=== PATIENT | male | born 1945 | race Caucasian/White ===

== ENCOUNTER → 2017-06-25 13:17 | Outpatient (CLI) | payer MEDICARE, OTHER, SELFPAY ==
[2017-06-25 15:47] LABS: Absolute Lymphocyte Count 0.99 X10^3/ul (0.83-4.51); Absolute Neutrophil Count 2.6 X10^3/uL (2.0-7.7); Basophil# 0.03 X10^3/uL; Basophil% 0.7 % (0-1); Eosinophil# 0.12 X10^3/uL; Eosinophils% 2.9 % (0-5); Hematocrit 41.8 % (40-54); Hemoglobin 13.6 g/dl (13.0-16.5); Lymphocyte # 0.99 X10^3/ul (4.0); Lymphocyte % 24.3 % (19-41); Mean Corp Hgb Conc 32.5 g/gl (32-36); Mean Corpuscular Hgb 28.8 pg (27.0-32.0); Mean Corpuscular Volume 88.6 fL (80-94); Monocyte# 0.36 X10^3/uL; Monocyte% 8.8 % (0-10); Neutrophil # 2.57 X10^3/uL (2.7-7.7); Neutrophil % 63.1 % (47-70); Platelet Count 167 K/mm3 (150-450); RBC Distribution Width CV 14.3 % (11.6-14.6); RBC Distribution Width SD 46.2 fl (35.1-43.9); Red Blood Count 4.72 M/mm3 (4.6-6.2); White Blood Count 4.1 K/mm3 (4.4-11.0)
[2017-06-25 16:07] LABS: POSITIVE COUNT NO; POSITIVE DIFFERENTIAL NO; POSITIVE MORPHOLOGY NO
[2017-06-25 16:30] LABS: ALB/GLOB Ratio 1.2 RATIO (0.9-2.4); AST(SGOT) 19 U/L (15-37); Alanine Aminotransfer ALT/SGPT 33 U/L (12-78); Albumin, Serum 3.6 g/dL (3.4-5.0); Alkaline Phosphatase 59 U/L (45-117); Anion Gap 6 (5-15); BUN 17 mg/dL (7-18); BUN/Creat Ratio 17.9 RATIO (10-20); Calcium,Total 8.7 mg/dL (8.5-10.1); Chloride 106 mmol/L (98-107); Cholesterol 183 mg/dL (200); Creatinine, Serum 0.95 mg/dL (0.70-1.30); EST Glomerular Filtration Rate 83 mL/min (>60); Est Glom Filt Rate - Afr Amer 100 mL/min (>60); Globulin 3.1 g/dL (2.2-4.2); Glucose 109 mg/dL (70-110); Hemoglobin A1c 6.2 % (4.2-6.3); High Density Lipoprotein 56 mg/dL; Magnesium 2.1 mg/dL (1.6-2.6); Potassium 4.3 mmol/L (3.5-5.1); Protein, Total 6.7 g/dL (6.4-8.2); Sodium Level 143 mmol/L (136-145); Thyroid Stim Hormone (TSH) 0.88 uIU/mL (0.358-3.74); Triglycerides 112 mg/dL; Very Low Density Lipoprotein 22 mg/dL (5-40)
[2017-06-26 08:46] LABS: Vitamin B12 557 pg/mL (211-911); Vitamin D,25 Hydroxy 28.2 ng/mL
[2017-06-30 09:40] LABS: ANTINUCLEAR ANTIBODIES DIRECT Negative (Negative)
== END ==
PROVIDERS: Family Provider Family Medicine; PCP Family Medicine; Visit Provider Family Medicine
DX: R53.83 Other fatigue (principal); E11.9 Type 2 diabetes mellitus without complications; E78.5 Hyperlipidemia, unspecified; E83.42 Hypomagnesemia; I10 Essential (primary) hypertension
CPT/HCPCS: 36415; 80053; 80061; 82306; 82607; 83036; 83735; 84443; 85025; 86038; 86225; 86235

== ENCOUNTER 2017-08-05 12:45 | Outpatient (RCR) | payer MEDICARE, OTHER, SELFPAY | END 2017-08-29 23:59 | LOC: DC 12:45 | PROVIDERS: Family Provider Family Medicine; PCP Family Medicine; Visit Provider Family Medicine | DX: E11.9 Type 2 diabetes mellitus without complications (principal); Z71.3 Dietary counseling and surveillance | CPT/HCPCS: 97802 ==

== ENCOUNTER 2017-09-03 16:44 | Outpatient (RCR) | payer MEDICARE, OTHER, SELFPAY | END 2017-09-28 23:59 | LOC: DC 16:44 | PROVIDERS: Family Provider Family Medicine; PCP Family Medicine; Visit Provider Family Medicine | DX: E11.9 Type 2 diabetes mellitus without complications (principal); Z71.3 Dietary counseling and surveillance | CPT/HCPCS: G0109 ==

== ENCOUNTER → 2017-10-15 16:18 | Outpatient (CLI) | payer MEDICARE, OTHER, SELFPAY ==
[2017-10-15 18:17] LABS: Hemoglobin A1c 6.3 % (4.2-6.3)
[2017-10-17 10:57] LABS: Hep C Antibodies <0.1 s/co ratio (0.0-0.9)
== END ==
PROVIDERS: Family Provider Family Medicine; PCP Family Medicine; Visit Provider Family Medicine
DX: E11.9 Type 2 diabetes mellitus without complications (principal); R53.81 Other malaise; R53.83 Other fatigue; E55.9 Vitamin D deficiency, unspecified
CPT/HCPCS: 36415; 82306; 83036; 86803

== ENCOUNTER → 2017-10-22 09:52 | Outpatient (CLI) | payer MEDICARE, OTHER, SELFPAY ==
--- NOTE | 2017-10-22 09:56 | RAD_ITS ---
STUDY: X-RAY - LUMBAR SPINE REASON FOR EXAM: Male, 72 years old. Low back pain, history of prostate CA TECHNIQUE: 5 view(s) of the lumbar spine were obtained. COMPARISON: Previous study of July 21, 2016 FINDINGS: Normal lumbar lordosis. There is a minimal thoracolumbar dextroscoliosis. There is a normal alignment of the vertebrae. There is diffuse endplate spondylosis of the lumbar spine. There is mild narrowing of the L5-S1 disc space. There is no evidence of fracture, spondylolysis, or spondylolisthesis. There is a mild dysraphism of the posterior elements of L5. There are calcified plaques of the abdominal aorta. RAD/L/S Spine Min 4 Views IMPRESSION: 1. Minimal thoracolumbar dextroscoliosis. 2. Diffuse endplate spondylosis of the lumbar spine. 3. Mild narrowing of the L5-S1 disc space. 4. Mild dysraphism of the posterior elements of L5. 5. No lytic or blastic osseous changes are seen. 6. Findings are similar to the previous study. 7. If clinically indicated, nuclear bone scan may be helpful for further evaluation. Electronically Signed: Isaiah Kim MD at 17:16 EDT , Service support ,
== END ==
PROVIDERS: Family Provider Family Medicine; PCP Family Medicine; Visit Provider Family Medicine
DX: M51.36 Other intervertebral disc degeneration, lumbar region (principal)
CPT/HCPCS: 72110

== ENCOUNTER → 2017-12-15 10:30 | Outpatient (CLI) | payer MEDICARE, OTHER, SELFPAY ==
[2017-12-15 12:26] LABS: PSA,Total- Diagnostic 3.66 ng/mL (0.0-4.0)
== END ==
PROVIDERS: Family Provider Family Medicine; PCP Family Medicine; Visit Provider Urology
DX: C61 Malignant neoplasm of prostate (principal)
CPT/HCPCS: 36415; 84153

== ENCOUNTER → 2017-12-23 08:24 | Outpatient (CLI) | payer MEDICARE, OTHER, SELFPAY ==
[2017-12-26 16:08] LABS: Testosterone, Free 10.12 ng/dL (5.00-21.00)
[2017-12-27 07:42] LABS: Testosterone, % Free 1.86 % (1.50-4.20); Testosterone, Total 544 ng/dL (264-916)
== END ==
PROVIDERS: Family Provider Family Medicine; PCP Family Medicine; Visit Provider Family Medicine
DX: R53.83 Other fatigue (principal); Z13.29 Encounter for screening for other suspected endocrine disorder
CPT/HCPCS: 36415; 84402; 84403

== ENCOUNTER → 2017-12-29 09:30 | Outpatient (CLI) | payer MEDICARE, OTHER, SELFPAY ==
--- NOTE | 2017-12-29 09:32 | STE_ITS ---
Reason For Study: Chest Pain; Fatigue Stress Results Protocol: Travis Protocol Maximum Predicted HR: 148 bpm Target HR: 126 bpm% Max imum Predicted HR: 105 % DurationHeart Rate Stage (mm:ss) (bpm) BPCom ment Baseline 64 118/70 No Chest Pain Travis Protocol Stage I 3:00 10 7 110/64No Chest Pain; Mild Dyspnea Travis Protocol Stage II 3:00 13 1 138/64No Chest Pain; Mild Dyspnea Travis Protocol Stage III 1:30 15 5 / No Chest Pain; Moderate Dyspnea Recovery 78 122/70 No Chest Pain Stress Duration: 7:30 mm:ss Maximum Stress HR: 155 bpmM ETS: 9 Baseline Echocardiogram Findings Stress Echo Wall motion Data Resting WMIntermediate WMStress WM Resting Wall Motion Wall Motion Stress All segments Normal. All segments Hyperkinetic. Ejection Fraction 55 %. Ejection Fraction 70 %. Stress Results Heart rate response: appropriate Blood pressure response: appropriate Arrhythmias: none Functional capacity: good Stopped secondary to: dyspnea. EKG Data Baseline ECG: NSR. Peak exercise ECG: no obvious ECG changes. Symptoms with Stress No c/o chest pain during exercise / recovery. Interpretation Summary Negative (adequate) Stress Echocardiogram Ordering Physician: Stevie Cerna D.O. Referring Physician: Jamal Austin M.D. Performed By: Marilee Ontiveros, RDCS, RVT
== END ==
PROVIDERS: Family Provider Family Medicine; PCP Family Medicine; Visit Provider Family Medicine
DX: R07.9 Chest pain, unspecified (principal); R53.83 Other fatigue; E11.9 Type 2 diabetes mellitus without complications
CPT/HCPCS: 93017; 93350

== ENCOUNTER → 2018-03-13 08:52 | Outpatient (CLI) | payer MEDICARE, OTHER, SELFPAY ==
--- NOTE | 2018-03-13 08:56 | US_ITS ---
PROCEDURES: ULTRASOUND AORTA REASON FOR EXAM: Male, 73 years old. Abdominal aortic aneurysm. TECHNIQUE: Ultrasound evaluation of the aorta was performed with real-time and static casillas-scale imaging. COMPARISON: None. FINDINGS: There is no elongation or tortuosity of the abdominal aorta. Atherosclerotic plaque is present, without demonstrated luminal narrowing. Aorta measures: Proximal 2.6 cm. Middle 1.9 cm. Distal 1.6 cm. Aorta measure transversely: Proximal 2.0 cm. Middle 2.1 cm. Distal 1.9 cm. Right iliac artery measures: 1.5 cm. Right iliac artery measure transversely: 1.3 cm. Left iliac artery measures: 1.1 cm. Left iliac artery measure transversely: 0.9 cm. There is no demonstrated aneurysm.. US/Aorta IMPRESSION: No evidence for aortic aneurysm. Electronically Signed: Lake Trent MD at 6:48 EDT , Service support ,
== END ==
PROVIDERS: Family Provider Family Medicine; PCP Family Medicine; Referring Provider Family Medicine; Visit Provider Family Medicine
DX: I71.4 Abdominal aortic aneurysm, without rupture (principal)
CPT/HCPCS: 76775

== ENCOUNTER → 2018-03-20 08:29 | Outpatient (CLI) | payer MEDICARE, OTHER, SELFPAY ==
[2018-03-20 10:33] LABS: T4 Free Direct 0.74 ng/dL (0.76-1.46); Thyroid Stim Hormone (TSH) 1.17 uIU/mL (0.358-3.74)
== END ==
PROVIDERS: Family Provider Family Medicine; PCP Family Medicine; Referring Provider Family Medicine; Visit Provider Family Medicine
DX: R53.81 Other malaise (principal); R53.83 Other fatigue
CPT/HCPCS: 36415; 82533; 84439; 84443

== ENCOUNTER → 2018-04-30 08:03 | Outpatient (CLI) | payer MEDICARE, OTHER, SELFPAY ==
[2018-04-28 14:35] VITALS: BMI 24.6
[2018-04-30 08:59] LABS: Absolute Lymphocyte Count 1.21 X10^3/ul (0.83-4.51); Absolute Neutrophil Count 2.7 X10^3/uL (2.0-7.7); Basophil# 0.02 X10^3/uL; Basophil% 0.4 % (0-1); Eosinophil# 0.14 X10^3/uL; Eosinophils% 3.1 % (0-5); Hematocrit 46.3 % (40-54); Hemoglobin 15.3 g/dl (13.0-16.5); Lymphocyte # 1.21 X10^3/ul (4.0); Lymphocyte % 26.8 % (19-41); Mean Corpuscular Volume 87.9 fL (80-94); Mean Platelet Vol. 10.6 fl (6.2-12.0); Monocyte# 0.46 X10^3/uL; Monocyte% 10.2 % (0-10); Neutrophil # 2.69 X10^3/uL (2.7-7.7); Neutrophil % 59.5 % (47-70); POSITIVE COUNT NO; POSITIVE DIFFERENTIAL NO; POSITIVE MORPHOLOGY NO; Platelet Count 191 K/mm3 (150-450); RBC Distribution Width CV 13.9 % (11.6-14.6); RBC Distribution Width SD 44.6 fl (35.1-43.9); Red Blood Count 5.27 M/mm3 (4.6-6.2); White Blood Count 4.5 K/mm3 (4.4-11.0)
[2018-04-30 09:20] LABS: Free T3 3.1 pg/mL (2.18-3.98); Iron 64 ug/dL (65-175); Iron Binding Capacity,Total 391 ug/dL (250-450); T4 Free Direct 0.87 ng/dL (0.76-1.46); Thyroid Stim Hormone (TSH) 1.53 uIU/mL (0.358-3.74)
[2018-05-01 09:18] LABS: Thyroid Peroxidase AB 9 IU/mL (0-34)
--- OUTSIDE RECORDS SUMMARY | 2018-06-25 01:41 | XMS RPT_ITS ---
:1945 Author Organization OHIP Support Name Relationship Address Phone [employer] Unavailable [address] + [place] [address] SAIHÉTCOR Unavailable [address] + [place] [address] [employer] Unavailable [address] + [place] [address] SAI HÉCTOR Unavailable [address] + [place] [address] [employer] Unavailable [address] + [place] [address] SAICHEYENNEIE Unavailable [address]PERATOR + [place] [address] [employer] Unavailable [address] + [place] [address] SAICHEYENNEIE Unavailable [address]PERATOR + [place] [address] [employer] Unavailable [address] + [place] [address] HÉCTOR GIBBS Unavailable [address] + [place] [address] [employer] Unavailable [address] + [place] [address] HÉCTOR GIBBS Unavailable [address] + [place] [address] [employer] Unavailable [address] + [place] [address] HÉCTOR GIBBS Unavailable [address] + [place] [address] [employer] Unavailable [address] + [place] [address] SAICHEYENNEIE Unavailable [address] + [place] [address] [employer] Unavailable [address] + [place] [address] SAI HÉCTOR Unavailable [address] + [place] [address] BUEM[employer] Unavailable [address] + [place] [address] SAI HÉCTOR Unavailable [address] + [place] [address] [employer] Unavailable [address] + [place] [address] SAI, HÉCTOR Unavailable [address] + [place] [address] BUEM[employer] Unavailable [address] + [place] [address] SAICHEYENNEIE Unavailable [address] + [place] [address] [employer] Unavailable [address] + [place] [address] SAICHEYENNEIE Unavailable [address] + [place] [address] [employer] Unavailable [address] + [place] [address] SAICHEYENNEIE Unavailable [address] + [place] [address] [employer] Unavailable [address] + [place] [address] SAICHEYENNEIE Unavailable [address] + [place] [address] [employer] Unavailable [address] + [place] [address] SAI HÉCTOR Unavailable [address] + [place] [address] [employer] Unavailable [address] + [place] [address] SAI HÉCTOR Unavailable [address] + [place] [address] [employer] Unavailable [address] + [place] [address] HÉCTOR GIBBS Unavailable [address] + [place] [address] Care Team Providers Name Role Phone Compa Luo Chilango Attending Unavailable Compa Luo Admitting Unavailable ErynStevie Primary Care Unavailable ErynStevie Attending Unavailable Eryn, Stevie Referring Unavailable Eryn, Stevie Primary Care Unavailable SadiaCapo Attending Unavailable Eryn, Stevie Primary Care Unavailable Eryn, Stevie Attending Unavailable Eryn, Stevie Primary Care Unavailable Eryn, Stevie Attending Unavailable Eryn, Stevie Referring Unavailable Eryn, Stevie Primary Care Unavailable Eryn, Stevie Attending Unavailable Eryn, Stevie Referring Unavailable Eryn, Stevie Primary Care Unavailable Eryn, Stevie Attending Unavailable Eryn, Stevie Referring Unavailable Eryn, Stevie Primary Care Unavailable Eryn, Stevie Attending Unavailable Eryn, Stevie Primary Care Unavailable Eryn, Stevie Attending Unavailable Eryn, Stevie Primary Care Unavailable Eryn, Stevie Attending Unavailable Eryn, Stevie Referring Unavailable Eryn, Stevie Primary Care Unavailable SadiaCapo Attending Unavailable SadiaCapo Referring Unavailable Eryn, Stevie Primary Care Unavailable Eryn, Stevie Attending Unavailable Eryn, Stevie Primary Care Unavailable Eryn, Stevie Attending Unavailable Eryn, Stevie Referring Unavailable Eryn, Stevie Primary Care Unavailable Jamal Austin Attending Unavailable Eryn, Stevie Attending Unavailable Eryn, Stevie Referring Unavailable Eryn, Stevie Primary Care Unavailable Eryn, Stevie Attending Unavailable Eryn, Stevie Primary Care Unavailable ErynStevie Referring Unavailable Joselyn Krause HORSE SHOER-C Attending Unavailable ErynStevie Referring Unavailable Joselyn Krause HORSE SHOER-C Attending Unavailable Joselyn Krause HORSE SHOER-C Referring Unavailable Eryn, Stevie Primary Care Unavailable Joselyn Krause HORSE SHOER-C Attending Unavailable Joselyn Krause HORSE SHOER-C Referring Unavailable Eryn, Stevie Primary Care Unavailable PROBLEMS PROBLEMS DATE TYPE CONDITION / CODE ATTENDING STATUS SOURCE 03/20/2018 Unknown R53.83 - Other Stevie Cerna Active [place] fatigue / Community R53.83(ICD-10) Hospital Repository 03/20/2018 Unknown R53.81 - Other Stevie Cerna Active [place] malaise / Community R53.81(ICD-10) Hospital Repository 01/27/2018 Unknown R07.9 - Chest pain, MoodispaJamal chiang Active [place] unspecified / Community R07.9(ICD-10) Hospital Repository 11/11/2017 Unknown E11.9 - Type 2 Stevie Cerna Active [place] diabetes mellitus Community without Hospital complications / Repository E11.9(ICD-10) 10/22/2017 Unknown M51.36 - Other Stevie Cerna Active [place] intervertebral disc Community degeneration, lumbar Hospital region / Repository M51.36(ICD-10) 10/15/2017 Unknown E55.9 - Vitamin D Stevie Cerna Active [place] deficiency, Community unspecified / Hospital E55.9(ICD-10) Repository PROCEDURES PROCEDURES No Procedure Records FoundRESULTS RESULTS THYROID Observed: 05/06/2018 Status: F Source: [place] 2:46 PM [facility] REPOSITORY [facility] Imaging Services [address] [place] [address] Thyroid MR#: [id number] Acct: [id number] Name: VENESSA GIBBS Rep #: [id number] : 1945 M 73 From: Venessa Lipscomb MD PCP: Stevie Cerna DO Status: REG CLI Study: Thyroid Date of Exam: 05/06/18 Exam# [id number] Ordering Dr: Joselyn Krause HORSE SHOER-C STUDY: THYROID ULTRASOUND REASON FOR EXAM: Male, 73 years old. Difficulty swallowing TECHNIQUE: Ultrasound evaluation of the thyroid was performed with real-time and static casillas-scale imaging. COMPARISON: None. FINDINGS: RIGHT LOBE: The right lobe of the thyroid gland measures 5.0 x 2.3 x 1.7 cm. There is a homogeneous echotexture. An ovoid well-defined cystic nodule is present in the lateral right thyroid lobe measuring 6 x 5 x 4 mm. Demonstrates mild perinodular vascularity. No echogenic foci. LEFT LOBE: The left lobe of the thyroid gland measures 3.8 x 1.7 x 1.6 cm. There is a homogeneous echotexture. There are no demonstrated solid, cystic or complex lesions. ISTHMUS: The isthmus measures 3 mm . US/Thyroid IMPRESSION: Small right thyroid nodule without suspicious secondary features. Consider continued ultrasound follow-up. Electronically Signed: Venessa Lipscomb MD at 10:06 EST Tel , Service support , CC: Joselyn Krause NP; Stevie Cerna DO Rod Filler: Signed OFFICE VISIT REPORT Observed: 04/30/2018 Status: F Source: [place] 11:[address] [place] [address] OFFICE VISIT Date of Service: 04/28/18 MR#: [id number] Acct: [id number] Patient: VENESSA GIBBS Rep #: [id number] : 1945 Provider: Joselyn Krause NP Age/Sex: 73/M Location: [facility] – [place] Status: Signed Intake Vital Signs04/28/18 Height 5 ft 5 in 04/28/18 Weight: 148 lb 4 oz 04/28/18 Body Mass Index (BMI) 24.6 04/28/18 Blood Pressure 131/82 H 04/28/18 Blood Pressure Location Lt popliteal 04/28/18 Blood Pressure Position Sitting Intake Visit Reasons: POSSIBLE THYROID Medical Aide Required: No Accompanied by: Self Allergies No Known Allergies Allergy (Unverified 04/28/18 14:22) Medications desvenlafaxine succinate ER 50 mg tablet,extended release 24 hr 50 mg PO DAILY 04/28/18 [History Confirmed 04/28/18] lovastatin 10 mg tablet 10 mg PO DAILY 04/28/18 [History Confirmed 04/28/18] PFSH Medical History Anxiety and depression (Acute) Arthritis (Acute) Cataracts, bilateral (Acute) Glaucoma (Acute) Prostate cancer (Acute) Seasonal allergies (Acute) Chronic headaches (Chronic) HTN (hypertension) (Chronic) Family History Unknown Arthritis Diabetes Heart disease Hypertension Social History Smoking Status: Never smoker alcohol intake: never substance use type: does not use Questionnaire Depression Screen PHQ-2/9 PHQ-2 Over the last 2 weeks, how often have you been bothered by any of the following problems? 1. Little interest or pleasure in doing things: more than half the days 2. Feeling down, depressed, or hopeless: several days Total score: 3 If score is 2 or greater, continue 3. Trouble falling or staying asleep, or sleeping too much: more than half the days 4. Feeling tired or having little energy: nearly every day 5. Poor appetite or overeating: not at all 6. Feeling bad about yourself - or that you are a failure or have let yourself and your family down: more than half the days 7. Trouble concentrating on things, such as reading the newspaper or watching television: nearly every day 8. Moving or speaking so slowly that other people could have noticed? - Or the opposite - being so fidgety or restless that you have been moving around a lot more than usual: more than half the days 9. Thoughts that you would be better off or of hurting yourself in some way: not at all Total score: 15 If you checked off any problems, how difficult have these problems made it for you to do your work, take care of things at home, or get along with other people?: extremely difficult Source: Developed by Drs. Raphael Lorenzo, Sujatha Devine, Alex Carter and colleagues, with an educational naomi from [employer] in [place]. Scoring: Total Score Depression Severity Action 1-4 Minimal depression No action needed 5-9 Mild depression Repeat PHQ-9 at follow up 10-14 Moderate depression Make tx plan,consider counseling, fup, prescription HPI HPI Details: VENESSA GIBBS, is a 73 M who presents to the office today for consult of fatigue. Patient of Dr. Cerna. He has had several lab tests done which were found to be normal. His one lab that was abnormal was a sl low T4. Patient reports he sleeps 8-9 hours each night and is still somewhat tired in the am and he takes a short nap each day. Does not fall asleep in the evening while watching TV. Uses C pap at night. No night sweats but does wake to void 2 times each night. Reports he falls back to sleep easily. Reports hot intolerance in the summer but cold intolerance in the winter. No recent change in weight. Severity, modifying factors, context, and associated signs and symptoms are as follows: Thyroid pain: No Energy: Reduced Sleep: Not awakened refreshed Temp: Heat and cold intolerance GI: Normal bowel Weight: Flucuates Eyes: No change in vision Memory: unchanged Diaphoresis: Not significant Skin: Dry Hair : Unchanged Neuro: No numbness, tingling . 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 At time of visit: -Pt denies symptoms of hypertensive emergency (CP,SOB,RANGEL, or blurred vision) and hypotension(dizziness or lightheadedness) -Pt denies symptoms of hypoglycemia ( sweaty, confusion, anxiety, tremor, hunger, palpitations) and hyperglycemia ( polydipsia, polyuria) -Pt denies potential medication adverse effect. Brings medication list which is reviewed with patient. No other medications OTC reported by patient. Continues to work supervisor finishing department. ROS Const Constitutional: Positive for fatigue; no anorexia, body ache, chills, fever(s), frequent falls, decreased energy, malaise, night sweats, weakness, weight change, sleep problems, abnormal sleep pattern, change in appetite, other, headache(s), snoring or excessive sweating Eyes Eyes: No blurry vision, change in vision, double vision, discharge, dry eyes, bulging eyes, floaters, visual disturbances, eye pain, light sensitivity, spots in vision, tunnel vision or other ENT ENT: Positive for nasal congestion and nasal discharge; no abnormal hearing, ear pain, ear discharge, ear pressure, hearing loss, tinnitus, dizziness/vertigo, balance problems, nosebleed/epistaxis, nasal obstruction, nose pain, sinus pressure, sinus pain, post nasal drip, headache(s), facial pain, dental pain, dry mouth, bad breath, hoarseness, lip swelling, mouth lesions, mouth pain, sore throat, tongue swelling, throat swelling, difficulty swallowing, neck pain or other Resp Respiratory: No cough, change in phlegm color, chest congestion, excessive phlegm production, hemoptysis, pain on inspiration, shortness of breath, pain with cough, snoring, stridor, wheezing or other Cardio Cardiology: No chest pain at rest, chest pain with exertion, leg pain with exertion, shortness of breath, dyspnea on exertion, generalized swelling, irregular heart rhythm, lightheadedness, orthopnea, radiating jaw, neck or arm pain, fast heart rate, slow heart rate, palpitations, other or excessive sweating Gastro GI: No abdominal pain, belching, bloating, change in bowel habits, change in stool character, coffee ground emesis, constipation, cramping, diarrhea, heartburn, difficulty swallowing, feeling full early, excessive flatus, incontinent of stools, Vomiting blood/hematemesis, blood in stool, loose stools, Black,tarry stools, nausea/dyspepsia, pain with swallowing, vomiting or other Genitourinary Male: Positive for urinary frequency; no difficulty urinating, burning urination, painful urination, urinary incontinence, urinary urgency, urinary hesitancy, urinary retention, blood in urine, Frequent nighttime urination/ nocturia, post void dribbling, suprapubic fullness, side pain, sexual problems, genital lesions, genital itching, erectile dysfunction, penile discharge, difficulty with ejaculations, blood in semen, scrotal swelling, testicle lump, testicle pain or other Musc Musculoskeletal: No abnormal walking, joint pain, back pain, deformity, joint swelling, limited range of motion, loss of height, muscle cramps, muscle weakness, decreased muscle mass, body aches, neck pain, numbness, radiating pain into limb, stiffness, tingling or other Skin Skin: No acne, hair loss, change in hair, nail changes, boil, change in skin color, dry skin, redness, excessive hair growth, yellowing of the skin, lesions, itching, rash, skin pain, skin ulcer, sores, skin swelling, wounds or other Breast Breast: No other Neuro Neurology: No frequent falls, weakness, visual disturbances, abnormal hearing, headache(s), abnormal walking, numbness or tingling Psych Psychiatric: No abnormal sleep pattern, No change in appetite Endo Endocrine: Positive for fatigue, cold intolerance and increased urination; no change in body appearance, excessive sweating, flushing, heat intolerance, increased thirst/drinking, increased hunger or other Aller/Imm Allergy/Immunologic: No lip swelling, tongue swelling, throat swelling, wheezing or itchy eyes Exam Const General: healthy appearing, well groomed, anxious Nutritional Appearance: well nourished Orientation: oriented x3 HENMT Head: normal to inspection, atraumatic Ears: hearing grossly normal bilaterally Nose: external nose normal Face and sinus: normal facial exam Mouth: oral mucosae normal, moist mucous membranes Teeth and gingiva: dentition normal Eyes General: appearance normal, both eyes and all related structures Eyelids: eyelids normal Conjunctivae: conjunctivae normal Sclera: sclerae normal Pupils: PERRL Neck Neck: normal visual inspection Neck mass: No Thyroid: solitary papule nodule, nontender Resp Effort AND Inspection: normal respiratory effort, able to speak in complete sentences, symmetric chest movement Auscultation: Bilateral: Clear to Auscultation Cardio Rate: regular rate Rhythm: regular rhythm Heart Sounds: S1 normal, S2 normal GI Inspection: normal to inspection Auscultation: normal bowel sounds Palpation: soft, no guarding Musc Musculoskeletal: No muscle weakness Skin General: no rashes or lesions noted Neuro General: oriented x3, moves all extremities Cognition: normal cognition Speech: speech normal Gait: normal gait Extrem General: normal to inspection, normal capillary refill, no edema Psych Appearance: grossly normal Mental Status: mental status grossly normal Mood: congruent mood Affect: normal affect Speech and Movement: speech and movement normal Attitude: cooperative Thought Process: normal Judgment: judgment good Assessment AND Plan Problems 1. Chronic fatigue and malaise R53.82; R53.81 Plan Work up done by Dr. Cerna. Endocrine system was focus. TSH normal but sl low T4. Will recheck as patient does mention some vitamins he is taking. Diaz issues with glucose but highest BG 90-130 with one BG higher according to his BG readings he brought with him. He had a number of questions related to fatigue, diabetes, depression which I answered. Will add iron level as this is not in initial work up. Does not feel he has much in way of GI but could consider celiac work up Question small nodule of thyroid. US ordered. Repeat thyroid labs. Orders Orders: Plan Detail Additional Comments Labs today Thyroid US Will call with results. Spent approximately 60 minutes with patient with over 50% of time spent in discussion and counseling. Coding Level of Care Code Off vis,new,level 4 Diagnoses Chronic fatigue and malaise R53.82; R53.81 04/30/18 4809 <Electronically signed by Joselyn ABURTO> Date Joselyn Goldberg Angelaayala HORSE SHOER-C Cosigner Signature: Date (if applicable) CC: CBC W/DIFF, AUTOMATED Collected: 04/30/2018 Status: F Source: [place] 8:08 AM [facility] REPOSITORY TYPE CODE TESTS RESULT OUT OF RANGE REFERENCE UNITS LAB L100.1000 4.4-11.0 K/mm3 Normal WBC 4.5 LAB L100.1200 4.6-6.2 M/mm3 Normal RBC 5.27 LAB L100.1300 13.0-16.5 g/dl Normal HGB 15.3 LAB L100.1400 40-54 % Normal HCT 46.3 LAB L100.1500 80-94 fL Normal MCV 87.9 LAB L100.1600 27.0-32.0 pg Normal MCH 29.0 LAB L100.1700 32-36 g/gl Normal MCHC 33.0 LAB L100.1810 11.6-14.6 % Normal RDW CV 13.9 LAB L100.1820 35.1-43.9 fl High RDW SD 44.6 LAB L100.1900 150-450 K/mm3 Normal PLT 191 LAB L100.2000 6.2-12.0 fl Normal MPV 10.6 LAB L100.2100 47-70 % Normal NEUT% 59.5 LAB L100.2200 19-41 % Normal LY% 26.8 LAB L100.2300 0-10 % High MONO% 10.2 LAB L100.2400 0-5 % Normal EO% 3.1 LAB L100.2500 0-1 % Normal BASO% 0.4 LAB L100.2550 0.0-0.9 % Normal IM GRAN % 0.000 Result Comment: IG% - Immature Granulocytes (promyelocytes, myelocytes and metamyelocytes) > 1% indicates that a LEFT SHIFT is Present. LAB L100.2620 2.0-7.7 X10 3/uL Normal Absolute Neut 2.7 LAB L100.2720 0.83-4.51 X10 3/ul Normal Absolute Lymph 1.21 Performed By: #### L100.0100 #### [facility] [address] [place], [place], [id number] FREE T3 Collected: 04/30/2018 Status: F Source: [place] 8:08 AM [facility] REPOSITORY TYPE CODE TESTS RESULT OUT OF RANGE REFERENCE UNITS LAB L501.93106 2.18-3.98 pg/mL Normal FREE T3 3.1 Performed By: #### L501.64616, L501.9520, L503.6075, L503.6150, L506.0400 #### [facility] [address] [place], [place], [id number] THYROID STIM HORMONE Collected: 04/30/2018 Status: F Source: [place] (TSH) 8:08 AM [facility] REPOSITORY TYPE CODE TESTS RESULT OUT OF RANGE REFERENCE UNITS LAB L501.9520 0.358-3.74 uIU/mL Normal TSH 1.53 Performed By: #### L501.04048, L501.9520, L503.6075, L503.6150, L506.0400 #### [facility] [place], [place], [id number] (511) IRON BINDING Collected: 04/30/2018 Status: F Source: [facility],[place] 8:08 AM [facility] REPOSITORY TYPE CODE TESTS RESULT OUT OF RANGE REFERENCE UNITS LAB L503.6075 250-450 ug/dL Normal TIBC 391 Performed By: #### L501.26825, L501.9520, L503.6075, L503.6150, L506.0400 #### [facility] [address] [place], [address] IRON Collected: 04/30/2018 Status: F Source: [place] 8:08 AM [facility] REPOSITORY TYPE CODE TESTS RESULT OUT OF RANGE REFERENCE UNITS LAB L503.6150 65-175 ug/dL Low IRON 64 Performed By: #### L501.93436, L501.9520, L503.6075, L503.6150, L506.0400 #### [facility] [address] [place], [place], [id number] T4 FREE DIRECT Collected: 04/30/2018 Status: F Source: [place] 8:08 AM [facility] REPOSITORY TYPE CODE TESTS RESULT OUT OF RANGE REFERENCE UNITS LAB L506.0400 0.76-1.46 ng/dL Normal T4 FREE 0.87 DIRECT Performed By: #### L501.91519, L501.9520, L503.6075, L503.6150, L506.0400 #### [facility] [address] [place], [place], [id number] THYROID PEROXIDASE AB Collected: 04/30/2018 Status: F Source: [place] 8:08 AM [facility] REPOSITORY TYPE CODE TESTS RESULT OUT OF RANGE REFERENCE UNITS LAB L3300.6900 0-34 IU/mL Normal TPO AB 9 [id number] Result Comment: Performed at: [facility] [id number] Mechanic Assistant: Enio Almodovar PhD, Phone: [phone] Performed By: #### L3300.6900 #### [facility] (refer to report for specific site) refer to report for address and phone number THYROID STIM HORMONE Collected: 03/20/2018 Status: F Source: [place] (TSH) 8:34 AM [facility] REPOSITORY TYPE CODE TESTS RESULT OUT OF RANGE REFERENCE UNITS LAB L501.9520 0.358-3.74 uIU/mL Normal TSH 1.17 Performed By: #### L501.9520, L506.0400 #### [facility] [address] [place], [address] T4 FREE DIRECT Collected: 03/20/2018 Status: F Source: [place] 8:34 AM [facility] REPOSITORY TYPE CODE TESTS RESULT OUT OF REFERENCE UNITS RANGE LAB L506.0400 0.76-1.46 ng/dL Low T4 FREE 0.74 DIRECT Performed By: #### L501.9520, L506.0400 #### [facility] [address] [place], [address] CORTISOL SERUM Collected: 03/20/2018 Status: F Source: [place] 8:34 AM [facility] REPOSITORY TYPE CODE TESTS RESULT OUT OF RANGE REFERENCE UNITS LAB L509.6000 3.09-22.40 ug/dL Normal CORTISOL 12.20 Result Comment: Adult (AM) 4.30 - 22.40 ug/dL Adult (PM) 3.09 - 16.66 ug/dL Performed By: #### L509.6000 #### [facility] [address] [place], [address] AORTA Observed: 03/13/2018 Status: F Source: [place] 8:56 AM [facility] REPOSITORY [facility] Imaging Services [address] [place] [address] Aorta MR#: [id number] Acct: [id number] Name: VENESSA GIBBS Rep #: [id number] : 1945 M 73 From: [place] MD PCP: Stevie Cerna DO Status: REG CLI Study: Aorta Date of Exam: 03/13/18 Exam# [id number] Ordering Dr: Stevie Cerna DO PROCEDURES: ULTRASOUND AORTA REASON FOR EXAM: Male, 73 years old. Abdominal aortic aneurysm. TECHNIQUE: Ultrasound evaluation of the aorta was performed with real-time and static casillas-scale imaging. COMPARISON: None. FINDINGS: There is no elongation or tortuosity of the abdominal aorta. Atherosclerotic plaque is present, without demonstrated luminal narrowing. Aorta measures: Proximal 2.6 cm. Middle 1.9 cm. Distal 1.6 cm. Aorta measure transversely: Proximal 2.0 cm. Middle 2.1 cm. Distal 1.9 cm. Right iliac artery measures: 1.5 cm. Right iliac artery measure transversely: 1.3 cm. Left iliac artery measures: 1.1 cm. Left iliac artery measure transversely: 0.9 cm. There is no demonstrated aneurysm.. US/Aorta IMPRESSION: No evidence for aortic aneurysm. Electronically Signed: [place] MD at 6:48 EDT , Service support , CC: Stevie Cerna DO Rod Filler: Signed STRESS TEST ECHO W/O Observed: 12/29/2017 Status: F Source: [place] CONTRAST 5:34 PM [facility] REPOSITORY [facility] Cardiovascular Services [address] [place] [address] Stress Test Echo w/o Contrast MR#: [id number] Acct: [id number] Name: VENESSA GIBBS Rep #: [id number] : 1945 72 From: Jamal Austin MD Primary Care: Stevie Cerna DO Status: REG CLI Ordering Dr: Stevie Cerna DO Sex: M C Reason For Study: Chest Pain; Fatigue Stress Results Protocol: Travis Protocol Maximum Predicted HR: 148 bpm Target HR: 126 bpm% Max imum Predicted HR: 105 % DurationHeart Rate Stage (mm:ss) (bpm) BPCom ment Baseline 64 118/70 No Chest Pain Travis Protocol Stage I 3:00 10 7 110/64No Chest Pain; Mild Dyspnea Travis Protocol Stage II 3:00 13 1 138/64No Chest Pain; Mild Dyspnea Travis Protocol Stage III 1:30 15 5 / No Chest Pain; Moderate Dyspnea Recovery 78 122/70 No Chest Pain Stress Duration: 7:30 mm:ss Maximum Stress HR: 155 bpmM ETS: 9 Baseline Echocardiogram Findings Stress Echo Wall motion Data Resting WMIntermediate WMStress WM Resting Wall Motion Wall Motion Stress All segments Normal. All segments Hyperkinetic. Ejection Fraction 55 %. Ejection Fraction 70 %. Stress Results Heart rate response: appropriate Blood pressure response: appropriate Arrhythmias: none Functional capacity: good Stopped secondary to: dyspnea. EKG Data Baseline ECG: NSR. Peak exercise ECG: no obvious ECG changes. Symptoms with Stress No c/o chest pain during exercise / recovery. Interpretation Summary Negative (adequate) Stress Echocardiogram Ordering Physician: Stevie Cerna D.O. Referring Physician: Jamal Austin M.D. Performed By: Marilee Ontiveros, RDCS, RVT 12/29/171732 Date Jamal Austin MD CC: Stevie Cerna DO Date Dictated: 12/29/17 0939 Date Transcribed: 12/29/171732 Rod Filler: Signed TESTOSTERONE, TOTAL / Collected: 12/23/2017 Status: F Source: [place] FREE 8:27 AM [facility] REPOSITORY Order Comment: Has Patient had X-rays with Contrast this admission? N TYPE CODE TESTS RESULT OUT OF RANGE REFERENCE UNITS LAB L3100.5320 264-916 ng/dL Normal 544 TESTOSTER,TO ANN-MARIE Result Comment: Adult male reference interval is based on a population of healthy nonobese males (BMI <30) between 19 and 39 years old. Lilian et.al. JCEM 2017,102;1222-0979. PMID: [id number]. LAB L3100.5340 5.00-21.00 ng/dL TESTOSTER,FREE Normal 10.12 LAB L3100.5360 1.50-4.20 % TESTOSTER %FREE Normal 1.86 Result Comment: Performed at: - [facility] [address] [id number] Mechanic Assistant: Enio Almodovar PhD, Phone: [phone] Performed at: - [facility] [address] [id number] Mechanic Assistant: Venessa Blanco MD, Phone: [phone] Performed By: #### L3100.5310 #### [facility] (refer to report for specific site) refer to report for address and phone number PSA,TOTAL- DIAGNOSTIC Collected: 12/15/2017 Status: F Source: [place] 10:34 AM [facility] REPOSITORY TYPE CODE TESTS RESULT OUT OF RANGE REFERENCE UNITS LAB L501.9940 0.0-4.0 ng/mL PSA, Normal DIAGNOSTIC 3.66 Result Comment: This test was performed using the TPSA assay method for the IQMS chemistry system. Values obtained with different assay methods cannot be used interchangably. When changing PSA assays in the course of monitoring a patient, additional sequential testing should be carried out to confirm baseline values. Performed By: #### L501.9940 #### [facility] [address], [address] L/S SPINE MIN 4 Observed: 10/22/2017 Status: F Source: [place] VIEWS 9:56 AM [facility] REPOSITORY [facility] Imaging Services [address] [place] [address] L/S Spine Min 4 Views MR#: [id number] Acct: [id number] Name: VENESSA GIBBS Rep #: [id number] : 1945 72 From: Isaiah Kim MD PCP: Stevie Cerna DO Status: REG CLI Study: L/S Spine Min 4 Views Date of Exam: 10/22/17 Exam# [id number] Ordering Dr: Stevie Cerna DO STUDY: X-RAY - LUMBAR SPINE REASON FOR EXAM: Male, 72 years old. Low back pain, history of prostate CA TECHNIQUE: 5 view(s) of the lumbar spine were obtained. COMPARISON: Previous study of July 21, 2016 FINDINGS: Normal lumbar lordosis. There is a minimal thoracolumbar dextroscoliosis. There is a normal alignment of the vertebrae. There is diffuse endplate spondylosis of the lumbar spine. There is mild narrowing of the L5-S1 disc space. There is no evidence of fracture, spondylolysis, or spondylolisthesis. There is a mild dysraphism of the posterior elements of L5. There are calcified plaques of the abdominal aorta. RAD/L/S Spine Min 4 Views IMPRESSION: 1. Minimal thoracolumbar dextroscoliosis. 2. Diffuse endplate spondylosis of the lumbar spine. 3. Mild narrowing of the L5-S1 disc space. 4. Mild dysraphism of the posterior elements of L5. 5. No lytic or blastic osseous changes are seen. 6. Findings are similar to the previous study. 7. If clinically indicated, nuclear bone scan may be helpful for further evaluation. Electronically Signed: Isaiah Kim MD at 17:16 EDT , Service support , CC: Stevie Cerna DO Rod Filler: Signed HEMOGLOBIN A1C Collected: 10/15/2017 Status: F Source: [place] 4:19 PM [facility] REPOSITORY TYPE CODE TESTS RESULT OUT OF RANGE REFERENCE UNITS LAB L501.9985 4.2-6.3 % Normal HGB A1C 6.3 Performed By: #### L501.9985 #### [facility] [address] [place], [place], [address] VITAMIN D,25 HYDROXY Collected: 10/15/2017 Status: F Source: [place] 4:19 PM [facility] REPOSITORY TYPE CODE TESTS RESULT OUT OF RANGE REFERENCE UNITS LAB L506.1000 29.95-100.01 ng/mL Normal Vitamin D 51.0 25-OH Result Comment: Vitamin D 25(OH) Status Range Deficiency <20 ng/mL (50nmol/L) Insuffciency 20 - 30 ng/mL (50 - 75 nmol/L) Sufficiency 30 - 100 ng/mL (75 - 250 nmol/L) Toxicity >100 ng/mL (>250 nmol/L) Performed By: #### L506.1000 #### [facility] [address] [place], [place], [address] HEPATITIS C ANTIBODIES Collected: 10/15/2017 Status: F Source: [place] 4:19 PM [facility] REPOSITORY TYPE CODE TESTS RESULT OUT OF RANGE REFERENCE UNITS LAB L3100.0650 0.0-0.9 s/co ratio Normal HEP C AB <0.1 Result Comment: Negative: < 0.8 Indeterminate: 0.8 - 0.9 Positive: > 0.9 The CDC recommends that a positive HCV antibody result be followed up with a HCV Nucleic Acid Amplification test (585809). Performed at: [facility] [id number] Mechanic Assistant: Enio Almodovar PhD, Phone: [phone] Performed By: #### L3100.0625 #### [facility] (refer to report for specific site) refer to report for address and phone number CBC W/DIFF, AUTOMATED Collected: 06/25/2017 Status: F Source: [place] 1:20 PM [facility] REPOSITORY Order Comment: ATE A LIGHT LUNCH TYPE CODE TESTS RESULT OUT OF RANGE REFERENCE UNITS LAB L100.1000 4.4-11.0 K/mm3 Low WBC 4.1 LAB L100.1200 4.6-6.2 M/mm3 Normal RBC 4.72 LAB L100.1300 13.0-16.5 g/dl Normal HGB 13.6 LAB L100.1400 40-54 % Normal HCT 41.8 LAB L100.1500 80-94 fL Normal MCV 88.6 LAB L100.1600 27.0-32.0 pg Normal MCH 28.8 LAB L100.1700 32-36 g/gl Normal MCHC 32.5 LAB L100.1810 11.6-14.6 % Normal RDW CV 14.3 LAB L100.1820 35.1-43.9 fl High RDW SD 46.2 LAB L100.1900 150-450 K/mm3 Normal PLT 167 LAB L100.2000 6.2-12.0 fl Normal MPV 12.0 LAB L100.2100 47-70 % Normal NEUT% 63.1 LAB L100.2200 19-41 % Normal LY% 24.3 LAB L100.2300 0-10 % Normal MONO% 8.8 LAB L100.2400 0-5 % Normal EO% 2.9 LAB L100.2500 0-1 % Normal BASO% 0.7 LAB L100.2550 0.0-0.9 % Normal IM GRAN % 0.200 Result Comment: IG% - Immature Granulocytes (promyelocytes, myelocytes and metamyelocytes) > 1% indicates that a LEFT SHIFT is Present. LAB L100.2620 2.0-7.7 X10 3/uL Normal Absolute Neut 2.6 LAB L100.2720 0.83-4.51 X10 3/ul Normal Absolute Lymph 0.99 Performed By: #### L100.0100 #### [facility] [address] [place], [address] COMPREHENSIVE METABOLIC Collected: 06/25/2017 Status: F Source: [place] PROFIL 1:20 PM [facility] REPOSITORY Order Comment: ATE A LIGHT LUNCH TYPE CODE TESTS RESULT OUT OF RANGE REFERENCE UNITS LAB L501.0100 70-110 mg/dL Normal GLU 109 LAB L501.1000 7-18 mg/dL Normal BUN 17 LAB L501.1100 0.70-1.30 mg/dL Normal 0.95 CREAT,SERUM Result Comment: The validity of the calculated GFR AND GFRAA in patients over 70 years has not been determined. Clinical correlation is essential. LAB L501.1110 >60 mL/min Normal EST GFR 83 Result Comment: Non- GFR Calc LAB L501.1115 >60 mL/min Normal EST GFR - AA 100 Result Comment: GFR Calc LAB L501.1300 10-20 RATIO Normal BUN/CRE 17.9 LAB L501.1500 6.4-8.2 g/dL T Normal PROT 6.7 LAB L501.1800 3.4-5.0 g/dL Normal ALB 3.6 Result Comment: Please note revised Albumin AND Globulin reference range effective 2017. LAB L501.1950 2.2-4.2 g/dL Normal GLOB 3.1 LAB L501.2000 0.9-2.4 RATIO Normal A/G 1.2 LAB L501.2200 8.5-10.1 mg/dL Normal CA 8.7 LAB L501.4100 15-37 U/L Normal AST 19 LAB L501.4305 45-117 U/L Normal ALK P 59 LAB L501.4405 12-78 U/L Normal ALT 33 LAB L501.4600 0.20-1.00 mg/dL Normal T BILI 0.30 LAB L501.5300 136-145 mmol/L Normal NA 143 LAB L501.5600 3.5-5.1 mmol/L Normal K 4.3 LAB L501.5900 98-107 mmol/L Normal CL 106 LAB L501.6100 21.0-32.0 mmol/L Normal CO2 31.0 LAB L501.6200 5-15 Normal GAP 6 Performed By: #### L500.4050, L500.4100, L501.5200, L501.9520 #### [facility] [address] [place], [place], [id number] LIPID PROFILE Collected: 06/25/2017 Status: F Source: [place] 1:20 PM [facility] REPOSITORY Order Comment: ATE A LIGHT LUNCH TYPE CODE TESTS RESULT OUT OF RANGE REFERENCE UNITS LAB L501.4900 200 mg/dL Normal CHOL 183 Result Comment: <200 mg/dL Desirable 200-240 mg/dL Borderline >240 mg/dL High Risk LAB L501.5000 mg/dL Normal TRIG 112 Result Comment: The drugs N-Acetylcysteine and Metamizole may falsely depress this assay. Serum Triglycerides Reference Interval Normal <150 mg/dL Borderline high 150 - 199 mg/dL High 200 - 499 mg/dL Very High > or = 500 mg/dL LAB L501.6400 mg/dL Normal HDL 56 Result Comment: The drugs N-Acetylcysteine and Metamizole may falsely depress this assay. Reference Range HDL <40 mg/dL Low HDL Cholesterol HDL >or= 60 mg/dL High HDL Cholesterol LAB L501.6500 0-130 mg/dL Normal LDL 105 LAB L501.6600 5-40 mg/dL Normal VLDL 22 Performed By: #### L500.4050, L500.4100, L501.5200, L501.9520 #### [facility] [address] [place], [place], [address] MAGNESIUM Collected: 06/25/2017 Status: F Source: [place] 1:20 PM [facility] REPOSITORY Order Comment: ATE A LIGHT LUNCH TYPE CODE TESTS RESULT OUT OF RANGE REFERENCE UNITS LAB L501.5200 1.6-2.6 mg/dL Normal MG 2.1 Result Comment: Please note revised Magnesium reference range effective 2017. Performed By: #### L500.4050, L500.4100, L501.5200, L501.9520 #### [facility] [address] [place], [address] THYROID STIM HORMONE Collected: 06/25/2017 Status: F Source: [place] (TSH) 1:20 PM [facility] REPOSITORY Order Comment: ATE A LIGHT LUNCH TYPE CODE TESTS RESULT OUT OF RANGE REFERENCE UNITS LAB L501.9520 0.358-3.74 uIU/mL Normal TSH 0.88 Performed By: #### L500.4050, L500.4100, L501.5200, L501.9520 #### [facility] [address] [place], [place], [address] HEMOGLOBIN A1C Collected: 06/25/2017 Status: F Source: [place] 1:20 PM [facility] REPOSITORY Order Comment: ATE A LIGHT LUNCH TYPE CODE TESTS RESULT OUT OF RANGE REFERENCE UNITS LAB L501.9985 4.2-6.3 % Normal HGB A1C 6.2 Performed By: #### L501.9985 #### [facility] [address] [place], [address] VITAMIN B12 Collected: 06/25/2017 Status: F Source: [place] 1:20 PM [facility] REPOSITORY Order Comment: ATE A LIGHT LUNCH TYPE CODE TESTS RESULT OUT OF RANGE REFERENCE UNITS LAB L503.0105 211-911 pg/mL Normal Vitamin B12 557 Performed By: #### L503.0105, L506.1000 #### [facility] [address] [place], [address] VITAMIN D,25 HYDROXY Collected: 06/25/2017 Status: F Source: [place] 1:20 PM [facility] REPOSITORY Order Comment: ATE A LIGHT LUNCH TYPE CODE TESTS RESULT OUT OF RANGE REFERENCE UNITS LAB L506.1000 ng/mL Normal Vitamin D 28.2 25-OH Result Comment: Vitamin D 25(OH) Status Range Deficiency <20 ng/mL (50nmol/L) Insuffciency 20 - 30 ng/mL (50 - 75 nmol/L) Sufficiency 30 - 100 ng/mL (75 - 250 nmol/L) Toxicity >100 ng/mL (>250 nmol/L) Performed By: #### L503.0105, L506.1000 #### [facility] [address] [place], [address] ERICA W/ REFLEX MULT Collected: 06/25/2017 Status: F Source: [place] CONFIRM 1:20 PM [facility] REPOSITORY Order Comment: ATE A LIGHT LUNCH TYPE CODE TESTS RESULT OUT OF RANGE REFERENCE UNITS LAB L3100.5475 Negative Normal Negative ERICA-DIRECT Result Comment: Performed at: - [facility] [id number] Mechanic Assistant: Enio Almodovar PhD, Phone: [phone] Performed By: #### L3100.5450 #### [facility] (refer to report for specific site) refer to report for address and phone number PSA,TOTAL- DIAGNOSTIC Collected: 06/19/2017 Status: F Source: [place] 8:00 AM [facility] REPOSITORY TYPE CODE TESTS RESULT OUT OF RANGE REFERENCE UNITS LAB L501.9940 0.0-4.0 ng/mL PSA, Normal DIAGNOSTIC 3.36 Result Comment: This test was performed using the TPSA assay method for the IQMS chemistry system. Values obtained with different assay methods cannot be used interchangably. When changing PSA assays in the course of monitoring a patient, additional sequential testing should be carried out to confirm baseline values. Performed By: #### L501.9940 #### [facility] [address] [place], [address] ALLERGIES ALLERGIES DATE TYPE / CODE NAME / CODE REACTION SEVERITY SOURCE 04/28/2018 Drug No Known Unknown [facility] Allergy/4160 Allergies/F00 Hospital 47289(SNOMED 4780046(RXNOR Repository CT) M) ENCOUNTERS ENCOUNTERS ADMIT/DISCHARGE ACCOUNT NUMBER ADMITTING ENCOUNTER LOCATION SOURCE CLASS 05/06/2018 [id number] Ambulatory [facility] ding:US Repository 04/30/2018 [id number] Ambulatory [facility] ding:LAB Repository 04/28/2018/04/28/20 [id number] Ambulatory BMSBuilding: [address] Repository 03/20/2018 [id number] Ambulatory [facility] ding:LAB.FUT Repository URE 03/13/2018 [id number] Ambulatory [facility] ding:US Repository 12/29/2017 [id number] Ambulatory [facility] ding:[facility]S Repository 12/29/2017 [id number] [facility] 12/23/2017 [id number] Ambulatory [facility] ding:LAB.FUT Repository URE 12/15/2017 [id number] Ambulatory [facility] ding:MTLAB Repository 11/05/2017 [id number] Ambulatory [facility] ding:DC Repository 10/22/2017 [id number] Ambulatory [facility] ding:MTRAD Repository 10/15/2017 [id number] [facility] ding:LAB.FUT Repository URE 10/13/2017 [id number] Ambulatory [facility] ding:BFHLAB Repository 09/03/2017/09/29/19 [id number] Ambulatory [address] ding:[place] Repository 08/19/2017/08/20/19 [id number] Compa Luo [address] [facility] ing:Juvencio ndRoom: Room 2 08/05/2017/08/30/[id number] ding:[place] Repository 06/25/2017 [id number] Ambulatory [facility] ding:LAB.FUT Repository URE 06/19/2017 [id number] Ambulatory [facility] ding:LAB.FUT Repository URE 05/27/2017/05/31/20 [id number] Ambulatory [address] ding:[place] Repository PAYERS PAYERS ENCOUNTER GUARANTOR PAYER SUBSCRIBER SOURCE 05/06/2018 VENESSA E Primary VENESSA E [place] [id number] Insurance:MEDICARE SHEARERDOB: Community CROSSWIND PART A [facility] [id number]: Repository [address]Crv: 330 [id number] [phone] () Date:2018-04-30 05/06/2018 Secondary VENESSA E [place] Insurance:AARPPolicy SHEARERDOB: Community Number: [id number] Hospital [id number] Repository Date:3092-26-87[address], [place] [address]HB: 05/06/2018 Tertiary NOT GIVENUNK [place] Insurance:SELF PAY [facility] Number: Effective Repository Date:2018-04-30 04/30/2018 VENESSA E Primary VENESSA E [place] [id number] Insurance:MEDICARE SHEARERDOB: Community CROSSWIND PART A [facility] [id number] [place] Number: Repository [address]Khm: 330 [id number] [phone] () Date:2018-04-30 04/30/2018 Secondary VENESSA E [place] Insurance:AARPPolicy SHEARERDOB: Community Number: [id number] Hospital [id number] Repository Date:5095-69-76ZR [address], [place] [address]NQ: 04/30/2018 Tertiary NOT GIVENUNK [place] Insurance:SELF PAY [facility] Number: Effective Repository Date:2018-04-30 04/28/2018 VENESSA E Primary VENESSA E [place] [id number] Insurance:MEDICARE SHEARERDOB: Community CROSSWIND PART A [facility] [id number]: Repository [address]Gin: 330 [id number] [phone] () Date:2018-03-23 04/28/2018 Secondary VENESSA E [place] Insurance:AARPPolicy SHEARERDOB: Community Number: [id number] Hospital [id number] Repository Date:5703-72-56RR [address], [place] [address]RR: 04/28/2018 Tertiary NOT GIVENUNK [place] Insurance:SELF PAY [facility] Number: Effective Repository Date:2018-04-28 03/20/2018 VENESSA E Primary VENESSA [place] [id number] Insurance:MEDICARE SHEARERDOB: Community CROSSWIND PART A [facility] [id number] Number: Repository [address]Sog: 330 [id number] [phone] () Date:2018-03-19 03/20/2018 Secondary VENESSA [place] Insurance:AARPPolicy SHEARERDOB: Community Number: [id number] Hospital [id number] Repository Date:4684-57-76[address], [place] [address]PT: 03/20/2018 Tertiary NOT GIVENUNK [place] Insurance:SELF PAY [facility] Number: Effective Repository Date:2018-03-19 03/13/2018 VENESSA E Primary VENESSA [place] [id number] Insurance:MEDICARE SHEARERDOB: Community Crosswind PART A [facility] [id number] [place] Number: Repository [address]Nam: 330 [id number] [phone] () Date:2018-03-01 03/13/2018 Secondary VENESSA [place] Insurance:AARPPolicy SHEARERDOB: Community Number: [id number] Hospital [id number] Repository Date:0125-95-19OJ [address]IQRLB, [place] [address]CW: 03/13/2018 Tertiary NOT GIVENUNK [place] Insurance:SELF PAY [facility] Number: Effective Repository Date:2018-03-01 12/29/2017 Venessa E Primary Venessa Harper [place] [id number] Insurance:MEDICARE ShearerDOB: Community Crosswind PART A [facility] [id number] [facility] [place] Number: Repository [address]Pkv: 330 [id number] [phone] () Date:2017-12-22 12/29/2017 Secondary Venessa Leroy [place] Insurance:AARPPolicy ShearerDOB: Community Number: [id number] Hospital [id number] Repository Date:1084-74-76JY [address], [place] [address]LL: 12/29/2017 Tertiary NOT GIVENUNK [place] Insurance:SELF PAY [facility] Number: Effective Repository Date:2017-12-22 12/29/2017 Venessa E Primary Venessa [place] [id number] Insurance:MEDICARE ShearerDOB: Community Crosswind PART A [facility] [id number] Number: Repository [address]Ewf: [phone] [id number] [phone] () Date:2017-12-22 12/29/2017 Secondary Venessa E [place] Insurance:AARPPolicy ShearerDOB: Community Number: [id number] Hospital [id number] Repository Date:9957-08-98GY [address]JCFMTIV, [place] [address]PF: 12/29/2017 Tertiary NOT GIVENUNK [place] Insurance:SELF PAY [facility] Number: Effective Repository Date:2017-12-29 12/23/2017 Venessa E Primary Venessa Friend [id number] Insurance:MEDICARE ShearerDOB: Community Crosswind PART A [facility] [id number] Number: Repository [address]Aru: 330 [id number] [phone] () Date:2017-12-22 12/23/2017 Secondary Venessa E [place] Insurance:AARPPolicy ShearerDOB: Community Number: [id number] Hospital [id number] Repository Date:5803-01-89[address], [place] [address]OX: 12/23/2017 Tertiary NOT GIVENUNK [place] Insurance:SELF PAY [facility] Number: Effective Repository Date:2017-12-22 12/15/2017 Venessa E Primary Venessa Harper [place] [id number] Insurance:MEDICARE ShearerDOB: Community Crosswind PART A [facility] [id number], [place] Number: Repository [address]Dhe: 330 [id number] [phone] (HP) Date:2017-12-15 12/15/2017 Secondary Venessa Harper [place] Insurance:AARPPolicy ShearerDOB: Community Number: [id number] [facility] [id number] Repository Date:0705-42-71PJ [address], [place] [address]QO: 12/15/2017 Tertiary NOT GIVENUNK [place] Insurance:SELF PAY [facility] Number: Effective Repository Date:2017-12-15 11/05/2017 Venessa E Primary Venessa Harper [place] [id number] Insurance:MEDICARE ShearerDOB: Community Crosswind PART A [facility] [id number] [place] Number: Repository [address]Ohp: 330 [id number] [phone] (HP) Date:2017-05-20 11/05/2017 Secondary Venessa E [place] Insurance:AARPPolicy ShearerDOB: Community Number: [id number] Hospital [id number] Repository Date:9302-30-46[address]RQFWNNT, [place] [address]QA: 11/05/2017 Tertiary NOT GIVENUNK [place] Insurance:SELF PAY [facility] Number: Effective Repository Date:2017-09-29 10/22/2017 Venessa E Primary Venessa Leroy [place] [id number] Insurance:MEDICARE ShearerDOB: Community Crosswind PART A [facility] [id number] Regional Medical [facility] [place] Number: Repository [address]Chy: 330 [id number] [phone] (HP) Date:2017-10-22 10/22/2017 Secondary Venessa E [place] Insurance:AARPPolicy ShearerDOB: Community Number: [id number] Hospital [id number] Repository Date:8555-82-93[address]FDVVQMA, [place] [address]VX: 10/22/2017 Tertiary NOT GIVENUNK [place] Insurance:SELF PAY [facility] Number: Effective Repository Date:2017-10-22 10/15/2017 Venessa [place] Primary Venessa Friend [id number] Insurance:MEDICARE ShearerDOB: Community Crosswind PART A [facility] [id number] Number: Repository [address]Mav: 330 [id number] [phone] (HP) Date:2017-10-15 10/15/2017 Secondary Venessa E [place] Insurance:AARPPolicy ShearerDOB: Community Number: [id number] Hospital [id number] Repository Date:0510-60-08[address]VJULLNK, [place] [address]YC: 10/15/2017 Tertiary NOT GIVENUNK [place] Insurance:SELF PAY [facility] Number: Effective Repository Date:2017-10-15 10/13/2017 Venessa E Primary Venessa [place] [id number] Insurance:MEDICARE ShearerDOB: Community Crosswind PART A [facility] [id number] [place] Number: Repository [address]Fnz: 330 [id number] [phone] () Date:2017-10-13 10/13/2017 Secondary Venessa [place] Insurance:AARPPolicy ShearerDOB: Community Number: [id number] Hospital [id number] Repository Date:5131-49-02ZF [address]VKVTUIW, [place] [address]NJ: 10/13/2017 Tertiary NOT GIVENUNK [place] Insurance:SELF PAY [facility] Number: Effective Repository Date:2017-10-13 09/03/2017 Venessa E Primary Venessa Harper [place] [id number] Insurance:MEDICARE ShearerDOB: Community Crosswind PART A [facility] [id number] Regional Medical Center [place] Number: Repository [address]Aox: 330 [id number] [phone] (HP) Date:2017-05-20 09/03/2017 Secondary Venessa E [place] Insurance:AARPPolicy ShearerDOB: Community Number: [id number] [id number] Repository Date:[id number] [address], [place] [address]GT: 09/03/2017 Tertiary NOT GIVENUNK Ronna Insurance:SELF PAY [facility] Number: Effective Repository Date:2017-08-30 08/19/2017 VENESSA E Primary VENESSA Nagy SHEARERDOB: Insurance:1500 SHEARERDOB: [facility] [id number] MEDICARE [id number] System [employer] PRIMARYPoly Number: 5 [place] Repository [place], [place] [address]Aml: Date:2017-07-13 [id number]: [id number] () Name:CD:[id number] O ()Tel: (779) [address] [address]HPUGIVPWD, [phone] () [place] [phone]: 08/19/2017 Secondary VENESSA Nagy Insurance:1500 SHEARERDOB: Self [facility] [address] [id number] System Number: Effective 5 CROSSWIND Repository Date:2017-07-13 - [place], [place] [id number] [address]Cga: Name:CD:[id number] O [facility] [address], [place] ()Tel: [phone]: () [phone] 08/05/2017 Venessa E Primary Venessa Friend [id number] Insurance:MEDICARE ShearerDOB: Community [place] PART A [facility] [id number] Number: Repository [id number]: [phone] [id number] [phone] () Date:2017-05-20 08/05/2017 Secondary Venessa Friend Insurance:AARPPolicy ShearerDOB: Community Number: [id number] [facility] [id number] Repository Date:[id number] [address], [place] [address]PR: 08/05/2017 Tertiary NOT GIVENUNK [place] Insurance:SELF PAY [facility] Number: Effective Repository Date:2017-07-30 06/25/2017 Venessa E Primary Venessa Harper [place] [id number] Insurance:MEDICARE ShearerDOB: Community [place] PART A [facility] [id number] Number: Repository [phone]: [phone] [id number] [phone] () Date:2017-06-24 06/25/2017 Secondary Venessa E Ronna Insurance:AARPPolicy ShearerDOB: Community Number: [id number] [facility] [id number] Repository Date:[id number] [address], [place] [address]JG: 06/25/2017 Tertiary NOT GIVENUNK Ronna Insurance:SELF PAY [facility] Number: Effective Repository Date:2017-06-24 06/19/2017 Venessa E Primary Venessa Harper Ronna [id number] Insurance:MEDICARE ShearerDOB: Community [place] PART A [facility] [id number] Number: Repository [id number]: [phone] [id number] [phone] () Date:2017-06-08 06/19/2017 Secondary Venessa Harper [place] Insurance:AARPPolicy ShearerDOB: Community Number: [id number] [facility] [id number] Repository Date:[id number] [address], [place] [address]DJ: 06/19/2017 Tertiary NOT GIVENUNK Ronna Insurance:SELF PAY [facility] Number: Effective Repository Date:2017-06-08 05/27/2017 Venessa E Primary Venessa Harper Ronna [id number] Insurance:MEDICARE ShearerDOB: Community [place] PART A [facility] [id number] Number: Repository [id number]: [phone] [id number] [phone] () Date:2017-05-20 05/27/2017 Secondary Venessa Friend Insurance:Marietta BeattyB: [facility] Number: [id number] [facility] [id number] Repository Date:[id number] [address], [place] [address]IK: 05/27/2017 Tertiary NOT GIVENJOSE G Ronna Insurance:SELF PAY [facility] Number: Effective Repository Date:2017-05-20
== END ==
PROVIDERS: Family Provider Family Medicine; PCP Family Medicine; Referring Provider Nurse Practitioner; Visit Provider Nurse Practitioner
DX: E11.9 Type 2 diabetes mellitus without complications (principal); R53.81 Other malaise; R53.82 Chronic fatigue, unspecified
CPT/HCPCS: 36415; 83540; 83550; 84439; 84443; 84481; 85025; 86376

== ENCOUNTER → 2018-05-06 14:44 | Outpatient (CLI) | payer MEDICARE, OTHER, SELFPAY ==
[2018-04-28 14:35] VITALS: BMI 24.6
--- NOTE | 2018-05-06 14:46 | US_ITS ---
STUDY: THYROID ULTRASOUND REASON FOR EXAM: Male, 73 years old. Difficulty swallowing TECHNIQUE: Ultrasound evaluation of the thyroid was performed with real-time and static casillas-scale imaging. COMPARISON: None. FINDINGS: RIGHT LOBE: The right lobe of the thyroid gland measures 5.0 x 2.3 x 1.7 cm. There is a homogeneous echotexture. An ovoid well-defined cystic nodule is present in the lateral right thyroid lobe measuring 6 x 5 x 4 mm. Demonstrates mild perinodular vascularity. No echogenic foci. LEFT LOBE: The left lobe of the thyroid gland measures 3.8 x 1.7 x 1.6 cm. There is a homogeneous echotexture. There are no demonstrated solid, cystic or complex lesions. ISTHMUS: The isthmus measures 3 mm . US/Thyroid IMPRESSION: Small right thyroid nodule without suspicious secondary features. Consider continued ultrasound follow-up. Electronically Signed: Antoine Lipscomb MD at 10:06 EST Tel , Service support ,
== END ==
PROVIDERS: Family Provider Family Medicine; PCP Family Medicine; Referring Provider Nurse Practitioner; Visit Provider Nurse Practitioner
DX: R53.81 Other malaise (principal); R53.82 Chronic fatigue, unspecified; R13.10 Dysphagia, unspecified
CPT/HCPCS: 76536

== ENCOUNTER → 2018-06-05 07:50 | Outpatient (CLI) | payer MEDICARE, SELFPAY ==
[2018-04-28 14:35] VITALS: BMI 24.6
== END ==
PROVIDERS: Family Provider Family Medicine; PCP Family Medicine; Referring Provider Urology; Visit Provider Urology
DX: C61 Malignant neoplasm of prostate (principal)
CPT/HCPCS: 36415

== ENCOUNTER → 2018-06-29 15:33 | Outpatient (CLI) | payer MEDICARE, SELFPAY ==
[2018-06-29 14:56] VITALS: BMI 24.6
== END ==
PROVIDERS: Family Provider Family Medicine; PCP Family Medicine; Referring Provider Nurse Practitioner; Visit Provider Nurse Practitioner
DX: R73.03 Prediabetes (principal)
CPT/HCPCS: 36415; 80053

== ENCOUNTER → 2018-12-28 14:50 | Outpatient (CLI) | payer MEDICARE, SELFPAY ==
[2018-06-29 14:56] VITALS: BMI 24.6
== END ==
LOC: LAB 14:52 → LAB.FUTURE 01-11 06:40
PROVIDERS: Family Provider Family Medicine; PCP Family Medicine; Referring Provider Urology; Visit Provider Urology
DX: C61 Malignant neoplasm of prostate (principal)
CPT/HCPCS: 36415

== ENCOUNTER → 2018-12-30 06:41 | Outpatient (CLI) | payer MEDICARE, SELFPAY ==
[2018-06-29 14:56] VITALS: BMI 24.6
== END ==
PROVIDERS: Family Provider Family Medicine; PCP Family Medicine; Referring Provider Urology; Visit Provider Urology
DX: C61 Malignant neoplasm of prostate (principal)
CPT/HCPCS: 36415

== ENCOUNTER → 2019-04-06 06:59 | Outpatient (CLI) | payer MEDICARE, SELFPAY ==
[2018-06-29 14:56] VITALS: BMI 24.6
== END ==
PROVIDERS: Family Provider Family Medicine; PCP Family Medicine; Referring Provider Family Medicine; Visit Provider Family Medicine
DX: E11.9 Type 2 diabetes mellitus without complications (principal); I10 Essential (primary) hypertension; E78.5 Hyperlipidemia, unspecified; E55.9 Vitamin D deficiency, unspecified; Z51.81 Encounter for therapeutic drug level monitoring
CPT/HCPCS: 36415

== ENCOUNTER → 2019-04-12 15:46 | Outpatient (CLI) | payer MEDICARE, SELFPAY ==
[2018-06-29 14:56] VITALS: BMI 24.6
== END ==
LOC: LAB 15:48 → LAB.FUTURE 04-13 07:16
PROVIDERS: Family Provider Family Medicine; PCP Family Medicine; Referring Provider Urology; Visit Provider Urology
DX: C61 Malignant neoplasm of prostate (principal)
CPT/HCPCS: 36415

== ENCOUNTER → 2019-04-18 13:56 | Outpatient (CLI) | payer MEDICARE, SELFPAY ==
[2018-06-29 14:56] VITALS: BMI 24.6
== END ==
PROVIDERS: Family Provider Family Medicine; PCP Family Medicine; Referring Provider Urology; Visit Provider Urology
DX: C61 Malignant neoplasm of prostate (principal)

== ENCOUNTER → 2019-06-07 14:37 | Outpatient (CLI) | payer MEDICARE, SELFPAY ==
[2018-06-29 14:56] VITALS: BMI 24.6
--- NOTE | 2019-06-07 14:43 | RAD_ITS ---
STUDY: X-RAY - SKULL REASON FOR EXAM: Male, 74 years old. mid left forehead, jade abnormality -- no injury TECHNIQUE: 5 view(s) of the skull were obtained. COMPARISON: None. FINDINGS: There is no demonstrated soft tissue swelling. Normal osseous calvarium. Normal visualized facial bones. Normal visualized paranasal sinuses. RAD/Skull min 4 Views IMPRESSION: Normal x-ray examination of the skull. Electronically Signed: Ritchie Lopez DO at 11:06 EST Tel , Service support ,
== END ==
PROVIDERS: Family Provider Family Medicine; PCP Family Medicine; Referring Provider Family Medicine; Visit Provider Family Medicine
DX: M89.9 Disorder of bone, unspecified (principal)
CPT/HCPCS: 70260

== ENCOUNTER → 2019-06-14 08:42 | Outpatient (CLI) | payer MEDICARE, SELFPAY ==
[2018-06-29 14:56] VITALS: BMI 24.6
--- NOTE | 2019-06-14 08:45 | US_ITS ---
STUDY: Ultrasound of 400 REASON FOR EXAM: Male, 74 years old. PALPABLE LUMP FOREHEAD TECHNIQUE: Ultrasound evaluation of the thyroid was performed with real-time and static casillas-scale imaging. COMPARISON: None. FINDINGS: There is a heterogeneous well-defined isoechoic focus of the scalp in the region of interest measuring 1.7 x 1.7 x 0.3 cm. There is no cystic or calcific component. US/Head/Neck Soft Tissue IMPRESSION: Heterogeneous well-defined isoechoic subcutaneous focus of the scalp in the region of interest measuring 1.7 x 1.7 x 0.3 cm. If clinically indicated, this would be easily accessible for ultrasound-guided biopsy. Electronically Signed: Isaiah Kim MD at 23:09 EST , Service support ,
== END ==
PROVIDERS: Family Provider Family Medicine; PCP Family Medicine; Referring Provider Family Medicine; Visit Provider Family Medicine
DX: M89.9 Disorder of bone, unspecified (principal)
CPT/HCPCS: 76536

== ENCOUNTER → 2019-06-25 08:12 | Outpatient (CLI) | payer MEDICARE, SELFPAY ==
[2019-06-21 14:53] VITALS: BMI 24.6
[2019-06-25 09:05] LABS: Absolute Lymphocyte Count 1.36 X10^3/uL (0.83-4.51); Absolute Neutrophil Count 2.7 X10^3/uL (2.0-7.7); Basophil# 0.04 X10^3/uL; Basophil% 0.8 % (0-1); Eosinophil# 0.17 X10^3/uL; Eosinophils% 3.6 % (0-5); Hematocrit 46.1 % (40-54); Hemoglobin 14.9 g/dL (13.0-16.5); Lymphocyte # 1.36 X10^3/ul (4.0); Lymphocyte % 28.5 % (19-41); Mean Corp Hgb Conc 32.3 g/dL (32-36); Mean Corpuscular Hgb 28.9 pg (27.0-32.0); Mean Corpuscular Volume 89.3 fL (80-94); Monocyte# 0.48 X10^3/uL; NRBC Flagged by Analyzer 0 % (0-5); Neutrophil # 2.72 X10^3/uL (2.7-7.7); Neutrophil % 56.9 % (47-70); Platelet Count 185 K/mm3 (150-450); RBC Distribution Width CV 13.2 % (11.6-14.6); RBC Distribution Width SD 43.5 fl (35.1-43.9); Red Blood Count 5.16 M/mm3 (4.6-6.2); White Blood Count 4.8 K/mm3 (4.4-11.0)
[2019-06-25 09:15] LABS: Microalbumin,Random Urine 9.8 mg/L (NO RANGE EST.)
[2019-06-25 09:36] LABS: ALB/GLOB Ratio 1.2 RATIO (0.9-2.4); AST(SGOT) 16 U/L (15-37); Alanine Aminotransfer ALT/SGPT 30 U/L (16-61); Albumin, Serum 3.8 g/dL (3.2-5.0); Alkaline Phosphatase 63 U/L (45-117); Anion Gap 4 (5-15); BUN 18 mg/dL (7-18); BUN/Creat Ratio 15.3 RATIO (10-20); Chloride 109 mmol/L (98-107); Cholesterol 183 mg/dL (200); Creatinine, Serum 1.18 mg/dL (0.70-1.30); EST Glomerular Filtration Rate 64 mL/min (>60); Est Glom Filt Rate - Afr Amer 78 mL/min (>60); Globulin 3.1 g/dL (2.2-4.2); Glucose 119 mg/dL (74-106); High Density Lipoprotein 50 mg/dL; Potassium 4.1 mmol/L (3.5-5.1); Protein, Total 6.9 g/dL (6.4-8.2); Sodium Level 143 mmol/L (136-145); Thyroid Stim Hormone (TSH) 1.18 uIU/mL (0.358-3.74); Triglycerides 76 mg/dL; Very Low Density Lipoprotein 15 mg/dL (5-40)
[2019-06-25 11:00] LABS: Hemoglobin A1c 6.1 % (4.2-6.3)
== END ==
PROVIDERS: PCP Family Medicine; Referring Provider Family Medicine; Visit Provider Family Medicine
DX: I10 Essential (primary) hypertension (principal); E78.00 Pure hypercholesterolemia, unspecified; R73.02 Impaired glucose tolerance (oral)
CPT/HCPCS: 80053; 80061; 82043; 82570; 83036; 84443; 85025

== ENCOUNTER → 2019-06-30 12:35 | Outpatient (CLI) | payer MEDICARE, SELFPAY ==
--- NOTE | 2019-06-30 | LES_PTH ---
PATIENT: VENESSA GIBBS LOC: [facility] U#:[id number] AGE/SX: 80/M ROOM: RE06/30/[address]: Dr. Raphael Doyle MD : 1945 BED: DIS: SPEC #: [id number] RECD: 06/30/19 11:50 STATUS: LEON FRANCIE #: [id number] ADDIE: 06/30/19 00:[address]: Raphael Doyle DEPT: SURGICAL PATHOLOGY RECD BY: Chiki Vick ENTERED: 06/30/19 13:40 SP TYPE: Lesion OTHR DR: Dr. Compa Urbano MD Tissues: Skin of forehead Procedures: Surgery Specimen Level IV HEADER OPERATION: Left forehead biopsy PRE-OP DIAGNOSIS: Left forehead mass TISSUE SUBMITTED: Left forehead tissue MICROSCOPIC DIAGNOSIS Left forehead mass, core biopsy: Mature adipose tissue, consistent with lipoma. See comment. JOSEPH:destiny 1/31/20 COMMENT Correlation with clinical findings and appropriate follow up are necessary. MICROSCOPIC DESCRIPTION Slides are reviewed. GROSS DESCRIPTION Received in fixative is one container labeled with the patient's name and designated forehead tissue. The specimen consists of multiple elongated fragments of flores-yellow fibroadipose tissue that in aggregate measure 1.5 x 0.3 x 0.1 cm. The entire specimen is submitted in one cassette. / SJ:rg 06/30/19 TC:1 CPT: 72974
[2019-06-30 10:58] VITALS: BMI 24.6
== END ==
PROVIDERS: PCP Family Medicine; Referring Provider Surgery; Visit Provider Surgery
DX: R22.0 Localized swelling, mass and lump, head (principal)
CPT/HCPCS: 88305

== ENCOUNTER → 2019-10-22 07:00 | Outpatient (CLI) | payer MEDICARE, SELFPAY ==
[2019-06-30 10:58] VITALS: BMI 24.6
[2019-10-22 07:16] LABS: Absolute Lymphocyte Count 1.55 X10^3/uL (0.83-4.51); Absolute Neutrophil Count 3.2 X10^3/uL (2.0-7.7); Basophil# 0.03 X10^3/uL; Basophil% 0.5 % (0-1); Eosinophil# 0.24 X10^3/uL; Eosinophils% 4.3 % (0-5); Hemoglobin 15.3 g/dL (13.0-16.5); Lymphocyte # 1.55 X10^3/ul (4.0); Lymphocyte % 27.6 % (19-41); Mean Corp Hgb Conc 32.6 g/dL (32-36); Mean Corpuscular Hgb 29.3 pg (27.0-32.0); Mean Platelet Vol. 10.6 fl (6.2-12.0); Monocyte# 0.55 X10^3/uL; Monocyte% 9.8 % (0-10); NRBC Flagged by Analyzer 0 % (0-5); Neutrophil # 3.22 X10^3/uL (2.7-7.7); Neutrophil % 57.4 % (47-70); Platelet Count 189 K/mm3 (150-450); RBC Distribution Width CV 13.4 % (11.6-14.6); Red Blood Count 5.22 M/mm3 (4.6-6.2); White Blood Count 5.6 K/mm3 (4.4-11.0)
[2019-10-22 07:45] LABS: Hemoglobin A1c 6.1 % (3.8-5.6)
[2019-10-22 08:06] LABS: ALB/GLOB Ratio 1.1 RATIO (0.9-2.4); AST(SGOT) 17 U/L (15-37); Alanine Aminotransfer ALT/SGPT 28 U/L (16-61); Albumin, Serum 3.9 g/dL (3.2-5.0); Alkaline Phosphatase 67 U/L (45-117); Anion Gap 5 (5-15); BUN 20 mg/dL (7-18); BUN/Creat Ratio 17.7 RATIO (10-20); Calcium,Total 8.9 mg/dL (8.5-10.1); Chloride 110 mmol/L (98-107); Cholesterol 198 mg/dL (200); Creatinine, Serum 1.13 mg/dL (0.70-1.30); EST Glomerular Filtration Rate 67 mL/min (>60); Est Glom Filt Rate - Afr Amer 81 mL/min (>60); Globulin 3.4 g/dL (2.2-4.2); Glucose 114 mg/dL (74-106); High Density Lipoprotein 61 mg/dL; PSA,Total- Diagnostic 6.01 ng/mL (0.0-4.0); Potassium 4.1 mmol/L (3.5-5.1); Protein, Total 7.3 g/dL (6.4-8.2); Sodium Level 144 mmol/L (136-145); Triglycerides 70 mg/dL; Very Low Density Lipoprotein 14 mg/dL (5-40)
== END ==
LOC: LAB.FUTURE 07:01 → LAB 10-25 06:24
PROVIDERS: PCP Family Medicine; Referring Provider Family Medicine; Visit Provider Family Medicine
DX: C61 Malignant neoplasm of prostate (principal); E78.00 Pure hypercholesterolemia, unspecified; I10 Essential (primary) hypertension; R73.02 Impaired glucose tolerance (oral)
CPT/HCPCS: 36415; 80053; 80061; 83036; 84153; 85025

== ENCOUNTER 2019-11-09 05:51 | Day surgery (SDC) | payer MEDICARE, SELFPAY ==
[2019-06-30 10:58] VITALS: BMI 24.6
--- NOTE | 2019-11-08 06:08 | EKG12_ITS ---
Test Reason : PRE OP Blood Pressure : / mmHG Vent. Rate : 068 BPM Atrial Rate : 068 BPM P-R Int : 150 ms QRS Dur : 106 ms QT Int : 392 ms P-R-T Axes : 040 044 059 degrees QTc Int : 416 ms Normal sinus rhythm with sinus arrhythmia Incomplete left bundle branch block Borderline ECG Confirmed by ABDIEL LANDAVERDE, GUME ([id number]), editor newspaper FABIANA ISRAEL ([id number]) on 11/08/2019 9:57:01 AM Referred By: Capo Mccullough Confirmed By:GUME MEADOWS MD
[2019-11-09] VITALS (14 sets, daily range): BP systolic 95–141; BP diastolic 49–90; PULSE 52–69; RESP 14–16; TEMP 36.6–37.7; O2SAT 89–100; BMI 22.6; BMI 23.8
[2019-11-09] MEDS: Lactated Ringers 1,000 ML 100 ML IV ×5 (06:51→22:34)
--- NOTE | 2019-11-09 07:10 | PCM.HP.STD ---
History of Present Illness Date of Admission: 11/09/19 Chief Complaint: Prostate cancer The patient is a 74 year old male with prostate cancer who is elected to undergo radical prostatectomy for curative intent, plan to do bilateral nerve sparing. Past Medical History Past Medical History (Chronic Problems): Chronic Problems (Last Reviewed 06/21/19 @ 14:42 by Saima Faustin) Diabetes mellitus type 2, uncontrolled (Chronic) HTN (hypertension) (Chronic) Chronic headaches (Chronic) Medical History: Medical History (Last Reviewed 06/21/19 @ 14:42 by Saima Faustin) Mass (Acute) R22.9 Prostate cancer (Acute) C61 HTN (hypertension) (Chronic) I10 Chronic headaches (Chronic) R51 Glaucoma (Acute) H40.9 Cataracts, bilateral (Acute) H26.9 Arthritis (Acute) M19.90 Anxiety and depression (Acute) F41.9, F32.9 Seasonal allergies (Acute) J30.2 Allergies No Known Allergies Allergy (Verified 11/09/19 06:25) Home Medications: Ambulatory Orders Medication Instructions Recorded lovastatin 10 mg tablet 10 mg PO DAILY 04/28/18 lisinopril 10 mg tablet 5 mg PO QHS 06/29/18 ascorbic acid (vitamin C) 500 mg 500 mg PO DAILY 06/21/19 capsule lamotrigine 100 mg tablet 150 mg PO QHS tab 06/21/19 Desvenlafaxine Succinate [Pristiq] 50 mg PO QHS 11/02/19 Ipratropium [place] 0.06% 2 spray NASAL BID 11/02/19 [ATROVENT NASAL SPRAY (g)] Latanoprost 0.005% [Xalatan 1 drp EACH EYE QHS 11/02/19 Opthalmic] Surgical History: Surgical History (Last Reviewed 06/21/19 @ 14:42 by aSima Faustin) Hx of colonoscopy (Acute) Z98.890 History of tonsillectomy and adenoidectomy (Acute) Z98.890 Hx of bilateral inguinal hernia repair (Acute) Z98.890, Z87.19 1997 Surgical History: no surgical history Smoking Status: Never smoker Tobacco Use: Non-smoker Review of Systems Constitutional: Denies: Chills, Fever, Weight Change HEENT: Denies: Head Aches, Sinus Congestion, Sinus Drainage Cardiovascular: Denies: Chest Pain, Palpitations Respiratory: Denies: Cough, Shortness of breath at rest, Sputum production Gastrointestinal: Denies: Abdominal Pain, Nausea, Vomiting Genitourinary: Denies: Dysuria Musculoskeletal: Denies: Joint Pain, Joint Tenderness Skin: Denies: Rash, Wounds Neurological: Denies: Numbness, Tingling, Focal weakness Psychiatric: Denies: Anxiety, Depression, Homicidal Ideations, Suicidal Ideations Hematologic/ Lymphatic: Denies: Easy Bruising, Easy Bleeding VTE Information - Inpt Only VTE Present on Admission: No VTE Mechan Device Prophylaxis: SCD's - Physical Exam Vitals/I&O's: Vital Signs Temp Pulse Resp BP Pulse Ox 99.8 F H 67 16 138/90 H 97 11/09/19 06:26 11/09/19 06:26 11/09/19 06:26 11/09/19 06:26 11/09/19 06:26 Oxygen Delivery Method Room Air Weight: 61.9 kg Body Mass Index (BMI) 22.6 General: Alert, Oriented x3, Cooperative HEENT: Atraumatic, PERRLA, EOMI, Normocephalic Neck: Supple, No JVD, Negative Carotid Bruits Lungs: Clear to auscultation, Normal air movement Cardiovascular: Regular rate, No murmurs Abdomen: Bowel Sounds Present, Soft, Non Tender Extremities: No edema, Capillary Refill Less than 3 Seconds Skin: No rashes, No breakdown Musculoskeletal: No Tenderness to Palpation of Joints or Extremities Neurological: Cranial nerves II-XII grossly intact Psych/Mental Status: Normal Affect, Appropriate Laboratory Results 11/08/19 09:40: COVID-19 ([place]) Not Detected Current Medications Cefazolin Sodium 2 gm/ Sodium (Chloride) 110 mls @ 150 mls/hr IV PREOP ONE Stop: 11/09/19 07:53 Lactated Ringer's () 1,000 mls @ 100 mls/hr IV .Q10H [facility] Last Admin: 11/09/19 06:51 Dose: 100 mls/hr Documented by: Lactated Ringer's () 1,000 mls @ 100 mls/hr IV .Q10H [facility] Last Admin: 11/09/19 06:52 Dose: 100 mls/hr Documented by: Assessment/Plan All Active Problems (Last Reviewed 06/21/19 @ 14:42 by Saima Faustin) Mass (Acute) Hx of colonoscopy (Acute) History of tonsillectomy and adenoidectomy (Acute) Hx of bilateral inguinal hernia repair (Acute) Chronic fatigue and malaise (Acute) Prostate cancer (Acute) Glaucoma (Acute) Cataracts, bilateral (Acute) Arthritis (Acute) Anxiety and depression (Acute) Seasonal allergies (Acute) 74-year-old male with prostate cancer plan to proceed with radical prostatectomy and bilateral nerve sparing.
--- NOTE | 2019-11-09 07:16 | PCM.DC.URO ---
Discharge Diet: No Restrictions, Light diet - advance as tolerated, Soft diet Discharge Activity: Return to Normal Activity, May Not Drive - for 2 days[address] not [address] while taking narcotic pain medications., May Shower Return to work on:: 12/21/19 May shower in (days): 1 Weight Bearing Status: Weight bearing as tolerated Additional Activity Instructions:: Please be aware that pain medications may cause nausea. You should typically eat light foods as you take your pain medication. Pain medication may cause constipation, if this is a problem for you, please discuss with your doctor. Call your doctor if your incision/area has: Continuous Slow Oozing, Sudden Increased Bleeding, Increased Pain/ Swelling, Increased Redness, Foul Smelling Discharge, Swelling at the incision site Call your doctor if you observe: Fever of 101 or Higher, Inability to have a bowel movement, Uncontrolled pain Suture Line Care: Avoid Pulling/Pushing, Avoid Pinching/Bending Catheter: Caballero to leg bag, Caballero to large bag Drain: [place] Instructions: Radical Prostatectomy Allergies/Adverse Reactions: Allergies No Known Allergies Allergy (Verified 11/09/19 06:25) Medications to take at Discharge lovastatin 10 mg tablet 10 mg PO DAILY 04/28/18 lisinopril 10 mg tablet 5 mg PO QHS 06/29/18 ascorbic acid (vitamin C) 500 mg capsule 500 mg PO DAILY 06/21/19 lamotrigine 100 mg tablet 150 mg PO QHS tab 06/21/19 Desvenlafaxine Succinate [Pristiq] 50 mg PO QHS 11/02/19 Ipratropium [place] 0.06% [ATROVENT NASAL SPRAY] 2 spray NASAL BID 11/02/19 Latanoprost 0.005% [Xalatan Opthalmic] 1 drp EACH EYE QHS 11/02/19 Ciprofloxacin [Cipro] 500 mg PO BID #20 tab 11/09/19 Docusate Sodium [Colace] 100 mg PO BID #20 cap 11/09/19 Hydrocodone/Acetaminophen [[place] 5-325 Tablet] 1 each PO Q4H PRN PRN 5 Days #14 tablet 11/09/19 Primary Care Physician: Compa Urbano MD [Primary Care Provider] - Test Results: Test results from this visit will be discussed in further detail at your follow-up appointment, if applicable. Please Follow Up With: Capo Mccullough MD When: Call for an appointment Proposed Discharge Date: 11/10/19
[2019-11-09] MEDS: Cefazolin 2 GM in 0.9% Normal Saline 100 ML IV (07:23)
--- NOTE | 2019-11-09 07:30 | PROST_PTH ---
PATIENT: VENESSA GIBBS LOC: [facility] [place] U#:[id number] AGE/SX: 74/M ROOM: RE11/09/[address]: Dr. Capo Mccullough MD : 1945 BED: DIS: 11/10/2019 SPEC #: [id number] RECD: 11/09/19 12:16 STATUS: LEON RESara #: [id number] ADDIE: 11/09/19 07:[address]: Capo Mccullough DEPT: SURGICAL PATHOLOGY RECD BY: Donya Louis ENTERED: 11/10/19 08:24 SP TYPE: PROSTATE OTHR DR: Dr. Compa Urbano MD Tissues: A - LYMPH NODE BIOPSY B - LYMPH NODE BIOPSY C - Prostate, NOS Procedures: Surgery Specimen Level V HEADER OPERATION: Laparoscopic robotic radical prostatectomy PRE-OP DIAGNOSIS: Malignant neoplasm of prostate; elevated PSA TISSUE SUBMITTED: A - Right pelvic lymph node, B - Left pelvic lymph node, C - Prostate MICROSCOPIC DIAGNOSIS A. Right pelvic lymph nodes, regional lymphadenectomy: Two out of two lymph nodes negative for carcinoma. B. Left pelvic lymph node, regional lymphadenectomy: One out of one lymph node negative for carcinoma. C. Prostate, radical prostatectomy: Adenocarcinoma. See cancer checklist below. AM:destiny 11/11/19 COMMENT PROSTATE CANCER (RADICAL) SUMMARY: Procedure: Radical Prostatectomy Prostate Size: Weight: 29.2 gm Size: 4 x 3.5 x 3 cm Histologic type: Adenocarcinoma Histologic grade: 7 Percent of Pattern 4: 15% Percent of Pattern 5: not present Intraductal Carcinoma: Not identified Tumor Quantitation: 2.5 x 1.5 x 0.8 cm Extraprostatic Extension: focally present (right lateral; base of gland) Urinary Bladder Neck Invasion: Not identified Seminal Vesicle Invasion: Not identified Lymphovascular Invasion: Not identified Perineural Invasion: Present, multifocal Margins: Focally positive for carcinoma (right lateral; base of gland) Regional Lymph Nodes: Number of lymph nodes involved by carcinoma: 0 Total Number of Lymph Nodes Examined: 3 Treatment Effect: Unknown Additional Pathologic Findings: Focal high-grade prostatic intraepithelial neoplasia (HGPIN). PATHOLOGIC STAGE: T3a N0 Mx The above summary is in compliance with [employer] of [place] [employer] (CAP) Cancer Protocols Checklist and [place] Joint Committee on Cancer (AJCC), Staging Manual, 8th Ed. Case has been reviewed in consultation with Dr. Vera who concurs with the above diagnosis. IDC:SJ MICROSCOPIC DESCRIPTION Slides are reviewed. GROSS DESCRIPTION A - Received in fixative is one container labeled with the patient's name and designated right pelvic lymph node. The specimen consists of a piece of yellow adipose tissue measuring 3 x 2 x 0.3 cm. Two possible lymph nodes are identified measuring 0.3 and 0.5 cm in greatest dimension. The entire specimen is submitted in two cassettes. Cassette 2 contains the possible lymph node. B - Received in fixative is one container labeled with the patient's name and designated left pelvic lymph node. The specimen consists of a piece of yellow adipose tissue measuring 2.5 x 2 x 0.3 cm. One lymph node is identified measuring 1 cm in greatest dimension. The entire specimen is submitted in two cassettes as follows: 1 - one bisected lymph nodes, 2 - rest of the specimen. C - Received in fixative is one container labeled with the patient's name and designated prostate. The specimen consists of a radical prostatectomy specimen consisting of prostate and bilateral seminal vesicles and weighing 29.2 cm. The prostate measures 4 cm transversely, 3.5 cm craniocaudally and 3 cm anterior posteriorly. The right seminal vesicle measures 2.5 x 1 x 0.5 cm and right vas deferens measures 2.4 cm in length and 0.5 cm in diameter and the left seminal vesicle measures 3 x 1 x 0.5 cm and left vas deferens measures 2.4 cm in length and 0.4 cm in diameter. The prostate is inked as follows: anterior surface - yellow, posterior surface - black, right lateral surface - blue and left lateral surface - green. The bilateral seminal vesicles and vas deferens are inked as follows: posterior surface bilateral seminal vesicles and vas deferens - black, anterior surface right seminal vesicle and vas deferens - blue and anterior surface left seminal vesicle and vas deferens - green. Sections do not reveal any mass lesions. Deputy Court Clerk sections are submitted as follows: 1 - right seminal vesicle, 2??left seminal vesicle, 3 - apical margin, enface, 4 & 5 - basal portion of prostate and basal margin, enface, 6-9 - apical portion of prostate, 1013??middle portion prostate, 14-20 - basal portion prostate. More than 95% of the prostate is submitted. / JOSEPH:destiny 11/10/19 TC:0 CPT: 06678 x3
--- NOTE | 2019-11-09 10:57 | PCM.OPRPT ---
Report of Operation Date of Procedure: 11/09/19 Pre-Operative Diagnosis: Prostate cancer Post-Operative Diagnosis: The same Surgery/Procedure Performed:: Multiple procedures. Laparoscopic robotic assisted radical prostatectomy. Bilateral pelvic lymph node dissection. Suture suspension of the urethra Description of Surgical Findings:: 74-year-old male taken back to the operating room at the smooth induction of general anesthesia he was placed supine on the table and then in dorsolithotomy position and the abdomen shaved prepped and draped in usual sterile fashion, Sher catheter was placed into the bladder, we then placed our trochars into the abdomen after we establish pneumoperitoneum we dissected the sigmoid colon off the lateral wall and then retracted out of the deep pelvis I then opened up the peritoneum over the vas deferens and seminal vesicles dissected out the vas deferens and seminal vesicles free on both the right and left side then pulled out of the Rusty drop the bladder created the space of Retzius with the bladder on traction with the fourth arm I then went to the pelvic lymph nodes on the right side identified the lymph nodes and identified the note of [place] the obturator nerve the lateral pelvic wall the iliac vein all the lymph node tissue was dissected out from the space using clips and electrocautery. I went then to the other side and did the same exact meticulous dissection all the tissue that was removed looks benign no enlarged lymph nodes all small lymph nodes. I then went to the prostate we cleaned off the fat of the prostate incised endopelvic fascia dissected dissected out the apex of the prostate placed a stitch in the dorsal vein complex, and then pulled back between the brought bladder and prostate dissected between the bladder and prostate and bladder neck sparing fashion down to the seminal vesicles then on the right side we incised endopelvic fascia we released the neurovascular bundles on the right side all the way to the apex came back to the pedicle transected to the pedicle and the release the neurovascular bundles hugging underneath the prostate all the way to the apex went to the left side release the neurovascular bundles the left side all the way up to the apex and the left side and then came back to the pedicle took the pedicle with clips and release more the neurovascular bundle on the left side all the way to the apex then transected to the dorsal vein complex lower the pneumoperitoneum and there is no bleeding from the dorsal vein complex, transected through the urethra and the prostate was placed in Endo Catch bag we then suspended the urethra to help with postoperative incontinence. An anastomosis was performed between the bladder neck and the urethra over catheter. Once the anastomosis was completed this was a watertight anastomosis with no leakage. We then put in a knik tip 18 [place] catheter into the bladder no drain was left we closed all the ports we extracted the prostate through the air seal port and the patient anesthetic was reversed taken back to PACU in good condition minimal blood loss all needles and scant sponges were accounted for good nerve sparing on both sides in the bladder neck anastomosis went perfectly. Type of Anesthesia:: General Drains: sher - Admit VTE Documentation VTE Present on Admission: No VTE Mechan Device Prophylaxis: SCD's
[2019-11-09] MEDS: Bupivacaine Mpf 0.5% 30 ML VIAL (11:00)
[2019-11-09] MEDS: Ketorolac 15 MG/ML Vial IV ×3 (11:44→21:22)
[2019-11-09] MEDS: Ipratropium Bromide 0.06% NASAL SPRAY 2 SPRAY NASAL (13:22)
[2019-11-09] MEDS: Ciprofloxacin 500 MG Tablet PO ×2 (13:24→21:02)
--- NOTE | 2019-11-09 14:13 | NURSING ---
pt assisted up to chair for full liquid tray
--- NOTE | 2019-11-09 14:14 | NURSING ---
spoken to over the phone and given update
--- NOTE | 2019-11-09 14:15 | NURSING ---
umbilical incision intact with steristrips, small amount of bleeding noted, sterile 4x4 placed over steristrips
[2019-11-09] MEDS: 0.9% Saline Lock 10 ML Syringe IV (21:23)
--- NOTE | 2019-11-09 22:04 | NURSING ---
When this nurse went into patient's room to attend vitals and give QHS medication, pt informed this nurse that he had already taken his home medications. Asked if he brought his pill bottles in with him he informed this nurse that he had brought individual pills in and a bag. He stated he did not have any more home medications with him with the exception of his nasal spray and eye drops. Pt able to list off which medications he had taken. These were marked off accordingly on the JUL. Charge nurse notified.
[2019-11-10 01:29] VITALS: BP 90/45; PULSE 62; RESP 18; TEMP 37.2; O2SAT 96
[2019-11-10] MEDS: Ketorolac 15 MG/ML Vial IV (03:36)
[2019-11-10] MEDS: 0.9% Saline Lock 10 ML Syringe IV (03:36)
[2019-11-10 03:44] VITALS: BP 92/52; PULSE 60; RESP 16; TEMP 36.8; O2SAT 98
[2019-11-10] MEDS: Lactated Ringers 1,000 ML 100 ML IV (04:49)
[2019-11-10 06:27] LABS: Hematocrit 40.8 % (40-54); Hemoglobin 12.7 g/dL (13.0-16.5); Mean Corp Hgb Conc 31.1 g/dL (32-36); Mean Corpuscular Volume 93.2 fL (80-94); Mean Platelet Vol. 10.7 fl (6.2-12.0); Platelet Count 172 K/mm3 (150-450); RBC Distribution Width CV 13.6 % (11.6-14.6); RBC Distribution Width SD 46.5 fl (35.1-43.9); Red Blood Count 4.38 M/mm3 (4.6-6.2)
[2019-11-10 06:35] VITALS: BP 101/60; PULSE 68; RESP 16; TEMP 36.8; O2SAT 97
[2019-11-10 06:51] LABS: Anion Gap 5 (5-15); BUN 18 mg/dL (7-18); BUN/Creat Ratio 14.3 RATIO (10-20); Calcium,Total 8.5 mg/dL (8.5-10.1); Chloride 106 mmol/L (98-107); Creatinine, Serum 1.26 mg/dL (0.70-1.30); EST Glomerular Filtration Rate 59 mL/min (>60); Est Glom Filt Rate - Afr Amer 72 mL/min (>60); Estimated Creatinine Clearance 44.74 ml/min; Glucose 113 mg/dL (74-106); Potassium 4.3 mmol/L (3.5-5.1); Sodium Level 144 mmol/L (136-145)
--- NOTE | 2019-11-10 07:07 | DS.PCM_ITS ---
Discharge Date and Diagnosis Date of Admission: 11/09/19 Date of Discharge: 11/10/19 - Secondary Discharge Diagnosis Chronic Problems: Chronic Problems (Last Reviewed 06/21/19 @ 14:42 by Saima Faustin) Diabetes mellitus type 2, uncontrolled (Chronic) HTN (hypertension) (Chronic) Chronic headaches (Chronic) Hospital Course and Treatment Operations: - - Robotic radical prostatectomy Procedures: None Summary of Care Provided: The patient is a 74 year old male status post radical prostatectomy, home with a catheter today. - Physical Exam Vitals/I&O's: Vital Signs Temp Pulse Resp BP Pulse Ox 98.2 F 68 16 101/60 97 11/10/19 06:35 11/10/19 06:35 11/10/19 06:35 11/10/19 06:35 11/10/19 06:35 Oxygen Flow Rate (L/min) 1 Oxygen Delivery Method Nasal Cannula Weight: 64.8 kg Body Mass Index (BMI) 23.8 Intake and Output for Last 24 Hours 11/08/19 11/09/19 11/10/19 23:59 23:59 23:59 Intake Total 3416.67 / 4256.67 1865.00 / 1865.00 Output Total 450 / 850 1300 / 1300 Balance 2966.67 / 3406.67 565.00 / 565.00 General: Alert, Oriented x3, Cooperative HEENT: Atraumatic, PERRLA, EOMI, Normocephalic Neck: Supple, No JVD, Negative Carotid Bruits Lungs: Clear to auscultation, Normal air movement Cardiovascular: Regular rate, No murmurs Abdomen: Bowel Sounds Present, Soft, Non Tender Extremities: No edema, Capillary Refill Less than 3 Seconds Skin: No rashes, No breakdown Musculoskeletal: No Tenderness to Palpation of Joints or Extremities Neurological: Cranial nerves II-XII grossly intact Psych/Mental Status: Normal Affect, Appropriate Laboratory Results 11/10/19 06:00: WBC 7.0, RBC 4.38 L, Hgb 12.7 L, Hct 40.8, MCV 93.2, MCH 29.0, MCHC 31.1 L, RDW Std Deviation 46.5 H, RDW Coeff of Sherwin 13.6, Plt Count 172, MPV 10.7 11/10/19 06:00: Sodium 144, Potassium 4.3, Chloride 106, Carbon Dioxide 33.0 H, Anion Gap 5, BUN 18, Creatinine 1.26, Estim Creat Clear Calc 44.74, Est GFR (MDRD) Af Amer 72, Est GFR (MDRD) Non-Af 59 L, BUN/Creatinine Ratio 14.3, Glucose 113 H, Calcium 8.5 Current Medications Hydrocodone Bitart/Acetaminophen ([place] 5mg-325mg) 1 - 2 tablet PO Q6H PRN PRN PRN Reason: Pain Score 1-5/10 Atorvastatin Calcium (Lipitor) 5 mg PO QHS [facility] Last Admin: 11/09/19 21:01 Dose: Not Given Documented by: Belladonna Alkaloids/Opium (B & O) 60 mg RECTAL Q6H PRN PRN PRN Reason: Spasm Ciprofloxacin HCl (Cipro) 500 mg PO BID [facility] Last Admin: 11/09/19 21:02 Dose: 500 mg Documented by: Lactated Ringer's () 1,000 mls @ 100 mls/hr IV .Q10H [facility] Last Admin: 11/10/19 04:49 Dose: 100 mls/hr Documented by: Sodium Chloride () 250 mls @ 15 mls/hr IV .[id number] PRN PRN Reason: Saline Flush Sodium Chloride () 250 mls @ 15 mls/hr IV .[id number] PRN PRN Reason: Additional IVPB Infusion Ipratropium [place] (Atrovent Nasal [place] (G)) 2 spray NASAL BID [facility] Last Admin: 11/09/19 20:59 Dose: Not Given Documented by: Ketorolac Tromethamine (Toradol (Bkc)) 15 mg IV Q6H [facility] Stop: 11/10/19 16:01 Last Admin: 11/10/19 03:36 Dose: 15 mg Documented by: Lamotrigine (Lamictal) 150 mg PO QHS [facility] Last Admin: 11/09/19 20:59 Dose: Not Given Documented by: Latanoprost (Xalatan Opthalmic) 1 drop EACH EYE QHS [facility] Last Admin: 11/09/19 21:01 Dose: Not Given Documented by: Lisinopril (Zestril) 5 mg PO QHS [facility] Last Admin: 11/09/19 21:01 Dose: Not Given Documented by: Metoclopramide HCl (Reglan) 10 mg IV Q8H PRN PRN PRN Reason: Nausea/vomiting Morphine Sulfate () 1 mg IV Q4H PRN PRN PRN Reason: Pain Score 6-10/10 Ondansetron HCl (Zofran) 4 mg IV Q8H PRN PRN Reason: Nausea Sodium Chloride () 10 - 40 ml IV UD PRN PRN Reason: SALINE FLUSH Last Admin: 11/10/19 03:36 Dose: 10 ml Documented by: Tolterodine Tartrate (Detrol La) 4 mg PO DAILY PRN PRN PRN Reason: Spasms Venlafaxine HCl (Effexor Xr) 37.5 mg PO HS [facility] Last Admin: 11/09/19 21:00 Dose: Not Given Documented by: Discharge Diet: No Restrictions, Light diet - advance as tolerated, Soft diet Discharge Activity: Return to Normal Activity, May Not Drive - for 2 days., May not drive while taking narcotic pain medications., May Shower Return to work on:: 12/21/19 May shower in (days): 1 Weight Bearing Status: Weight bearing as tolerated Additional Activity Instructions:: Please be aware that pain medications may cause nausea. You should typically eat light foods as you take your pain medication. Pain medication may cause constipation, if this is a problem for you, please discuss with your doctor. Call your doctor if your incision/area has: Continuous Slow Oozing, Sudden Increased Bleeding, Increased Pain/ Swelling, Increased Redness, Foul Smelling Discharge, Swelling at the incision site Call your doctor if you observe: Fever of 101 or Higher, Inability to have a bowel movement, Uncontrolled pain Suture Line Care: Avoid Pulling/Pushing, Avoid Pinching/Bending Catheter: Caballero to leg bag, Caballero to large bag Drain: Sebastian Home Medications: Medications to take at Discharge lovastatin 10 mg tablet 10 mg PO DAILY 04/28/18 lisinopril 10 mg tablet 5 mg PO QHS 06/29/18 ascorbic acid (vitamin C) 500 mg capsule 500 mg PO DAILY 06/21/19 lamotrigine 100 mg tablet 150 mg PO QHS tab 06/21/19 Desvenlafaxine Succinate [Pristiq] 50 mg PO QHS 11/02/19 Ipratropium [place] 0.06% [ATROVENT NASAL SPRAY] 2 spray NASAL BID 11/02/19 Latanoprost 0.005% [Xalatan Opthalmic] 1 drp EACH EYE QHS 11/02/19 Ciprofloxacin [Cipro] 500 mg PO BID #20 tab 11/09/19 Docusate Sodium [Colace] 100 mg PO BID #20 cap 11/09/19 Hydrocodone/Acetaminophen [[place] 5-325 Tablet] 1 ea PO Q4H PRN PRN 5 Days #14 tab 11/09/19 Following Prescrptions Were Given to Patient: Ciprofloxacin [Cipro] 500 mg PO BID #20 tab Transmission Status: Received by [address] Docusate Sodium [Colace] 100 mg PO BID #20 cap Transmission Status: Received by [address] Hydrocodone/Acetaminophen [[place] 5-325 Tablet] 1 ea PO Q4H PRN PRN 5 Days #14 tab PRN Reason: Pain Score 1-1010 Transmission Status: Received by [address] Primary Care Physician: Compa Urbano MD [Primary Care Provider] - Please Follow Up With: Capo Mccullough MD When: Call for an appointment Patient Instructions: Radical Prostatectomy Medical Necessity - Tobacco Use Smoking Status: Never smoker Tobacco Use: Non-smoker Meaningful Use Info Meaningful Use Diagnoses (Choose all that apply): None applicable
[2019-11-10 09:00] VITALS: BP 117/68; PULSE 60; RESP 18; TEMP 36.7; O2SAT 100
[2019-11-10] MEDS: Ipratropium Bromide 0.06% NASAL SPRAY 2 SPRAY NASAL (09:05)
[2019-11-10] MEDS: Ciprofloxacin 500 MG Tablet PO (09:05)
--- NOTE | 2019-11-10 10:26 | NURSING ---
0830-sher catheter homegoing care taught to pt with hands on demonstration and handouts as well. shown how to change to leg bag and prevention of uti's. no questions voiced. dc instructions given to pt with no questions as well. called for dc.
== END 2019-11-10 09:14 | disposition home or self-care (01) ==
LOC: SDC 05:51 → AC 05:52 → MS3 08:29
PROVIDERS: Anesthesiology; PCP Family Medicine; Referring Provider Urology; Visit Provider Urology
PROC: 0VT04ZZ Resection of Prostate, Percutaneous Endoscopic Approach (ICD-10-PCS; CPT 55866; principal; 2019-11-09 07:10)
DX: C61 Malignant neoplasm of prostate (principal); R97.20 Elevated prostate specific antigen [PSA]; Z11.59 Encounter for screening for other viral diseases; N40.3 Nodular prostate with lower urinary tract symptoms; N39.41 Urge incontinence; R35.0 Frequency of micturition; R35.1 Nocturia; R33.8 Other retention of urine; N32.81 Overactive bladder; E11.65 Type 2 diabetes mellitus with hyperglycemia; I10 Essential (primary) hypertension; E78.5 Hyperlipidemia, unspecified; H40.9 Unspecified glaucoma; M19.90 Unspecified osteoarthritis, unspecified site; F32.9 Major depressive disorder, single episode, unspecified; F41.9 Anxiety disorder, unspecified; Z79.82 Long term (current) use of aspirin; Z79.899 Other long term (current) drug therapy
CPT/HCPCS: 00865; 38571; 51990; 55866; S2900; 80048; 85027; 87635; 88305; 88307; 88309; 93005; 94762; 99251; G2023; J7120; A4216; G0463; J2405; U0003

== ENCOUNTER → 2019-12-15 15:21 | Outpatient (CLI) | payer MEDICARE, SELFPAY ==
[2019-11-09 12:59] VITALS: BMI 23.8
[2019-12-15 16:24] LABS: PSA,Total- Diagnostic 0.03 ng/mL (0.0-4.0)
== END ==
PROVIDERS: PCP Family Medicine; Referring Provider Urology; Visit Provider Urology
DX: R97.20 Elevated prostate specific antigen [PSA] (principal)
CPT/HCPCS: 36415; 84153

== ENCOUNTER → 2020-02-18 07:30 | Outpatient (CLI) | payer MEDICARE, SELFPAY ==
[2019-11-09 12:59] VITALS: BMI 23.8
--- NOTE | 2020-02-18 07:42 | MRI_ITS ---
STUDY: MRI BRAIN WITH AND WITHOUT CONTRAST REASON FOR EXAM: Male, 74 years old. worsening headaches with dysdiadochokinesia TECHNIQUE: Standardized multiplanar fat and water weighted pulse sequences were obtained. IV Dotarem 13ml was administered for the contrast portion of the examination. COMPARISON: CT 04/20/2008 FINDINGS: Normal size of the ventricles and extra-axial spaces for the patient''s age. Normal white matter tracts of the supratentorial brain. There is no evidence for recent intracranial ischemia or other cause of cytotoxic edema on diffusion weighted imaging (DWI). Normal T2* images of the brain without demonstrated susceptibility artifact. There is no demonstrated hemosiderin stain. Normal bilateral basal ganglia. Normal thalami. There is no extra-axial fluid accumulation. Normal flow voids within the major intracranial circulation suggesting patency by spin echo criteria. Normal venous enhancement. There is no enhancing intra-axial or extra-axial abnormality. Normal sella turcica, pituitary gland, infundibular stalk, optic chiasm and hypothalamus. Normal tectal plate and pineal gland. Normal midbrain, gallo and medulla. Normal cerebellum. Normal basal cisterns. Normal bilateral temporal bones. Normal bilateral internal auditory canals. No demonstrated orbital abnormality, within the constraints of a routine brain study. Normal visualized paranasal sinuses. Normal calvarium and skull base. Normal visualized soft tissue structures. Normal visualized upper cervical spine. MRI/Brain W/WO Contrast IMPRESSION: Normal unenhanced and enhanced MRI of the brain. Electronically Signed: Aung Abbott MD at 9:57 EDT Tel , Service support ,
[2020-02-18 10:21] LABS: CREATININE FINGERSTICK 0.7 mg/dL (0.70-1.30); EGFR FINGERSTICK > 60.0000 mL/min (>60)
== END ==
PROVIDERS: PCP Family Medicine; Referring Provider Family Medicine; Visit Provider Family Medicine
DX: R27.8 Other lack of coordination (principal)
CPT/HCPCS: 70553; A9575

== ENCOUNTER → 2020-03-30 10:49 | Outpatient (CLI) | payer MEDICARE, SELFPAY ==
[2019-11-09 12:59] VITALS: BMI 23.8
[2020-03-30 12:05] LABS: PSA,Total- Diagnostic < 0.01 ng/mL (0.0-4.0)
== END ==
PROVIDERS: PCP Family Medicine; Visit Provider Urology
DX: C61 Malignant neoplasm of prostate (principal)
CPT/HCPCS: 36415; 84153

== ENCOUNTER → 2020-04-07 06:52 | Outpatient (CLI) | payer MEDICARE, SELFPAY ==
[2019-11-09 12:59] VITALS: BMI 23.8
[2020-04-07 07:39] LABS: Absolute Lymphocyte Count 1.24 X10^3/uL (0.83-4.51); Absolute Neutrophil Count 3.1 X10^3/uL (2.0-7.7); Basophil# 0.06 X10^3/uL; Basophil% 1.2 % (0-1); Eosinophil# 0.21 X10^3/uL; Eosinophils% 4.1 % (0-5); Hemoglobin 14.9 g/dL (13.0-16.5); Lymphocyte # 1.24 X10^3/ul (4.0); Lymphocyte % 23.9 % (19-41); Mean Corp Hgb Conc 31.7 g/dL (32-36); Mean Corpuscular Hgb 28.3 pg (27.0-32.0); Mean Corpuscular Volume 89.4 fL (80-94); Mean Platelet Vol. 10.2 fl (6.2-12.0); Monocyte# 0.52 X10^3/uL; NRBC Flagged by Analyzer 0 % (0-5); Neutrophil # 3.13 X10^3/uL (2.7-7.7); Neutrophil % 60.4 % (47-70); Platelet Count 202 K/mm3 (150-450); RBC Distribution Width CV 13.7 % (11.6-14.6); RBC Distribution Width SD 45.1 fl (35.1-43.9); Red Blood Count 5.26 M/mm3 (4.6-6.2); White Blood Count 5.2 K/mm3 (4.4-11.0)
[2020-04-07 07:56] LABS: ALB/GLOB Ratio 1.1 RATIO (0.9-2.4); AST(SGOT) 12 U/L (15-37); Alanine Aminotransfer ALT/SGPT 23 U/L (16-61); Albumin, Serum 3.6 g/dL (3.2-5.0); Alkaline Phosphatase 62 U/L (45-117); Anion Gap 0 (5-15); BUN 15 mg/dL (7-18); BUN/Creat Ratio 13.6 RATIO (10-20); Chloride 108 mmol/L (98-107); Cholesterol 188 mg/dL (200); EST Glomerular Filtration Rate 69 mL/min (>60); Est Glom Filt Rate - Afr Amer 84 mL/min (>60); Globulin 3.2 g/dL (2.2-4.2); Glucose 120 mg/dL (74-106); High Density Lipoprotein 62 mg/dL; Potassium 4.3 mmol/L (3.5-5.1); Protein, Total 6.8 g/dL (6.4-8.2); Sodium Level 141 mmol/L (136-145); Triglycerides 98 mg/dL; Very Low Density Lipoprotein 20 mg/dL (5-40)
[2020-04-07 08:39] LABS: Hemoglobin A1c 6.3 % (3.8-5.6)
== END ==
PROVIDERS: PCP Family Medicine; Visit Provider Family Medicine
DX: I10 Essential (primary) hypertension (principal); R73.02 Impaired glucose tolerance (oral); E78.00 Pure hypercholesterolemia, unspecified
CPT/HCPCS: 36415; 80053; 80061; 83036; 85025

== ENCOUNTER → 2020-04-11 09:35 | Outpatient (CLI) | payer MEDICARE, SELFPAY ==
[2019-11-09 12:59] VITALS: BMI 23.8
[2020-04-11 10:36] LABS: Vitamin B12 704 pg/mL (211-911)
[2020-04-11 10:44] LABS: Thyroid Stim Hormone (TSH) 1.01 uIU/mL (0.358-3.74)
== END ==
PROVIDERS: PCP Family Medicine; Referring Provider Family Medicine; Visit Provider Family Medicine
DX: R53.83 Other fatigue (principal)
CPT/HCPCS: 36415; 82607; 84443

== ENCOUNTER → 2020-08-25 07:01 | Outpatient (CLI) | payer MEDICARE, SELFPAY ==
[2019-11-09 12:59] VITALS: BMI 23.8
[2020-08-25 07:11] LABS: Bacteria 0 SEEN /hpf (None Seen); Mucous, Urine 0 SEEN /hpf (<or=2+); Red Blood Cells-Urine 0 SEEN /hpf (0-5); Squamous Epithelial Cells - UA 0 SEEN /hpf (0-5); White Blood Cells 0 SEEN /hpf (0-5)
[2020-08-25 08:16] LABS: Absolute Lymphocyte Count 1.28 X10^3/uL (0.83-4.51); Absolute Neutrophil Count 2.4 X10^3/uL (2.0-7.7); Basophil# 0.05 X10^3/uL; Basophil% 1.1 % (0-1); Eosinophil# 0.22 X10^3/uL; Eosinophils% 4.9 % (0-5); Hematocrit 46.4 % (40-54); Hemoglobin 14.8 g/dL (13.0-16.5); Lymphocyte # 1.28 X10^3/ul (4.0); Lymphocyte % 28.8 % (19-41); Mean Corp Hgb Conc 31.9 g/dL (32-36); Mean Corpuscular Hgb 28.5 pg (27.0-32.0); Mean Corpuscular Volume 89.4 fL (80-94); Mean Platelet Vol. 11.2 fl (6.2-12.0); Monocyte# 0.48 X10^3/uL; Monocyte% 10.8 % (0-10); NRBC Flagged by Analyzer 0 % (0-5); Neutrophil # 2.41 X10^3/uL (2.7-7.7); Neutrophil % 54.2 % (47-70); Platelet Count 185 K/mm3 (150-450); RBC Distribution Width CV 13.2 % (11.6-14.6); RBC Distribution Width SD 43.6 fl (35.1-43.9); Red Blood Count 5.19 M/mm3 (4.6-6.2); White Blood Count 4.5 K/mm3 (4.4-11.0)
[2020-08-25 08:21] LABS: Color, Urine Yellow (Yellow); Glucose, Dipstick Normal (Normal); Ketone-Dipstick Negative (Negative); Leukocyte Esterase-Dipstick Negative /ul (Negative); Nitrite-Dipstick Negative (Negative); Occult Blood-Urine 10 /ul (Negative); Protein-Dipstick Negative (Negative); Specific Gravity, Urine 1.015 (1.002-1.030); Urine Bilirubin Dipstick Negative (Negative); Urine Clarity Clear (Clear); Urine Urobilinogen Normal (Normal)
[2020-08-25 08:35] LABS: Hemoglobin A1c 6.1 % (3.8-5.6)
[2020-08-25 08:57] LABS: ALB/GLOB Ratio 1.2 RATIO (0.9-2.4); AST(SGOT) 14 U/L (15-37); Alanine Aminotransfer ALT/SGPT 24 U/L (16-61); Albumin, Serum 3.7 g/dL (3.2-5.0); Alkaline Phosphatase 64 U/L (45-117); Anion Gap 2 (5-15); BUN 19 mg/dL (7-18); BUN/Creat Ratio 17.4 RATIO (10-20); Calcium,Total 8.7 mg/dL (8.5-10.1); Chloride 107 mmol/L (98-107); Cholesterol 187 mg/dL (200); Creatinine, Serum 1.09 mg/dL (0.70-1.30); EST Glomerular Filtration Rate 70 mL/min (>60); Est Glom Filt Rate - Afr Amer 85 mL/min (>60); Glucose 114 mg/dL (74-106); High Density Lipoprotein 54 mg/dL; Potassium 3.9 mmol/L (3.5-5.1); Protein, Total 6.7 g/dL (6.4-8.2); Sodium Level 142 mmol/L (136-145); Triglycerides 78 mg/dL; Very Low Density Lipoprotein 16 mg/dL (5-40)
== END ==
PROVIDERS: PCP Family Medicine; Visit Provider Family Medicine
DX: I10 Essential (primary) hypertension (principal); E78.00 Pure hypercholesterolemia, unspecified; R73.02 Impaired glucose tolerance (oral)
CPT/HCPCS: 36415; 80053; 80061; 81001; 83036; 85025

== ENCOUNTER → 2020-09-19 16:18 | Outpatient (CLI) | payer MEDICARE, SELFPAY ==
[2019-11-09 12:59] VITALS: BMI 23.8
[2020-09-19 17:56] LABS: Vitamin D,25 Hydroxy 40.1 ng/mL
[2020-09-19 18:01] LABS: Thyroid Stim Hormone (TSH) 1.66 uIU/mL (0.358-3.74)
== END ==
PROVIDERS: PCP Family Medicine; Visit Provider Family Medicine
DX: R53.83 Other fatigue (principal)
CPT/HCPCS: 36415; 82306; 84402; 84403; 84443

== ENCOUNTER → 2020-09-28 10:50 | Outpatient (CLI) | payer MEDICARE, SELFPAY ==
[2019-11-09 12:59] VITALS: BMI 23.8
[2020-09-28 11:54] LABS: PSA,Total- Diagnostic < 0.01 ng/mL (0.0-4.0)
== END ==
PROVIDERS: PCP Family Medicine; Referring Provider Urology; Visit Provider Urology
DX: C61 Malignant neoplasm of prostate (principal)
CPT/HCPCS: 36415; 84153

== ENCOUNTER → 2020-11-05 12:22 | Outpatient (CLI) | payer MEDICARE, SELFPAY ==
[2019-11-09 12:59] VITALS: BMI 23.8
== END ==
PROVIDERS: PCP Family Medicine; Visit Provider Internal Medicine Pulmonary Disease
DX: Z45.89 Encounter for adjustment and management of other implanted devices (principal)

== ENCOUNTER → 2020-12-01 06:54 | Outpatient (CLI) | payer MEDICARE, SELFPAY ==
[2019-11-09 12:59] VITALS: BMI 23.8
[2020-12-01 07:30] LABS: Absolute Lymphocyte Count 0.93 X10^3/uL (0.83-4.51); Absolute Neutrophil Count 2.8 X10^3/uL (2.0-7.7); Basophil# 0.03 X10^3/uL; Basophil% 0.7 % (0-1); Eosinophil# 0.35 X10^3/uL; Eosinophils% 7.6 % (0-5); Hematocrit 43.6 % (40-54); Hemoglobin 13.9 g/dL (13.0-16.5); Lymphocyte # 0.93 X10^3/ul (0.83-4.51); Lymphocyte % 20.2 % (19-41); Mean Corp Hgb Conc 31.9 g/dL (32-36); Mean Corpuscular Hgb 28.5 pg (27.0-32.0); Mean Corpuscular Volume 89.3 fL (80-94); Mean Platelet Vol. 10.2 fl (6.2-12.0); Monocyte# 0.51 X10^3/uL; Monocyte% 11.1 % (0-10); NRBC Flagged by Analyzer 0 % (0-5); Neutrophil # 2.78 X10^3/uL (2.7-7.7); Neutrophil % 60.2 % (47-70); Platelet Count 198 K/mm3 (150-450); RBC Distribution Width CV 13.9 % (11.6-14.6); Red Blood Count 4.88 M/mm3 (4.6-6.2); White Blood Count 4.6 K/mm3 (4.4-11.0)
[2020-12-01 08:21] LABS: ALB/GLOB Ratio 1.1 RATIO (0.9-2.4); AST(SGOT) 15 U/L (15-37); Alanine Aminotransfer ALT/SGPT 29 U/L (16-61); Albumin, Serum 3.6 g/dL (3.2-5.0); Alkaline Phosphatase 79 U/L (45-117); Anion Gap 5 (5-15); BUN 18 mg/dL (7-18); Calcium,Total 8.8 mg/dL (8.5-10.1); Chloride 106 mmol/L (98-107); Cholesterol 163 mg/dL (200); Creatinine, Serum 1.06 mg/dL (0.70-1.30); EST Glomerular Filtration Rate 72 mL/min (>60); Est Glom Filt Rate - Afr Amer 87 mL/min (>60); Globulin 3.2 g/dL (2.2-4.2); Glucose 109 mg/dL (74-106); High Density Lipoprotein 55 mg/dL; Protein, Total 6.8 g/dL (6.4-8.2); Sodium Level 142 mmol/L (136-145); Triglycerides 71 mg/dL; Very Low Density Lipoprotein 14 mg/dL (5-40)
== END ==
PROVIDERS: PCP Family Medicine; Referring Provider Family Medicine; Visit Provider Family Medicine
DX: I10 Essential (primary) hypertension (principal); E78.00 Pure hypercholesterolemia, unspecified; R73.02 Impaired glucose tolerance (oral)
CPT/HCPCS: 80053; 80061; 83036; 85025

== ENCOUNTER → 2021-03-08 11:54 | Outpatient (CLI) | payer MEDICARE, SELFPAY ==
[2021-03-08 15:35] LABS: T4 Free Direct 0.71 ng/dL (0.76-1.46); Thyroid Stim Hormone (TSH) 0.99 uIU/mL (0.358-3.74)
[2021-03-14 19:16] LABS: Anti-Thyroglobulin AB < 1.0 IU/mL (0.0-0.9); Thyroglobulin, Serum Qt. 9.9 ng/mL (1.4-29.2); Thyroid Peroxidase AB 8 IU/mL (0-34)
== END ==
PROVIDERS: PCP Family Medicine; Referring Provider Family Medicine; Visit Provider Family Medicine
DX: E03.8 Other specified hypothyroidism (principal); R68.89 Other general symptoms and signs
CPT/HCPCS: 36415; 84432; 84439; 84443; 86376; 86800

== ENCOUNTER 2021-06-24 06:11 | Outpatient (CLI) | payer MEDICARE, SELFPAY ==
--- NOTE | 2021-06-24 18:07 | STRESSREP_ITS ---
Stress Test Report Exercise myocardial perfusion stress test. 76-year-old man with a history of chest pain pain Stress protocol: Resting KG demonstrates sinus bradycardia with a rate of 53 bpm normal intervals are noted resting blood pressure is 122/90 mmHg. The patient exercised according to regular Travis protocol for total duration of 7 minutes completing stage III of the Travis protocol by 1 minute. The maximum heart rate attained was 137 bpm which was 95% of max impact at heart rate the maximum workload was 10.1 metabolic equivalents. At rest there were no ST or T wave changes noted to suggest ischemia and at peak exercise upsloping ST changes were noted with did not meet the criteria for ischemia. No clinical angina was noted the test was terminated due to dyspnea. The peak blood pressure was 160/80 mmHg rate- pressure product of 20,320. Myocardial perfusion protocol. 11.7 mCi of technetium 99m sestamibi was injected at rest. The patient exercised according to regular Travis protocol for total duration of 7 minutes. At peak exercise 33.3 mCi of technetium 99m sestamibi was injected stress images were obtained stress and rest images were reconstructed and compared in the short axis vertical long and horizontal long axis. Gated images were also obtained per Perfusion SPECT analysis: Review of the stress images demonstrate normal uptake of tracer noted in all areas of the myocardium. The resting images similarly demonstrate normal uptake of tracer noted in all areas of the myocardium. No areas of reversibility are noted suggest ischemia and no previous infarct is noted. Gated SPECT analysis: The gated ejection fraction is 63%. Conclusion: Normal exercise myocardial perfusion stress test at a high workload. Preserved ejection fraction.
== END 2021-06-24 23:59 | disposition short-term general hospital (02) ==
LOC: CVS 06:12
PROVIDERS: PCP Internal Medicine; Referring Provider Internal Medicine; Visit Provider Internal Medicine
DX: R06.00 Dyspnea, unspecified (principal); E78.5 Hyperlipidemia, unspecified
CPT/HCPCS: 78452; 93017; A9500; A4216

== ENCOUNTER 2021-07-03 11:44 | Outpatient (CLI) | payer MEDICARE, SELFPAY ==
[2021-07-03 12:42] LABS: PSA,Total- Diagnostic < 0.01 ng/mL (0.0-4.0)
== END 2021-07-03 23:59 | disposition short-term general hospital (02) ==
LOC: LAB 11:45
PROVIDERS: PCP Internal Medicine; Visit Provider Urology
DX: C61 Malignant neoplasm of prostate (principal)
CPT/HCPCS: 36415; 84153

== ENCOUNTER 2021-07-13 08:02 | Outpatient (CLI) | payer MEDICARE, SELFPAY ==
[2021-07-13 09:48] LABS: Absolute Lymphocyte Count 0.92 X10^3/uL (0.83-4.51); Absolute Neutrophil Count 4.1 X10^3/uL (2.0-7.7); Basophil# 0.03 X10^3/uL; Basophil% 0.5 % (0-1); Eosinophil# 0.18 X10^3/uL; Eosinophils% 3.1 % (0-5); Hematocrit 45.1 % (40-54); Lymphocyte # 0.92 X10^3/ul (0.83-4.51); Lymphocyte % 15.9 % (19-41); Mean Corp Hgb Conc 33.3 g/dL (32-36); Mean Corpuscular Hgb 29.4 pg (27.0-32.0); Mean Corpuscular Volume 88.4 fL (80-94); Mean Platelet Vol. 11.6 fl (6.2-12.0); Monocyte# 0.53 X10^3/uL; Monocyte% 9.1 % (0-10); NRBC Flagged by Analyzer 0 % (0-5); Neutrophil # 4.12 X10^3/uL (2.7-7.7); Neutrophil % 71.1 % (47-70); Platelet Count 177 K/mm3 (150-450); RBC Distribution Width CV 13.7 % (11.6-14.6); RBC Distribution Width SD 44.6 fl (35.1-43.9); White Blood Count 5.8 K/mm3 (4.4-11.0)
[2021-07-13 10:07] LABS: AST(SGOT) 17 U/L (15-37); Alanine Aminotransfer ALT/SGPT 29 U/L (16-61); Albumin, Serum 3.5 g/dL (3.2-5.0); Alkaline Phosphatase 73 U/L (45-117); Anion Gap 3 (5-15); BUN 15 mg/dL (7-18); Calcium,Total 8.7 mg/dL (8.5-10.1); Chloride 104 mmol/L (98-107); Creatinine, Serum 1.07 mg/dL (0.70-1.30); EST Glomerular Filtration Rate 71 mL/min (>60); Est Glom Filt Rate - Afr Amer 86 mL/min (>60); Globulin 3.4 g/dL (2.2-4.2); Glucose 220 mg/dL (74-106); Potassium 3.8 mmol/L (3.5-5.1); Protein, Total 6.9 g/dL (6.4-8.2); Sodium Level 140 mmol/L (136-145)
[2021-07-13 10:27] LABS: Hemoglobin A1c 6.1 % (3.8-5.6)
== END 2021-07-13 23:59 | disposition home or self-care (01) ==
LOC: LAB 08:03
PROVIDERS: Family Medicine; PCP Internal Medicine; Visit Provider Internal Medicine
DX: R17 Unspecified jaundice (principal); R73.09 Other abnormal glucose
CPT/HCPCS: 36415; 80053; 83036; 85025

== ENCOUNTER 2021-09-18 10:55 | Day surgery (SDC) | payer MEDICARE, SELFPAY ==
[2021-09-18] VITALS (7 sets, daily range): BP systolic 123–136; BP diastolic 62–90; PULSE 55–59; RESP 16–17; TEMP 36.6–37.1; O2SAT 97–100; BMI 23.5
[2021-09-18] MEDS: Lactated Ringers 1,000 ML 100 ML IV (12:21)
[2021-09-18] MEDS: Cefazolin 2 GM in 0.9% Normal Saline 100 ML IV (13:55)
--- NOTE | 2021-09-18 14:05 | RAD_ITS ---
STUDY: X-RAY - PELVIS REASON FOR EXAM: Male, 76 years old. INTERSTIM THERAPY 1 TECHNIQUE: One view of the pelvis was obtained. COMPARISON: None. FINDINGS: There is an electrode extending over the right sacrum. There is a non-specific bowel gas pattern. Normal visualized soft tissue structures. Normal bilateral iliac wings, sacroiliac joints and visualized sacrum. Normal visualized bilateral superior and inferior pubic rami. Normal pubic symphysis. Normal ischial tuberosities. Normal visualized right femoral head. Normal right acetabulum. Normal right hip joint. Normal visualized left femoral head. Normal left acetabulum. Normal left hip joint. RAD/Pelvis 1 or 2 Views IMPRESSION: Electrode extending over the right sacrum. Electronically Signed: Nirmal Hill MD at 5:24 EDT ,
--- NOTE | 2021-09-18 14:09 | HP.PCM_ITS ---
HPI - General HPI Narrative VENESSA GIBBS, is a 76 M who presents for placement of stage I interstim therapy. [facility] Medical History (Updated 09/18/21 @ 14:[address] Capo Mccullough MD) Aneurysm of aorta Anxiety and depression Arthritis Back pain Bladder disease Cataracts, bilateral Chronic headaches CPAP (continuous positive airway pressure) dependence Diabetes Dietary restriction Glaucoma History of stress test HTN (hypertension) Hx of bladder problems Hyperlipemia Mass Non-smoker Prostate cancer Seasonal allergies Wears glasses Wears partial dentures Home Medications duloxetine 60 mg capsule,delayed release 60 mg PO DAILY 03/28/21 [History Last Taken Unknown] lisinopril 10 mg tablet 10 mg PO DAILY #30 tab 07/03/21 [Rx Last Taken 09/18/21 0730] lovastatin 20 mg tablet 20 mg PO DAILY #90 tab 09/05/21 [Rx Last Taken Unknown] ipratropium bromide 2.5 ml INHALATION Q6H PRN 09/11/21 [History Last Taken Unknown] latanoprost 1 drp EACH EYE QPM 09/11/21 [History Last Taken Unknown] prednisolone acetate 2 drp EACH EYE BID 09/11/21 [History Last Taken Unknown] cephalexin 500 mg PO Q8H #14 cap 09/18/21 [Rx Last Taken Unknown] oxycodone-acetaminophen 1 tab PO Q6H PRN 7 Days #14 tab 09/18/21 [Rx Last Taken Unknown] Allergy/AdvReac Type Severity Reaction Status Date / Time No Known Allergies Allergy Verified 09/11/21 14:21 Family History Unknown Arthritis Diabetes Heart disease Hypertension Mother Arthritis Heart disease Hypertension Father Heart disease Hypertension Depression Brother Diabetes Surgical History History of prostate surgery History of tonsillectomy and adenoidectomy Hx of bilateral inguinal hernia repair Hx of colonoscopy Hx of right cataract extraction Social History Smoking Status: Never smoker alcohol intake: never substance use type: does not use caffeine: Yes what type of physical activity do you participate in: bicycling and weight training frequency: 5-6 times per week Vital Signs Vital Signs Vital Signs: 09/18/21 11:51 Temperature 97.9 F Temperature Source Temporal Pulse Rate 56 L Respiratory Rate 16 Respiratory Pattern Normal Blood Pressure 131/90 H Blood Pressure Mean 103 Blood Pressure Source Monitor Pulse Ox 97 Oxygen Delivery Method Room Air Weight Weight: 64 kg Body Mass Index (BMI) 23.5
--- NOTE | 2021-09-18 14:09 | PCM.DC ---
Discharge Instructions Diet Discharge Diet: No restrictions Dressing / Incision Call your doctor if you observe: Fever of 101 or Higher Follow Up Care Please Follow Up With: Capo Mccullough MD When: Call [phone] for an appointment Test Results: Test results from this visit will be discussed in further detail at your follow-up appointment, if applicable. Discharge Plan Admission Primary Reason for Your Visit: stage I interstim therapy Attending Provider: Capo Mccullough Primary Care Provider: Nicole Lozano Discharge Orders/Prescriptions Prescriptions: New cephalexin 500 mg capsule 500 mg PO Q8H Qty: 14 RF: 0 oxycodone-acetaminophen 5-325 mg tablet 1 tab PO Q6H PRN (Reason: pain) 7 Days Qty: 14 RF: 0 No Action duloxetine [Cymbalta] 60 mg capsule,delayed release(DR/EC) 60 mg PO DAILY RF: 0 lisinopril 10 mg tablet 10 mg PO DAILY Qty: 30 RF: 5 latanoprost 0.005 % Drops 1 drp EACH EYE QPM RF: 0 prednisolone acetate 1 % Drops,Suspension 2 drp EACH EYE BID RF: 0 ipratropium bromide 0.02 % Solution 2.5 ml INHALATION Q6H PRN (Reason: ALLERIES) RF: 0 lovastatin 20 mg tablet 20 mg PO DAILY Qty: 90 RF: 3 Referrals / Follow Up: Capo Mccullough MD [STAFF PHYSICIAN] - Nicole Lozano MD [Primary Care Provider] - Disposition Disposition (needs filled in before D/C Order can be placed): Home, Self Care
--- NOTE | 2021-09-18 14:49 | OP.PCM_ITS ---
Report of Operation Date of Procedure: 09/18/21 Pre-Operative Diagnosis: Urge incontinence and frequency Post-Operative Diagnosis: Same Surgery/Procedure Performed:: Stage I InterStim therapy and Programming of device. Description of Surgical Findings:: The patient presents to the operating room for placement of stage I and II therapy. In the preoperative setting she is failed medical management for the patient urge incontinence and severe frequency of urination, a voiding diary was reviewed. The patient understands these is no guarantees that in the future the InterStim therapy will keep working to the patient's satisfaction and its always possible and it may need to have a surgical revision, change in implant, possible revision or removal of implant. We also talk about the risks of pain with stimulation, bleeding and infection or any injury to nerves or bony structures and the tailbone area. After reviewing all this with the patient in the preoperative area she signed the consent form and we proceeded with stageI implant. Patient was brought back to the operating room and placed supine on the table and then transferred to facedown the table and underwent sedation with comfort hugging a pillow. Patient's lower back was prepped and draped in usual sterile fashion, I then palpated the bony landmarks identify the tailbone the sacrum and the pocket area was identified where the lead oracle developer would be implanced and also the lead. Fluoroscopy was brought in to identify the pelvis we identify the spinous processes of the pelvic bone we used a finder needle to lay across the spinous process to the approximate the location of the S3 foramen. I then identified the lateral borders of the foramen using the other spinal needle. Under this the skin was then marked and potential entrances were by approximation and bony landmarks using fluoroscopy. I then infiltrated the skin about 2 cm up above the approximation of the S3 foramen and then used the needle within the stage I InterStim kit to go straight down to the potential S3 foramen spot marching along the sacrum until the needle electrode dropped into what appeared to be the S3 foramen. Under fluoroscopy in AP and lateral veiw I confirmed that I had the lead in the S3 foramen, I then stimulated the needle and had good adi response and had toe flexion but no calf rotation, confirm placement of the lead in the S3 Foremen. I then placed the guide through the needle the stylette was removed and then the needle was removed over the guide an incision was made into the skin and then through the incision incision and over the guide I introduced the sheath I followed the sheath under fluoroscopy until the marker on the sheath was three fourths down from the anterior plate of the sacrum. Once this was in good position then the stylette was removed and through the sheath I then introduced the stage I InterStim stimulator lead, I then checked the lead for stimulation of adi and toe flexion at all 4 sites 0, 1, 2, 3 and had good response with adi and toe flexion and pleased with the placement of the lead. Under fluoroscopy I captured the placement the lead this was documented both in AP and lateral views. I then removed the stylette within the lead and then pulled back in the sheath of the deployed the tines on the lead to secure the lead and the sacrum and the S3 foramen. Another fluoroscopic check was done to make sure no movement of the lead. After this was confirmed then pocket was created in the patient's lateral side where the generator pocket would be placed after the pocket was created in the subcutaneous tissue then using the guide created in the kit the end of the lead was then transferred from the insertion site to the pocket site subcutaneously. The temporary lead on the stage I was then added in extension we tied a knot to prevent lead migration and that we extracted the lead through a separate site superior to the original implant site. We then closed the incisions with subcuticular skin stitches and dressings and bandages were placed and the temporary lead was then hooked up to the Bluetooth connect connector and then connected to the stimulator device and then programming was done on the InterStim therapy. Programming was done to start the InterStim therapy stage I trial. Patient will call support center to adjust programming as necessary. We will follow-up in 2 weeks for either implant of stage II or removal of stage I lead. Type of Anesthesia: General Drains: none Admit VTE Documentation VTE Present on Admission: No VTE Mechan Device Prophylaxis: SCD's VTE Pharm Prophylaxis ordered?: No
[2021-09-18] MEDS: Lidocaine 1% (50 ml mdv) 50 ML Vial (14:56)
== END 2021-09-18 16:11 | disposition home or self-care (01) ==
LOC: SDC 10:56 → AC 10:59
PROVIDERS: PCP Internal Medicine; Visit Provider Urology
PROC: (CPT 64561; principal; 2021-09-18 13:10)
DX: N39.41 Urge incontinence (principal); E11.9 Type 2 diabetes mellitus without complications; R35.0 Frequency of micturition; E78.5 Hyperlipidemia, unspecified; I10 Essential (primary) hypertension; Z79.899 Other long term (current) drug therapy
CPT/HCPCS: 64561; 00300; 72170; 76000; J7120; J2405

== ENCOUNTER 2021-10-09 11:59 | Day surgery (SDC) | payer MEDICARE, SELFPAY ==
[2021-10-09] VITALS (10 sets, daily range): BP systolic 104–134; BP diastolic 64–83; PULSE 59–74; RESP 16–18; TEMP 36.9–37.2; O2SAT 94–100; BMI 23.3
[2021-10-09] MEDS: Lactated Ringers 1,000 ML 15 ML IV (12:46)
[2021-10-09] MEDS: Cefazolin 2 GM in 0.9% Normal Saline 100 ML IV (14:14)
[2021-10-09] MEDS: Lidocaine 1% (20 ml mdv) 20 ML Vial (14:24)
--- NOTE | 2021-10-09 14:42 | PCM.HP.STD ---
HPI - General HPI Narrative VENESSA GIBBS, is a 76 M who presents for second stage implant he had a significant improvement in urinary symptoms both subjectively and by voiding diary after stage I implant so we will proceed with second stage implant today. PFSH Medical History Aneurysm of aorta Anxiety and depression Arthritis Back pain Bladder disease Cataracts, bilateral Chronic headaches CPAP (continuous positive airway pressure) dependence Diabetes Dietary restriction Glaucoma History of stress test HTN (hypertension) Hx of bladder problems Hyperlipemia Mass Non-smoker Prostate cancer Seasonal allergies Wears glasses Wears partial dentures Home Medications duloxetine 60 mg capsule,delayed release 60 mg PO DAILY 03/28/21 [History Last Taken Unknown] lovastatin 20 mg tablet 20 mg PO DAILY #90 tab 09/05/21 [Rx Last Taken Unknown] ipratropium bromide 2.5 ml INHALATION Q6H PRN 09/11/21 [History Last Taken Unknown] latanoprost 1 drp EACH EYE QPM 09/11/21 [History Last Taken Unknown] prednisolone acetate 2 drp EACH EYE BID 09/11/21 [History Last Taken Unknown] oxycodone-acetaminophen 1 tab PO Q6H PRN 7 Days #14 tab 09/18/21 [Rx Last Taken Unknown] lisinopril 10 mg tablet 10 mg PO DAILY #90 tab 10/03/21 [Rx Last Taken 10/09/21 10:30] cephalexin 500 mg PO BID #10 cap 10/09/21 [Rx Last Taken Unknown] Allergy/AdvReac Type Severity Reaction Status Date / Time No Known Allergies Allergy Verified 10/09/21 12:33 Family History Unknown Arthritis Diabetes Heart disease Hypertension Mother Arthritis Heart disease Hypertension Father Heart disease Hypertension Depression Brother Diabetes Surgical History History of prostate surgery History of tonsillectomy and adenoidectomy Hx of bilateral inguinal hernia repair Hx of colonoscopy Hx of right cataract extraction Social History Smoking Status: Never smoker alcohol intake: never substance use type: does not use caffeine: Yes what type of physical activity do you participate in: bicycling and weight training frequency: 5-6 times per week Vital Signs Vital Signs Vital Signs: 10/09/21 12:35 10/09/21 12:37 Temperature 99.0 F Temperature Source Temporal Pulse Rate 74 Respiratory Rate 18 Respiratory Pattern Normal Blood Pressure 109/68 Blood Pressure Mean 81 Blood Pressure Source Monitor Blood Pressure Position Semi-Fowlers Blood Pressure Location Left Arm Pulse Ox 100 Oxygen Delivery Method Room Air Weight Weight: 63.684 kg Body Mass Index (BMI) 23.3 Results Lab / Micro Data Micro: Microbiology 10/09/21 12:25 Interface Orders SARS-CoV-2 Antigen (Rapid) - Final
--- NOTE | 2021-10-09 14:43 | PCM.DC ---
Discharge Instructions Diet Discharge Diet: No restrictions Activity Discharge Activity: Return to Normal Activity and May Not Drive (while taking narcotic pain medications.) Dressing / Incision Call your doctor if you observe: Fever of 101 or Higher Follow Up Care Please Follow Up With: Capo Mccullough MD When: Call [phone] for an appointment Test Results: Test results from this visit will be discussed in further detail at your follow-up appointment, if applicable. Discharge Plan Admission Primary Reason for Your Visit: stage II interstim implant Attending Provider: Capo Mccullough Primary Care Provider: Nicole Lozano Discharge Orders/Prescriptions Prescriptions: New cephalexin 500 mg capsule 500 mg PO BID Qty: 10 RF: 0 Continued duloxetine [Cymbalta] 60 mg capsule,delayed release(DR/EC) 60 mg PO DAILY RF: 0 latanoprost 0.005 % Drops 1 drp EACH EYE QPM RF: 0 prednisolone acetate 1 % Drops,Suspension 2 drp EACH EYE BID RF: 0 ipratropium bromide 0.02 % Solution 2.5 ml INHALATION Q6H PRN (Reason: ALLERIES) RF: 0 oxycodone-acetaminophen 5-325 mg tablet 1 tab PO Q6H PRN (Reason: pain) 7 Days Qty: 14 RF: 0 lovastatin 20 mg tablet 20 mg PO DAILY Qty: 90 RF: 3 lisinopril 10 mg tablet 10 mg PO DAILY Qty: 90 RF: 3 Referrals / Follow Up: Capo Mccullough MD [STAFF PHYSICIAN] - Nicole Lozano MD [Primary Care Provider] - Disposition Disposition (needs filled in before D/C Order can be placed): Home, Self Care
--- NOTE | 2021-10-09 14:44 | PCM.OPRPT ---
Report of Operation Date of Procedure: 10/09/21 Pre-Operative Diagnosis: Stage II InterStim therapy implant Post-Operative Diagnosis: The same Surgery/Procedure Performed:: Stage II InterStim therapy implant and interstim therapy programming Description of Surgical Findings:: The patient presents to the operating room for placement of stage I and II therapy. In the preoperative setting she is failed medical management for the patient urge incontinence and severe frequency of urination, a voiding diary was reviewed. The patient understands these is no guarantees that in the future the InterStim therapy will keep working to the patient's satisfaction and its always possible and it may need to have a surgical revision, change in implant, possible revision or removal of implant. We also talk about the risks of pain with stimulation, bleeding and infection or any injury to nerves or bony structures and the tailbone area. After reviewing all this with the patient in the preoperative area he signed the consent form and we proceeded with stage II therapy implant. Patient was taken back to the operating room at the smooth induction of a MAC local bandages were removed and lidocaine was infiltrated into the old incision the old pocket was opened up the old extension lead was removed and the new lead was inspected and then we confirmed the pocket was created in the patient's lateral side where the generator pocket would be placed after the pocket was created in the subcutaneous tissue then using the guide created in the kit the end of the lead was then transferred from the insertion site to the pocket site subcutaneously. Then the generator was opened and I made sure I cleaned the lead completely I attached the lead to the generator use the screwdriver provided in the kit to then secure the bolt secure the lead to the generator prior to doing this again checked the lead 0, 1, 2, 3 and there was still good stimulation at all sites. I then placed the lead into the generator and the generator was put into the pocket that was created. I made sure that the generator was placed with InterStim labeling side up and was oriented appropriately. I then checked for impedance using the [employer] rep had the device checked in the impedance was normal with no abnormal impedance and all leads in all 4-lead sites were programmed and responded normally. The generator was then programmed to ensure good proper stimulation of the InterStim device this was done in the operating room, after complex programming was completed we finished with fluoroscopy I then closed the insertion site with subcuticular stitches and Steri-Strips and bandages and then closed the pocket with subcuticular stitches and Steri-Strips and bandages. The patient's anesthetic was reversed patient was taken back to the recovery room in stable condition and further training and education will be given to the patient regarding how to use the new InterStim therapy, the InterStim device was then programmed. Surgeon: briana Type of Anesthesia: General Admit VTE Documentation VTE Present on Admission: No VTE Mechan Device Prophylaxis: SCD's VTE Pharm Prophylaxis ordered?: No
--- NOTE | 2021-10-09 14:58 | SUR.PHASEI ---
device rep at bedside explaining device
== END 2021-10-09 16:03 | disposition home or self-care (01) ==
LOC: SDC 12:00 → AC 12:01
PROVIDERS: PCP Internal Medicine; Referring Provider Urology; Visit Provider Urology
PROC: (CPT 64590; principal; 2021-10-09 14:35)
DX: N39.41 Urge incontinence (principal); E11.65 Type 2 diabetes mellitus with hyperglycemia; R35.0 Frequency of micturition; I10 Essential (primary) hypertension; E78.5 Hyperlipidemia, unspecified; Z20.822 Contact with and (suspected) exposure to COVID-19; F32.A Depression, unspecified; F41.9 Anxiety disorder, unspecified; Z79.899 Other long term (current) drug therapy; Z85.46 Personal history of malignant neoplasm of prostate
CPT/HCPCS: 64590; 95972; 00300; 87426; J7120; C1767; J2405

== ENCOUNTER → 2022-02-05 | Outpatient (CLI) | payer MEDICARE, SELFPAY ==
[2022-02-11 16:09] LABS: Testosterone, Free 5.89 ng/dL (5.00-21.00)
[2022-02-12 12:02] LABS: Testosterone, % Free 1.47 % (1.50-4.20); Testosterone, Total 401 ng/dL (264-916)
== END | disposition home or self-care (01) ==
LOC: LAB 11:10
PROVIDERS: PCP Internal Medicine; Visit Provider Urology
DX: C61 Malignant neoplasm of prostate (principal)
CPT/HCPCS: 36415; 84402; 84403

== ENCOUNTER → 2022-05-20 | Outpatient (CLI) | payer MEDICARE, SELFPAY ==
[2022-05-20 07:10] LABS: Absolute Lymphocyte Count 1.34 X10^3/uL (0.83-4.51); Absolute Neutrophil Count 2.8 X10^3/uL (2.0-7.7); Basophil# 0.04 X10^3/uL; Basophil% 0.8 % (0-1); Hematocrit 44.6 % (40-54); Hemoglobin 14.4 g/dL (13.0-16.5); Lymphocyte # 1.34 X10^3/ul (0.83-4.51); Lymphocyte % 26.8 % (19-41); Mean Corp Hgb Conc 32.3 g/dL (32-36); Mean Corpuscular Hgb 28.9 pg (27.0-32.0); Mean Corpuscular Volume 89.6 fL (80-94); Mean Platelet Vol. 11.4 fl (6.2-12.0); Monocyte# 0.59 X10^3/uL; Monocyte% 11.8 % (0-10); NRBC Flagged by Analyzer 0 % (0-5); Neutrophil # 2.81 X10^3/uL (2.7-7.7); Neutrophil % 56.2 % (47-70); Platelet Count 186 K/mm3 (150-450); RBC Distribution Width CV 13.6 % (11.6-14.6); RBC Distribution Width SD 44.6 fl (35.1-43.9); Red Blood Count 4.98 M/mm3 (4.6-6.2)
[2022-05-20 07:49] LABS: ALB/GLOB Ratio 1.1 RATIO (0.9-2.4); AST(SGOT) 17 U/L (15-37); Alanine Aminotransfer ALT/SGPT 24 U/L (16-61); Albumin, Serum 3.6 g/dL (3.2-5.0); Alkaline Phosphatase 63 U/L (45-117); Anion Gap 3 (5-15); BUN 19 mg/dL (7-18); BUN/Creat Ratio 17.8 RATIO (10-20); Calcium,Total 8.8 mg/dL (8.5-10.1); Chloride 108 mmol/L (98-107); Cholesterol 167 mg/dL (200); Creatinine, Serum 1.07 mg/dL (0.70-1.30); EST Glomerular Filtration Rate 71 mL/min (>60); Est Glom Filt Rate - Afr Amer 86 mL/min (>60); Free T3 2.8 pg/mL (2.18-3.98); Globulin 3.2 g/dL (2.2-4.2); Glucose 104 mg/dL (74-106); High Density Lipoprotein 57 mg/dL; Protein, Total 6.8 g/dL (6.4-8.2); Sodium Level 142 mmol/L (136-145); T4 Free Direct 0.91 ng/dL (0.76-1.46); Thyroid Stim Hormone (TSH) 1.16 uIU/mL (0.358-3.74); Triglycerides 66 mg/dL; Very Low Density Lipoprotein 13 mg/dL (5-40)
[2022-05-20 07:58] LABS: Hemoglobin A1c 6.4 % (3.8-5.6)
[2022-05-20 08:02] LABS: Vitamin D,25 Hydroxy 28.8 ng/mL
== END | disposition home or self-care (01) ==
LOC: LAB 05:57
PROVIDERS: PCP Internal Medicine; Referring Provider Internal Medicine; Visit Provider Internal Medicine
DX: J30.2 Other seasonal allergic rhinitis (principal); E11.65 Type 2 diabetes mellitus with hyperglycemia; I10 Essential (primary) hypertension; F41.9 Anxiety disorder, unspecified; F32.9 Major depressive disorder, single episode, unspecified; G47.30 Sleep apnea, unspecified; R53.81 Other malaise; R53.82 Chronic fatigue, unspecified; E55.9 Vitamin D deficiency, unspecified
CPT/HCPCS: 36415; 80053; 80061; 82306; 83036; 84439; 84443; 84481; 85025

== ENCOUNTER → 2022-06-10 | Outpatient (CLI) | payer MEDICARE, SELFPAY ==
[2022-06-10 17:02] LABS: PSA,Total- Diagnostic < 0.01 ng/mL (0.0-4.0)
== END | disposition home or self-care (01) ==
LOC: LABSPEC 14:37
PROVIDERS: PCP Internal Medicine; Visit Provider Urology
DX: C61 Malignant neoplasm of prostate (principal)
CPT/HCPCS: 36415; 84153

== ENCOUNTER → 2023-05-23 | Outpatient (CLI) | payer MEDICARE, SELFPAY ==
[2023-05-23 07:57] LABS: Absolute Lymphocyte Count 1.23 X10^3/uL (0.83-4.51); Absolute Neutrophil Count 2.8 X10^3/uL (2.0-7.7); Basophil# 0.04 X10^3/uL; Basophil% 0.8 % (0-1); Eosinophil# 0.21 X10^3/uL; Eosinophils% 4.2 % (0-5); Hemoglobin 14.3 g/dL (13.0-16.5); Lymphocyte # 1.23 X10^3/ul (0.83-4.51); Lymphocyte % 24.8 % (19-41); Mean Corp Hgb Conc 31.8 g/dL (32-36); Mean Corpuscular Hgb 28.7 pg (27.0-32.0); Mean Corpuscular Volume 90.4 fL (80-94); Monocyte# 0.61 X10^3/uL; Monocyte% 12.3 % (0-10); NRBC Flagged by Analyzer 0 % (0-5); Neutrophil # 2.84 X10^3/uL (2.7-7.7); Neutrophil % 57.5 % (47-70); Platelet Count 198 K/mm3 (150-450); RBC Distribution Width CV 13.6 % (11.6-14.6); RBC Distribution Width SD 45.5 fl (35.1-43.9); Red Blood Count 4.98 M/mm3 (4.6-6.2)
[2023-05-23 08:29] LABS: ALB/GLOB Ratio 1.1 RATIO (0.9-2.4); AST(SGOT) 17 U/L (15-37); Alanine Aminotransfer ALT/SGPT 24 U/L (16-61); Albumin, Serum 3.5 g/dL (3.2-5.0); Alkaline Phosphatase 65 U/L (45-117); Anion Gap -1 (5-15); BUN 15 mg/dL (7-18); BUN/Creat Ratio 13.5 RATIO (10-20); Calcium,Total 9.5 mg/dL (8.5-10.1); Chloride 109 mmol/L (98-107); Cholesterol 170 mg/dL (200); Creatinine, Serum 1.11 mg/dL (0.70-1.30); EST Glomerular Filtration Rate 68 mL/min (>60); Est Glom Filt Rate - Afr Amer 82 mL/min (>60); Globulin 3.2 g/dL (2.2-4.2); Glucose 118 mg/dL (74-106); High Density Lipoprotein 53 mg/dL; PSA,Total- Diagnostic < 0.01 ng/mL (0.0-4.0); Potassium 4.5 mmol/L (3.5-5.1); Protein, Total 6.7 g/dL (6.4-8.2); Sodium Level 142 mmol/L (136-145); Triglycerides 69 mg/dL; Very Low Density Lipoprotein 14 mg/dL (5-40)
== END | disposition home or self-care (01) ==
LOC: LAB 06:57
PROVIDERS: PCP Internal Medicine; Referring Provider Family Medicine; Visit Provider Family Medicine
DX: Z12.5 Encounter for screening for malignant neoplasm of prostate (principal); C61 Malignant neoplasm of prostate; I10 Essential (primary) hypertension
CPT/HCPCS: 36415; 80053; 80061; 84153; 85025

== ENCOUNTER → 2023-06-05 | Outpatient (CLI) | payer MEDICARE, SELFPAY ==
--- OUTSIDE RECORDS SUMMARY | 2023-06-05 10:00 | XMS RPT_ITS | CCD ---
Author Name Unknown Address [address] [place] [address] Organization [facility] Care Team Providers Care Programs Director Name Role Phone Compa Luo Unavailable Unavailable Compa Luo Unavailable Unavailable Stevie Cerna Unavailable Unavailable Nicole Lozano MD Primary Care Provider [phone] REBECCA ALTAMIRANO Referring Unavailable NICOLE LOZANO Primary Care Unavailable REBECCA ALTAMIRANO Attending Unavailable NICOLE LOZANO Primary Care Unavailable Allergies Allergy Classification Reported Allergen(s) Allergy Type Date of Onset Reaction(s) Facility (2 sources) Dust; Translations: [DUST] Allergy to substance 2 Other: See Comments [facility] (2 sources) House dust mite; Translations: [DUST MITES] Allergy to substance 4 Other: See Comments [facility] Medications Completed/Discontinued Medications Medication Drug Class(es) Dates Sig (Normalized) Sig (Original) cycloSPORINE 0.5 mg/ml ophthalmic suspension (1 source) Calcineurin Inhibitor Immunosuppressant Start: 05-12-2014 take 1 drop(s) into the eye(s) twice daily cycloSPORINE (RESTASIS) 0.05 % ophthalmic emulsion Use 1 Drop in both eyes twice daily. 60 Vial 5 05/12/2014 Active Problems Active Problems Problem Classification Problem Date Documented Date Episodic/Chronic Diabetes mellitus with complications (1 source) Type 2 diabetes mellitus with unspecified complications; Translations: [Type II diabetes mellitus with manifestations (HCC)] Onset: 02-18-2023 Chronic Diabetes mellitus without complication (3 sources) Prediabetes; Translations: [Prediabetes] Onset: 11-13-2011 02-18-2023 Episodic Disorders of lipid metabolism (1 source) Hyperlipidemia; Translations: [Hyperlipidemia, unspecified] Onset: 11-13-2011 11-13-2011 Chronic Disorders usually diagnosed in infancy, childhood, or adolescence (1 source) Tic; Translations: [Tic disorder, unspecified] Onset: 05-12-2014 05-12-2014 Chronic Diverticulosis and diverticulitis (1 source) Diverticular disease; Translations: [Diverticulosis of intestine, part unspecified, without perforation or abscess without bleeding] Onset: 07-06-2012 07-06-2012 Chronic Essential hypertension (1 source) Hypertensive disorder; Translations: [Essential (primary) hypertension] Onset: 07-29-2013 07-29-2013 Chronic Hyperplasia of prostate (1 source) Benign prostatic hyperplasia; Translations: [Benign prostatic hyperplasia without lower urinary tract symptoms] Onset: 11-13-2011 11-13-2011 Chronic Mood disorders (1 source) Depressive disorder; Translations: [Other specified depressive episodes] Onset: 04-21-2013 04-21-2013 Chronic Past or Other Problems Problem Classification Problem Date Documented Da te Episodic/Chronic Allergic reactions (1 source) Solar degeneration; Translations: [Other skin changes due to chronic exposure to nonionizing radiation] Onset: 08-17-2012 08-17-2012 Episodic Hemorrhoids (1 source) Internal hemorrhoids; Translations: [Other hemorrhoids] Onset: 07-06-2012 07-06-2012 Episodic Malaise and fatigue (1 source) Fatigue; Translations: [Other fatigue] Onset: 11-13-2011 11-13-2011 Episodic Other and unspecified benign neoplasm (1 source) Senile angioma; Translations: [Hemangioma of skin and subcutaneous tissue] Onset: 08-17-2012 08-17-2012 Episodic Other and unspecified benign neoplasm (1 source) Benign neoplasm of skin of upper arm; Translations: [Melanocytic nevi of unspecified upper limb, including shoulder] Onset: 10-07-2013 10-07-2013 Episodic Other and unspecified benign neoplasm (1 source) Melanocytic nevus of upper limb; Translations: [Melanocytic nevi of unspecified upper limb, including shoulder] Onset: 10-07-2013 10-07-2013 Episodic Other eye disorders (1 source) Tear film insufficiency; Translations: [Dry eye syndrome of unspecified lacrimal gland] Onset: 05-12-2014 05-12-2014 Episodic Other skin disorders (1 source) Actinic keratosis; Translations: [Actinic keratosis] Onset: 08-17-2012 08-17-2012 Episodic Other skin disorders (1 source) Inflamed seborrheic keratosis; Translations: [Inflamed seborrheic keratosis] Onset: 08-17-2012 08-17-2012 Episodic Other skin disorders (1 source) Solar lentigo; Translations: [Other melanin hyperpigmentation] Onset: 08-17-2012 08-17-2012 Episodic Other skin disorders (1 source) Comedonal acne; Translations: [Acne vulgaris] Onset: 08-17-2012 08-17-2012 Episodic Other skin disorders (1 source) Epidermoid cyst of skin; Translations: [Epidermal cyst] Onset: 08-17-2012 08-17-2012 Episodic Other skin disorders (1 source) Seborrheic keratosis; Translations: [Other seborrheic keratosis] Onset: 08-17-2012 08-17-2012 Episodic Results Test Name Value Interpretation Reference Range Facil ity Vital Signs Date Time Vital Sign Value Performing Clinician Faci lity 02-18-2023 10:08-0400 Body height 162.6 cm Rebecca Cioce COSTUME MISTRESS.CN P Work Phone: [facility] 02-18-2023 10:08-0400 Body weight 63.78 kg Rebecca Cioce [employer]STUME MISTRESS.CN P Work Phone: [facility] 02-18-2023 10:08-0400 Diastolic blood pressure 72 mm[Hg] Rebecca Cioce COSTUME MISTRESS.INSTRUCTOR ADJUNCT SURGICAL TECHNICIAN Work Phone: [facility] 02-18-2023 10:08-0400 Heart rate 64 /min Rebecca Cioce [employer]STUME MISTRESS.CN P Work Phone: [facility] 02-18-2023 10:08-0400 SaO2% (BldA) [Mass fraction] 97 % Rebecca Cioce COSTUME MISTRESS.INSTRUCTOR ADJUNCT SURGICAL TECHNICIAN Work Phone: [facility] 02-18-2023 10:08-0400 Systolic blood pressure 122 mm[Hg] Rebecca Cioce COSTUME MISTRESS.INSTRUCTOR ADJUNCT SURGICAL TECHNICIAN Work Phone: [facility] Encounters Encounter Date Encounter Type Care Provider Facility Start: 02-18-2023 End: 02-19-2023 ambulatory REBECCA ALTAMIRANO Facility:[facility] Start: 02-18-2023 End: 02-18-2023 Patient encounter procedure Rebecca Altamirano COSTUME MISTRESS.INSTRUCTOR ADJUNCT SURGICAL TECHNICIAN Work Phone: Endocrinology Plan of Treatment Date Care Activity Detail Author Start: 02-18-2026 Diabetes Screening Diabetes Screenin g [facility] Start: 02-19-2024 BP Controlled (<130/80) BP Controlle d (<130/80) [facility] Start: 02-18-2023 End: 04-20-2023 25-hydroxyvitamin D3 [Mass/volume] in Serum or Plasma [facility] Work Phone: Immunizations Immunization Date Immunization Notes Care Provider Fa seema 03-11-2022 influenza virus vacc ine, unspecified formulation Rebecca Altamirano COSTUME MISTRESS.INSTRUCTOR ADJUNCT SURGICAL TECHNICIAN Work Phone: [facility] 04-05-2012 influenza virus vacc ine, unspecified formulation Rebecca Altamirano COSTUME MISTRESS.INSTRUCTOR ADJUNCT SURGICAL TECHNICIAN Work Phone: [facility] 03-15-2010 pneumococcal polysaccharide vaccine, 23 valent Rebecca Altamirano COSTUME MISTRESS.INSTRUCTOR ADJUNCT SURGICAL TECHNICIAN Work Phone: [facility] Payers Date Payer Category Payer Unknown [id number] 2017 Medicare Social History Date Type Detail Facility Start: 02-18-2023 Tobacco smoking stat us [facility] Never smoked tobacco [facility] Start: 02-18-2023 Tobacco use and exposure Smoke less tobacco non-user [facility] Start: 02-18-2023 Alcohol intake Current drinke r of alcohol (finding) [facility] Start: 02-18-2023 History of Social function [facility] Start: 02-18-[address] [facility] National Score (1-10 0), lower number is lower risk 75 [facility] Start: 10-30-2010 Alcohol Comment [facility] Start: 1945 Sex Assigned At Not on file [facility] Progress note 02-18-2023 Note Date & Type Note Facility 02-18-2023 Note HNO ID: [id number] Author: Rebecca Altamirano APRN.INSTRUCTOR ADJUNCT SURGICAL TECHNICIAN Service: ? Author Type: Nurse Practitioner Type: Progress Notes Filed: 02/18/2023 11:01 AM Note Text: NEW CONSULT OFFICE PROGRESS NOTE Reason for Consultation: PRE DIABETES Referring Physician: SELF My final recommendations will be communicated back to the requesting physician by way of shared Medical record or letter via [place] mail. HISTORY OF PRESENT ILLNESS; Antoine Álvarez is a 77 year old MALE is presenting as a new patient to me regarding prediabetes He was initially diagnosed with diabetes in 10+. Issue with depression for a 'long time' Hx of prostate ca, 2019 - follows regularly with urology Lost weight recently - 6 pounds No appetite change Mood issues MV and zinc, Vit D3 (1000 mcg daily) Saw PCP recently Only A1C Fatigued - goes through periods where feels a bit better with energy but then drops back down Likes his sweets Doesn't like water Drinks a lot of coffee He does have a family history of diabetes mellitus in his Siblings. The patient has no known microvascular complications of diabetes. Antoine has no know macrovascular complications of diabetes.. DM Education No Knows how to carb count No DIETARY HISTORY: Breakfast: at home - cereal w milk OR eggs/toast IF OUT - blueberry pancakes/liu max w several eggs, coffee Lunch apple with PB OR celery with PB OR - eats out - LIU max OR [employer]razilian restaurant OR fast food -burger/fries OR roast beef sandwich Dinner same as lunch split between eating out and cooking at home LIU MAX - if cooking at home meat/potato/salad, but rarely will cook at home any more. Will make salad with mushrooms/zucchini fried Snacks cookies OR anything else sweet, icecream, pastries OR dark chocolate OR peanuts Drinks coffee, diet pop, little water Exercise: elliptical in basement, rowing machine, rides bike outside some weights CURRENT DM MEDS NONE SMBG Type of Monitor: Other Frequency of Monitorin times a day BG Values: Breakfast: 84-143 Lunch: Dinner: 184 Bed-time: Values over past week: Highest ; Lowest Hypoglycemia: none Diet: as per above Exercise: as per above DM REVIEW OF SYSTEMS Last Eye Exam : [facility], normal Last Podiatry Exam: no problems Cardiorespiratory: negative, denies chest pain, pressure Claudication: no Dyslipidemia: Yes, controlled on medication High Blood Pressure: Yes, controlled on medication CURRENT LABS none PAST MEDICAL HISTORY Diagnosis Date BPH (benign prostatic hyperplasia) Depression Diverticulosis of colon (without mention of hemorrhage) Elevated glucose Hyperlipidemia Personal history of colonic polyps PAST SURGICAL HISTORY Procedure Laterality Date COLONOSCOP W/ OR W/O [facility] SPEC 07/15/12 Colonoscopy repeat 5 years PAST SURGICAL HISTORY OF tonsils. PAST SURGICAL HISTORY OF hernia FAMILY HISTORY Problem Relation Age of Onset Heart Mother No Ocular Disease Mother Heart Father CHF No Ocular Disease Father Heart Brother Glaucoma Brother Diabetes Brother Social History Tobacco Use Smoking status: Never Smokeless tobacco: Never Substance Use Topics Alcohol use: Yes Comment: seldom Current Outpatient Medications Medication Sig latanoprost (XALATAN) 0.005 % ophthalmic solution Use 1 Drop in both eyes daily at bedtime. hypromellose (GONAK) 2.5 % ophthalmic solution Use 1 Drop in both eyes as needed. cycloSPORINE (RESTASIS) 0.05 % ophthalmic emulsion Use 1 Drop in both eyes twice daily. lovastatin (MEVACOR) 10 mg tablet Take 2 tablets by mouth daily at bedtime. lisinopril (PRINIVIL) 10 mg tablet Take 1 tablet by mouth once daily. desvenlafaxine ER 50 mg 24 hr tablet Take 1 tablet by mouth once daily. No current facility-administered medications for this visit. ALLERGIES Allergen Reactions Dust Other: See Comments Sneezing, runny nose Dust Mites Other: See Comments Runny nose REVIEW OF SYSTEMS - POSITIVES IN BOLD GENERAL:No weight loss, malaise or fevers HEENT:Negative for frequent or significant headaches, No changes in hearing or vision, no nose bleeds or other nasal problems NECK:Negative for lumps, goiter, pain and significant neck swelling RESPIRATORY: Negative for cough, hemoptysis, wheezing, COPD, dyspnea or shortness of breath CARDIOVASCULAR: Negative for chest pain, leg swelling, hypertension, CHF or palpitations PHYSICAL EXAMINATION: BP 122/72 Pulse 64 Ht 162.6 cm (5' 4 ) Wt 63.8 kg (140 lb 9.6 oz) SpO2 97% BMI 24.13 kg/m? General appearance: Well appearing, alert, in no acute distress, well-hydrated, well nourished. Skin: Skin color, texture, turgor normal, no suspicious rashes or lesions Head: Normocephalic, no masses, lesions, tenderness or abnormalities Eyes: DARREL Neck: thyroid symmetric to inspection Acanthosis: none noted Extremities: Edema: none Neuro: Negative., Oriented X 3 A (more content not included)... [facility] History of Present illness Narrative 02-18-2023 Rebecca Altamirano APRN.INSTRUCTOR ADJUNCT SURGICAL TECHNICIAN - 02/18/2023 10:15 AM EDT Note Date & Type Note Facility 02-18-2023 History of Presen t illness Narrative NEW CONSULT OFFICE PROGRESS NOTE Reason for Consultation: PRE DIABETES Referring Physician: SELF My final recommendations will be communicated back to the requesting physician by way of shared Medical record or letter via [place] mail. HISTORY OF PRESENT ILLNESS; Antoine Álvarez is a 77 year old MALE is presenting as a new patient to me regarding prediabetes He was initially diagnosed with diabetes in 10+. Issue with depression for a 'long time' Hx of prostate 2019 - follows regularly with urology Lost weight recently - 6 pounds No appetite change Mood issues MV and zinc, Vit D3 (1000 mcg daily) Saw PCP recently Only A1C Fatigued - goes through periods where feels a bit better with energy but then drops back down Likes his sweets Doesn't like water Drinks a lot of coffee He does have a family history of diabetes mellitus in his Siblings. The patient has no known microvascular complications of diabetes. Antoine has no know macrovascular complications of diabetes.. DM Education No Knows how to carb count No DIETARY HISTORY: Breakfast: at home - cereal w milk OR eggs/toast IF OUT - blueberry pancakes/liu max w several eggs, coffee Lunch apple with PB OR celery with PB OR - eats out - LIU max OR brazilian restaurant OR fast food -burger/fries OR roast beef sandwich Dinner same as lunch split between eating out and cooking at home LIU MAX - if cooking at home meat/potato/salad, but rarely will cook at home any more. Will make salad with mushrooms/zucchini fried Snacks cookies OR anything else sweet, icecream, pastries OR dark chocolate OR peanuts Drinks coffee, diet pop, little water Exercise: elliptical in basement, rowing machine, rides bike outside some weights CURRENT DM MEDS NONE SMBG Type of Monitor: Other Frequency of Monitorin times a day BG Values: Breakfast: 84-143 Lunch: Dinner: 184 Bed-time: Values over past week: Highest ; Lowest Hypoglycemia: none Diet: as per above Exercise: as per above DM REVIEW OF SYSTEMS Last Eye Exam : [facility], normal Last Podiatry Exam: no problems Cardiorespiratory: negative, denies chest pain, pressure Claudication: no Dyslipidemia: Yes, controlled on medication High Blood Pressure: Yes, controlled on medication CURRENT LABS none PAST MEDICAL HISTORY Diagnosis Date BPH (benign prostatic hyperplasia) Depression Diverticulosis of colon (without mention of hemorrhage) Elevated glucose Hyperlipidemia Personal history of colonic polyps PAST SURGICAL HISTORY Procedure Laterality Date COLONOSCOP W/ OR W/O [facility] SPEC 07/15/12 Colonoscopy repeat 5 years PAST SURGICAL HISTORY OF tonsils. PAST SURGICAL HISTORY OF hernia FAMILY HISTORY Problem Relation Age of Onset Heart Mother No Ocular Disease Mother Heart Father CHF No Ocular Disease Father Heart Brother Glaucoma Brother Diabetes Brother Social History Tobacco Use Smoking status: Never Smokeless tobacco: Never Substance Use Topics Alcohol use: Yes Comment: seldom Current Outpatient Medications Medication Sig latanoprost (XALATAN) 0.005 % ophthalmic solution Use 1 Drop in both eyes daily at bedtime. hypromellose (GONAK) 2.5 % ophthalmic solution Use 1 Drop in both eyes as needed. cycloSPORINE (RESTASIS) 0.05 % ophthalmic emulsion Use 1 Drop in both eyes twice daily. lovastatin (MEVACOR) 10 mg tablet Take 2 tablets by mouth daily at bedtime. lisinopril (PRINIVIL) 10 mg tablet Take 1 tablet by mouth once daily. desvenlafaxine ER 50 mg 24 hr tablet Take 1 tablet by mouth once daily. No current facility-administered medications for this visit. ALLERGIES Allergen Reactions Dust Other: See Comments Sneezing, runny nose Dust Mites Other: See Comments Runny nose REVIEW OF SYSTEMS - POSITIVES IN BOLD GENERAL:No weight loss, malaise or fevers HEENT:Negative for frequent or significant headaches, No changes in hearing or vision, no nose bleeds or other nasal problems NECK:Negative for lumps, goiter, pain and significant neck swelling RESPIRATORY: Negative for cough, hemoptysis, wheezing, COPD, dyspnea or shortness of breath CARDIOVASCULAR: Negative for chest pain, leg swelling, hypertension, CHF or palpitations PHYSICAL EXAMINATION: BP 122/72 Pulse 64 Ht 162.6 cm (5' 4 ) Wt 63.8 kg (140 lb 9.6 oz) SpO2 97% BMI 24.13 kg/m General appearance: Well appearing, alert, in no acute distress, well-hydrated, well nourished. Skin: Skin color, texture, turgor normal, no suspicious rashes or lesions Head: Normocephalic, no masses, lesions, tenderness or abnormalities Eyes: DARREL Neck: thyroid symmetric to inspection Acanthosis: none noted Extremities: Edema: none Neuro: Negative., Oriented X 3 ASSESSMENT: (R73.03) Prediabetes (primary encounter diagnosis) Comment: Patient with higher carb, processed diet, very little to no water intake. Sugars have maintained overall, possible episodes of hypoglycemic reaction discussed nutrition - balanced meals, protein, high fiber complex carbs, good fats and hydration with patient. CONSULT to nutrition offered. No DM medication at this time, would prefer patient sees dietary and modifies his diet Recommend doing labs today as patient has not had full set in a while Hx of prostate ca 2019, pt surgical removal of prostate, does follow regularly with that provider. Await lab results. Recommended diet: Low carbohydrate and Low saturated fat, low simple sugar, high fiber diet Exercise minimally 150 minutes per week, increase as tolerated. Adequate hydration - 1/2 body wgt in oz of water daily, unless fluid restriction applies. I instructed the patient to monitor blood sugars 1 PRE MEAL VARIED times per day If blood sugars are persistently high or low, to call our office. Patient to continue to follow up with his PCP and with other consultants regarding his other medical problems. Plan: COMP METABOLIC PANEL, LIPID PANEL, NONFASTING, ALBUMIN/CREAT RATIO RND UR, HGB A1C, TSH BLD, T4 FREE/FREE THYROX, CBC + DIFF, VITAMIN D 25 HYDROXY, VITAMIN B12 BLOOD, VITAMIN B1 (THIAMINE), WHOLE BLOOD, VITAMIN B6/PYRIDOXIN, IRON + TIBC Rebecca Altamirano CNP documented in this encounter [facility] History of Past illness Narrative 01-24-2011 Note Date & Type Note Facility documented as of this encounter (statuses as of 02/18/2023) [facility] Evaluation note Note Date & Type Note Facility documented in this encounter [facility] Summary Purpose Family History No Family History Records FoundNo Family History Records Found Advance Directives No Advanced Directives Records FoundNo Advanced Directives Records Found Additional Source Comments (unrecognized sect ion and content) No Status Records FoundNo Status Records Found INFORMATION SOURCE (unrecogn ized section and content) DATE CREATED AUTHOR AUTHOR'S REKHA ALDANA 03/05/2023 [facility] Source Comments (unrecognize d section and content) In the event this informatio n is protected by the Federal Confidentiality of Alcohol and Drug Abuse Patient Records regulations: The Federal rules restrict any use of the information to criminally investigate or prosecute any alcohol or drug abuse patient.[facility] Reason for Visit (unrecogniz ed section and content) Care Teams (unrecognized sec tion and content) FOR RECORDS PERTAINING TO PATIENTS WHO ARE OR HAVE BEEN ENROLLED IN A CHEMICAL DEPENDENCY/SUBSTANCEABUSE PROGRAM, SOME INFORMATION MAY BE OMITTED. This clinical summary was aggregated from multiple sources. Caution should be exercised in using it in the provision of clinical care. This summary normalizes information from multiple sources, and as a consequence, information in this document may materially change the coding, format and clinical context of patient data. In addition, data may be omitted in some cases. CLINICAL DECISIONS SHOULD BE BASED ON THE PRIMARY CLINICAL RECORDS. [employer] [facility]. provides no warranty or guarantee of the accuracy or completeness of information in this document.
[2023-06-05 10:25] LABS: Thyroid Stim Hormone (TSH) 1.46 uIU/mL (0.358-3.74)
== END | disposition home or self-care (01) ==
LOC: LAB 09:20
PROVIDERS: PCP Family Medicine; Referring Provider Family Medicine; Visit Provider Family Medicine
DX: R53.83 Other fatigue (principal)
CPT/HCPCS: 36415; 84443

== ENCOUNTER → 2023-11-05 | Outpatient (CLI) | payer MEDICARE, SELFPAY ==
[2023-11-12 00:07] LABS: Testosterone Free 2.2 pg/mL (6.6-18.1)
== END | disposition home or self-care (01) ==
LOC: MTLAB 12:40
PROVIDERS: PCP Family Medicine; Referring Provider Family Medicine; Visit Provider Family Medicine
DX: R53.83 Other fatigue (principal)
CPT/HCPCS: 36415; 84402

== ENCOUNTER → 2023-11-14 | Outpatient (CLI) | payer MEDICARE, SELFPAY | END | disposition home or self-care (01) | LOC: LAB 07:29 | PROVIDERS: PCP Family Medicine; Referring Provider Family Medicine; Visit Provider Family Medicine | DX: E34.9 Endocrine disorder, unspecified (principal) | CPT/HCPCS: 36415; 84403 ==

== ENCOUNTER → 2023-11-17 | Outpatient (CLI) | payer MEDICARE, SELFPAY ==
--- NOTE | 2023-11-17 17:07 | STRESSREP ---
Stress Test Report Exercise stress test. 78-year-old man with a history of chest pain Stress protocol: Resting EKG demonstrates normal sinus rhythm with a rate of 63 bpm resting blood pressure is 118/70 mmHg. The patient exercised according to the regular Travis protocol for a total duration of 9 minutes attaining a maximum heart rate of 139 bpm which was 97% of maximum predicted heart rate; the maximum workload was 10.1 metabolic equivalents. At rest there were no ST or T wave changes noted to suggest ischemia and at peak exercise upsloping ST changes only were noted which did not meet the criteria for ischemia. No clinical angina was noted the test was terminated due to the target heart rate being achieved/fatigue. The peak blood pressure was 160/58 mmHg. Rate-pressure product was 22,000. Conclusion: Stress test with no EKG criteria for ischemia at a high workload. Good functional capacity.
== END | disposition home or self-care (01) ==
PROVIDERS: PCP Family Medicine; Referring Provider Family Medicine; Visit Provider Family Medicine
DX: R07.9 Chest pain, unspecified (principal); F41.9 Anxiety disorder, unspecified
CPT/HCPCS: 93017

== ENCOUNTER → 2023-12-01 | Outpatient (CLI) | payer MEDICARE, SELFPAY ==
--- NOTE | 2023-12-01 16:07 | MRI_ITS ---
INDICATION: UNILAT SENSORINEURAL HEARING LOSS EXAMINATION: MRI - MR Brain WO/W Contrast TECHNIQUE: MRI examination of brain obtained with standard protocol including multiplanar multiecho imaging. Pre and Postcontrast imaging obtained. IV Contrast Dosage and Agent: 13 mL Clariscan Radiation Dose (provided by facility) CTDIvol (NA ) mGy, DLP ( NA) mGy-cm FINDINGS: HEMISPHERES, CEREBELLUM AND BRAINSTEM: 1. The cerebral parenchyma, ventricular system, subarachnoid spaces have normal configuration and density. There is a normal gyral pattern. There is normal casillas/white differentiation. No midline shift.. 2. There is diffuse involutional change, minimal chronic microvascular deep white matter changes are present. 3. No intraparenchymal mass, hemorrhage, or acute territorial infarct. 4. The cerebellum, brainstem, basilar and suprasellar cisterns have normal appearance. No Chiari malformation. 5. No areas of abnormal intraparenchymal or extra-axial contrast enhancement. CP ANGLE AND IAC : 1. Normal appearance the 7th and 8th cranial nerve complexes, IACs and membranous labyrinth. No masses or abnormal enhancement or soft tissue or fluid within the middle ear cavities or mastoid air cells. PITUITARY: Infundibulum and pituitary have normal configuration. Midline structures appear normal. CSF SPACES: Appropriate for age. No hydrocephalus. Basal cisterns are patent. VESSELS: 1. There are normal flow voids noted in the great vessels at the skull base ORBITS AND PARANASAL SINUSES: 1. Both globes, extraocular muscles, optic nerves and retrobulbar fat appear unremarkable. 2. Moderate to extensive ethmoid and frontal sinus disease. Moderate bilateral mastoid air cell disease. BONY ELEMENTS: Bony elements of the cranial vault, facial skeleton and skull base have normal appearance. SCALP AND SOFT TISSUES: Normal appearance of the soft tissues of the scalp and the visualized face OTHER: None MRI/Brain W/WO Contrast IMPRESSION: 1. Mild involutional changes and chronic microvascular deep white matter disease. 2. No intracranial mass, hemorrhage, or acute territorial infarct. 3. No areas of abnormal intraparenchymal or extra-axial contrast enhancement. 4. Normal appearance of the IACs, and membranous labyrinth at, and middle ear cavities. No masses or abnormal enhancement. No abnormal fluid collections. 5. Frontal ethmoid and maxillary sinus disease. Electronically Signed: Aung Harkins MD at 1:03 EDT ,
[2023-12-01 16:41] LABS: CREATININE FINGERSTICK < 1.0 mg/dL (0.70-1.30); EGFR FINGERSTICK > 60.0000 mL/min (>60)
== END | disposition home or self-care (01) ==
LOC: MRI 15:57
PROVIDERS: PCP Family Medicine; Referring Provider Otolaryngology; Visit Provider Otolaryngology
DX: H90.3 Sensorineural hearing loss, bilateral (principal)
CPT/HCPCS: 70553; A9575

== ENCOUNTER → 2023-12-17 | Outpatient (CLI) | payer MEDICARE, SELFPAY ==
[2023-12-17 11:36] LABS: PSA,Total- Diagnostic < 0.01 ng/mL (0.0-4.0)
== END | disposition home or self-care (01) ==
LOC: LAB 09:43
PROVIDERS: PCP Family Medicine; Referring Provider Family Medicine; Visit Provider Urology
DX: C61 Malignant neoplasm of prostate (principal)
CPT/HCPCS: 36415; 84153; 84403

== ENCOUNTER → 2024-03-14 | Outpatient (CLI) | payer MEDICARE, SELFPAY ==
[2024-03-14 07:21] LABS: Absolute Lymphocyte Count 1.41 X10^3/uL (0.83-4.51); Absolute Neutrophil Count 2.5 X10^3/uL (2.0-7.7); Basophil# 0.04 X10^3/uL; Basophil% 0.8 % (0-1); Eosinophil# 0.25 X10^3/uL; Eosinophils% 5.3 % (0-5); Hematocrit 44.7 % (40-54); Hemoglobin 14.2 g/dL (13.0-16.5); Lymphocyte # 1.41 X10^3/ul (0.83-4.51); Lymphocyte % 29.9 % (19-41); Mean Corp Hgb Conc 31.8 g/dL (32-36); Mean Corpuscular Hgb 28.3 pg (27.0-32.0); Mean Platelet Vol. 11.2 fl (6.2-12.0); Monocyte# 0.54 X10^3/uL; Monocyte% 11.5 % (0-10); NRBC Flagged by Analyzer 0 % (0-5); Neutrophil # 2.46 X10^3/uL (2.7-7.7); Neutrophil % 52.3 % (47-70); Platelet Count 186 K/mm3 (150-450); RBC Distribution Width SD 45.1 fl (35.1-43.9); Red Blood Count 5.02 M/mm3 (4.6-6.2); White Blood Count 4.7 K/mm3 (4.4-11.0)
[2024-03-14 08:04] LABS: ALB/GLOB Ratio 1.1 RATIO (0.9-2.4); AST(SGOT) 12 U/L (15-37); Alanine Aminotransfer ALT/SGPT 22 U/L (16-61); Albumin, Serum 3.4 g/dL (3.2-5.0); Alkaline Phosphatase 63 U/L (45-117); Anion Gap 4 (5-15); BUN 15 mg/dL (7-18); BUN/Creat Ratio 13.8 RATIO (10-20); Calcium,Total 9.1 mg/dL (8.5-10.1); Chloride 110 mmol/L (98-107); Creatinine, Serum 1.09 mg/dL (0.70-1.30); EST Glomerular Filtration Rate 69 mL/min (>60); Est Glom Filt Rate - Afr Amer 84 mL/min (>60); Glucose 106 mg/dL (74-106); Potassium 4.1 mmol/L (3.5-5.1); Protein, Total 6.4 g/dL (6.4-8.2); Sodium Level 144 mmol/L (136-145)
[2024-03-14 09:33] LABS: Hemoglobin A1c 6.2 % (3.8-5.6)
== END | disposition home or self-care (01) ==
PROVIDERS: PCP Family Medicine; Referring Provider Family Medicine; Visit Provider Family Medicine
DX: I10 Essential (primary) hypertension (principal); E11.9 Type 2 diabetes mellitus without complications; F32.A Depression, unspecified
CPT/HCPCS: 36415; 80053; 82306; 83036; 85025

== ENCOUNTER → 2024-04-08 | Outpatient (CLI) | payer MEDICARE, SELFPAY ==
--- NOTE | 2024-04-08 07:51 | CT_ITS ---
EXAM: CT ABDOMEN AND PELVIS WITH INTRAVENOUS CONTRAST CLINICAL INDICATION: LEFT LOWER QUADRANT TENDERNESS TECHNIQUE: Helically acquired images were obtained of the abdomen and pelvis with intravenous contrast. This CT exam was performed using one or more of the following dose reduction techniques: automated exposure control, adjustment of the mA and/or kV according to patient size, and/or use of iterative reconstruction technique. CONTRAST: Oral and amp; IV Readi-CAT and amp; 100mL Isovue-300 COMPARISON: No relevant prior studies available. FINDINGS: LOWER THORAX: There is minimal right basilar atelectasis. No cardiomegaly. No significant pericardial effusion. ABDOMEN: LIVER: Unremarkable. Homogeneous. No focal mass. GALLBLADDER AND BILE DUCTS: Unremarkable. No calcified gallstones. No gallbladder distention or wall edema. No intra- or extrahepatic biliary ductal dilation. PANCREAS: Unremarkable. No focal cystic or solid mass. SPLEEN: Unremarkable. Normal size without focal cystic or solid mass. ADRENALS: Unremarkable. No nodules. KIDNEYS AND URETERS: Unremarkable. Normal renal size and position. No hydronephrosis. STOMACH AND BOWEL: Unremarkable. No stomach or bowel distention. No focal inflammatory change. PELVIS: APPENDIX: No evidence of acute appendicitis. BLADDER: There is mild thickening of the wall the urinary bladder which may be due to incomplete distention or cystitis. REPRODUCTIVE: Unremarkable as visualized. No mass. ABDOMEN and PELVIS: INTRAPERITONEAL SPACE: Unremarkable. No ascites or other fluid collection. No free air. BONES/JOINTS: Unremarkable. No suspicious lytic or blastic abnormality. SOFT TISSUES: Unremarkable. No discrete abdominal or pelvic wall hernia. VASCULATURE: Unremarkable. Abdominal aorta is non-dilated. LYMPH NODES: Unremarkable. No enlarged lymph nodes. TUBES, LINES AND DEVICES: There is battery pack over the posterior right pelvis with a lead extending into the right sacrum. CT/Abdomen/Pelvis WITH Contrast IMPRESSION: Minimal thickening of the wall the urinary bladder which may be due to incomplete distention or cystitis. No other acute abnormalities are identified. Electronically Signed: Alistair Ballard MD at 20:22 EST ,
== END | disposition home or self-care (01) ==
LOC: CT 07:47
PROVIDERS: PCP Family Medicine; Referring Provider Family Medicine; Visit Provider Family Medicine
DX: R10.814 Left lower quadrant abdominal tenderness (principal)
CPT/HCPCS: 74177; Q9967

== ENCOUNTER → 2024-08-26 | Outpatient (CLI) | payer MEDICARE, SELFPAY ==
[2024-08-26 08:25] LABS: Absolute Lymphocyte Count 1.47 X10^3/uL (0.83-4.51); Absolute Neutrophil Count 2.8 X10^3/uL (2.0-7.7); Basophil# 0.03 X10^3/uL; Basophil% 0.6 % (0-1); Eosinophil# 0.24 X10^3/uL; Eosinophils% 4.6 % (0-5); Hematocrit 43.8 % (40-54); Hemoglobin 14.4 g/dL (13.0-16.5); Lymphocyte # 1.47 X10^3/ul (0.83-4.51); Lymphocyte % 28.3 % (19-41); Mean Corp Hgb Conc 32.9 g/dL (32-36); Mean Corpuscular Volume 88.3 fL (80-94); Mean Platelet Vol. 11.5 fl (6.2-12.0); Monocyte# 0.61 X10^3/uL; Monocyte% 11.8 % (0-10); NRBC Flagged by Analyzer 0 % (0-5); Neutrophil # 2.83 X10^3/uL (2.7-7.7); Neutrophil % 54.5 % (47-70); Platelet Count 195 K/mm3 (150-450); RBC Distribution Width CV 13.9 % (11.6-14.6); RBC Distribution Width SD 45.2 fl (35.1-43.9); Red Blood Count 4.96 M/mm3 (4.6-6.2); White Blood Count 5.2 K/mm3 (4.4-11.0)
[2024-08-26 10:58] LABS: AST(SGOT) 24 U/L (<=37); Alanine Aminotransfer ALT/SGPT 19 U/L (<=46); Albumin, Serum 4.3 g/dL (3.4-4.8); Alkaline Phosphatase 70 U/L (40-129); Anion Gap 12 (5-15); BUN 17 mg/dL (4-19); BUN/Creat Ratio 14.9 RATIO (10-20); Bilirubin, Direct 0.29 mg/dL (0.00-0.30); Calcium,Total 9.1 mg/dL (7.6-11.0); Carbon Dioxide 25.9 mmol/L (21.0-32.0); Chloride 106 mmol/L (98-108); Creatinine, Serum 1.11 mg/dL (0.70-1.20); EST Glomerular Filtration Rate 68 (>60); Globulin 2.3 g/dL (2.2-4.2); Glucose 102 mg/dL (70-99); Potassium 4.4 mmol/L (3.3-5.1); Protein, Total 6.6 g/dL (5.9-8.4); Sodium Level 143 mmol/L (133-145); Total Bilirubin 0.65 mg/dL (0.00-1.30)
== END | disposition home or self-care (01) ==
LOC: LAB 06:49
PROVIDERS: PCP Family Medicine; Referring Provider Physician Assistant; Visit Provider Physician Assistant
DX: L57.0 Actinic keratosis (principal); L29.9 Pruritus, unspecified; D22.5 Melanocytic nevi of trunk; L30.9 Dermatitis, unspecified; Z79.899 Other long term (current) drug therapy
CPT/HCPCS: 36415; 80048; 80076; 84439; 84443; 85025

== ENCOUNTER → 2025-04-20 | Outpatient (CLI) | payer MEDICARE, SELFPAY ==
--- OUTSIDE RECORDS SUMMARY | 2025-04-20 06:31 | XMS RPT_ITS | CCD ---
Author Organization [facility] Care Team Providers Care Flue Cleaner Name Role Phone Compa Luo Unavailable Unavailable Compa Luo Unavailable Unavailable Stevie Cerna Unavailable Unavailable Dr. Compa Urbano Referring Provider Dr. Ruby Peter Primary Care Provider Dr. Ruby Peter Attending Provider 1([facility]) Dr. Ruby Peter Referring Provider 1([facility]) Dr. Ruby Peter Other Provider 1([facility])[phone] Garfield Cat Attending Provider Pia Hoyos Attending Provider Unavailable Dr. Ruby Peter Primary Care Provider Dr. Ruby Peter Attending Provider 1([phone]) Dr. Ruby Peter Primary Care Provider Dr. Ruby Peter Attending Provider 1([facility]) Dr. Ruby Peter Primary Care Provider Dr. Ruby Peter Attending Provider [phone]) Dr. Ruby Peter Primary Care Provider Dr. Ruby Peter Attending Provider 1([facility]) Ruby Peter MD Primary Care Provider [phone] [phone] DEB MONTILLA Referring Unavailable RUBY PETER Primary Care Unavailable DEB MONTILLA Attending Unavailable RUBY PETER Primary Care Unavailable Dr. Ruby Peter Primary Care Provider Dr. Ruby Peter Attending Provider Clarita, Chalon Primary Care Unavailable Clarita, Chalon Attending Unavailable Clarita, Chalon Referring Unavailable Clarita, Chalon Attending Unavailable Clarita, Chalon Referring Unavailable Clarita, Chalon Primary Care Unavailable Park, Lary Attending Unavailable Park, Lary Referring Unavailable Clarita, Chalon Primary Care Unavailable Clarita, Chalon Primary Care Unavailable Clarita, Chalon Attending Unavailable Clarita, Chalon Referring Unavailable Clarita, Chalon Primary Care Unavailable Clarita, Chalon Attending Unavailable Clarita, Chalon Referring Unavailable Clarita, Chalon Primary Care Unavailable Clarita, Chalon Attending Unavailable Clarita, Chalon Referring Unavailable Clarita, Chalon Primary Care Unavailable Lewis Julian Attending Unavailable Eliel, Lewis Referring Unavailable Ovalle, Leann Attending Unavailable Clarita, Chalon Primary Care Unavailable Ovalle, Leann Attending Unavailable Clarita, Chalon Primary Care Unavailable Garfield Cat Attending Unavailable Clarita, Chalon Primary Care Unavailable Clarita, Chalon Consulting Unavailable Clarita, Chalon Referring Unavailable Clarita, Chalon Primary Care Unavailable Capo Mccullough Attending Unavailable Clarita, Chalon Referring Unavailable Allergies Allergy Classification Reported Allergen(s) Allergy Type Date of Onset Reaction(s) Facility (4 sources) Environmental Allergies: Uncoded; Translations: [Environmental Allergies: Uncoded] Allergy to substance 2 Other [facility] (2 sources) Dust; Translations: [DUST] Allergy to substance 2 Other: See Comments [facility] (2 sources) House dust mite; Translations: [DUST MITES] Allergy to substance 4 Other: See Comments [facility] Medications Current Medications Medication Drug Class(es) Dates Sig (Normalized) Sig (Original) glucometer (2 sources) Start: 12-31-2022 glucometer Act angle 0 .Route .MEDSUPPLY December 31, 2022 11:23am Embrace Pro Brand test twice daily as needed as directed Start: 12-23-2022 End: 12-31-2022 glucometer Discontinued 0 .R oute .MEDSUPPLY December 22, 2022 11:00pm December 31, 2022 11:24am Embrace Pro Brand as directed ipratropium bromide 0.2 mg/ml inhalation solution (12 sources) Anticholinergic Start: 09-11-2021 take 1 mL by inhalation every six hours Ipratropium [place] Active 2.5 ML INHALATION EVERY 6 HOURS September 10, 2021 11:00pm Start: 11-02-2019 End: 03-28-2021 Ipratropium [place] Disconti nued 2 SPRAY NASAL TWICE A DAY November 01, 2019 11:00pm March 28, 2021 9:22am isopropyl alcohol 0.7 ml/ml medicated pad (2 sources) Start: 12-23-2022 End: 12-31-2022 Alcohol Swabs Active 1 PAD TOPICAL TWICE A DAY December 31, 2022 11:23am latanoprost 0.05 mg/ml ophthalmic solution (13 sources) Prostaglandin Analog Start: 09-11-[address] Active 1 DRP EACH EYE EVERY EVENING September 10, 2021 11:00pm Start: 05-03-2016 End: 03-28-2021 Latanoprost Discontinued 1 D RP EACH EYE AT BEDTIME November 01, 2019 11:00pm March 28, 2021 9:22am Comment on above: Use 1 Drop in both e yes daily at bedtime. lisinopril 10 mg oral tablet (20 sources) Angiotensin Converting Enzyme Inhibitor Start: End: take 5 mg by mouth at bedtime Lisinopril Discontinued 5 MG PO AT BEDTIME June 29, 2018 12:00am March 28, 2021 9:22am Start: 11-08-2013 End: 11-18-2022 take 10 mg by mouth once daily Lisinopril Active 10 MG PO DAILY November 18, 2022 7:35pm Comment on above: Take 1 tablet by jacoby th once daily. lovastatin 20 mg oral tablet (20 sources) HMG-CoA Reductase Inhibitor Start: 09-05-2021 End: 11-18-2022 take 20 mg by mouth once daily Lovastatin Active 20 MG PO DAILY November 18, 2022 7:35pm Start: 04-01-2021 End: 09-05-2021 take 20 mg by mouth once daily Lovastatin Discontinued 20 MG PO DAILY 180 September 05, 2021 7:12am September 05, 2021 12:51pm Start: 04-28-2018 End: 04-01-2021 take 10 mg by mouth once daily Lovastatin Discontinued 10 MG PO DAILY April 28, 2018 12:00am April 01, 2021 8:18am Start: 03-17-2014 take 2 tablets by mo uth once daily at bedtime lovastatin (MEVACOR) 10 mg tablet Take 2 tablets by mouth daily at bedtime. 90 tablet 0 03/17/2014 Active Comment on above: Take 2 tablets by mo uth daily at bedtime. sertraline 50 mg oral tablet (2 sources) Serotonin Reuptake Inhibitor Start: 12-22-2022 Sertraline Active 25 MG PO December 22, 2022 12:08pm Start: 12-22-2022 End: 12-22-2022 Sertraline Discontinued MG P O December 21, 2022 11:00pm December 22, 2022 12:08pm Completed/Discontinued Medications Medication Drug Class(es) Dates Sig (Normalized) Sig (Original) acetaminophen 325 mg / HYDROcodone bitartrate 5 mg oral tablet (6 sources) Opioid Agonist Start: 11-09-2019 End: 11-14-2019 Hydrocodone-Acetam inophen Discontinued 1 EACH PO EVERY 4 HOURS NEEDED 14 November 09, 2019 November 13, 2019 11:02pm acetaminophen 325 mg / oxyCODONE hydrochloride 5 mg oral tablet (6 sources) Opioid Agonist Start: 09-18-2021 End: 05-08-2022 take 1 tablet by mouth every six hours Oxycodone-Acetamin ophen Discontinued 1 TABLET PO EVERY 6 HOURS 14 September 18, 2021 May 08, 2022 8:11am ascorbic acid 500 mg oral capsule (6 sources) Vitamin C Start: 06-21-2019 End: 03-28-2021 take 500 mg by mouth once daily Ascorbic Acid (Vitamin C) Discontinued 500 MG PO DAILY June 21, 2019 12:00am March 28, 2021 9:21am cephalexin 500 mg oral capsule (6 sources) Cephalosporin Antibacterial Start: 10-09-2021 End: 01-30-2022 take 500 mg by mouth twice daily Cephalexin Discontinued 500 MG PO TWICE A DAY October 08, 2021 11:00pm January 30, 2022 1:10pm Start: 09-18-2021 take 500 mg by mouth every eight hours Cephalexin Active 500 MG PO Q8H September 18, 2021 2:06pm ciprofloxacin 500 mg oral tablet (6 sources) Quinolone Antimicrobial Start: 11-09-2019 End: 04-01-2021 take 500 mg by mouth twice daily Ciprofloxacin Hcl Discontinued 500 MG PO TWICE A DAY November 08, 2019 11:00pm April 01, 2021 8:18am cycloSPORINE 0.5 mg/ml ophthalmic suspension (1 source) Calcineurin Inhibitor Immunosuppressant Start: 05-12-2014 take 1 drop(s) into the eye(s) twice daily cycloSPORINE (RESTASIS) 0.05 % ophthalmic emulsion Use 1 Drop in both eyes twice daily. 60 Vial 5 05/12/2014 Active Comment on above: Use 1 Drop in both e yes twice daily. 24 hr desvenlafaxine succinate 50 mg extended release oral tablet (7 sources) Serotonin and Norepinephrine Reuptake Inhibitor Start: 11-02-2019 End: 03-28-2021 take 50 mg by mouth at bedtime Desvenlafaxine Succinate Discontinued 50 MG PO AT BEDTIME November 01, 2019 11:00pm March 28, 2021 9:21am Start: 09-06-2013 take 1 tablet by jacoby th once daily desvenlafaxine ER 50 mg 24 hr tablet Take 1 tablet by mouth once daily. 90 tablet 3 09/06/2013 Active Comment on above: Take 1 tablet by jacoby th once daily. docusate sodium 100 mg oral capsule (6 sources) Start: 0 End: 1 take 100 mg by mouth twice daily Docusate Sodium Discontinued 100 MG PO TWICE A DAY November 08, 2019 11:00pm April 01, 2021 8:18am DULoxetine 60 mg delayed release oral capsule (12 sources) Serotonin and Norepinephrine Reuptake Inhibitor Start: 2 End: 3 Duloxetine (Cymbalta) 60 mg capsule,delayed release(DR/EC) Discontinued 30 MG PO DAILY May 08, 2022 8:10am October 23, 2022 7:01am Start: 05-08-2022 End: 12-22-2022 take 30 mg by mouth once daily Duloxetine Discontinued 30 MG PO DAILY May 08, 2022 12:00am December 22, 2022 12:06pm Start: 03-28-2021 End: 05-08-2022 take 1 capsule by mouth once daily Duloxetine (Cymbalta) 60 mg capsule,delayed release(DR/EC) Discontinued 60 MG PO DAILY March 27, 2021 11:00pm May 08, 2022 8:11am hypromellose 25 mg/ml ophthalmic solution (1 source) hypromellose (GONAK) 2.5 % ophthalmic solution Use 1 Drop in both eyes as needed. 0 Active Comment on above: Use 1 Drop in both e yes as needed. lamoTRIgine 100 mg oral tablet (6 sources) Mood Stabilizer, Anti-epileptic Agent Start: 06-21-19 End: 03-28-20 take 150 mg by mouth at bedtime Lamotrigine Discontinued 150 MG PO AT BEDTIME June 21, 2019 12:00am March 28, 2021 9:22am metFORMIN hydrochloride 500 mg oral tablet (12 sources) Biguanide Start: 07-07-19 End: 06-21-19 take 500 mg by mouth once daily Metformin Discontinued 500 MG PO DAILY July 08, 2018 7:54am June 21, 2019 2:47pm 24 hr metoprolol succinate 25 mg extended release oral tablet (6 sources) beta-Adrenergic Salvador Start: 07-03-19 End: 07-03-19 take 25 mg by mouth once daily Metoprolol Succinate Discontinued 25 MG PO DAILY July 03, 2021 12:00am July 03, 2021 1:37pm Nirmatrelvir-Ritonavi r (1 source) Start: 08-07-19 End: 10-24-19 Nirmatrelvir-Ritona vir (Paxlovid (Eua)) 300 mg (150 mg x 2)-100 mg tablets,dose pack Discontinued 0 PO .COMPLEX August 06, 2022 12:00am October 23, 2022 7:01am take TWO 150 mg tablets of nirmatrelvir with ONE 100 mg tablet of ritonavir twice daily for 5 days PO prednisoLONE acetate 10 mg/ml ophthalmic suspension (6 sources) Corticosteroid Start: 09-12-19 End: 05-08-20 Prednisolone Acetate Discontinued 2 DRP EACH EYE TWICE A DAY September 10, 2021 11:00pm May 08, 2022 8:11am Problems Active Problems Problem Classification Problem Date Documented Da te Episodic/Chronic Anxiety disorders (16 sources) Mixed anxiety and depressive disorder; Translations: [Anxiety disorder, unspecified] Onset: 08-04-2024 Chronic Cancer of prostate (9 sources) Malignant tumor of prostate; Translations: [Malignant neoplasm of prostate] Onset: 12-30-2023 Chronic Cataract (6 sources) Bilateral cataracts; Translations: [Unspecified cataract] 11-09-2019 Chronic Conditions associated with dizziness or vertigo (6 sources) Dizziness; Translations: [Dizziness and giddiness] Episodic Diabetes mellitus with complications (7 sources) Type II diabetes mellitus uncontrolled; Translations: [Uncontrolled type 2 diabetes mellitus] Onset: 02-18-2023 07-01-2018 Chronic Diabetes mellitus without complication (3 sources) Prediabetes; Translations: [Prediabetes] Onset: 11-13-2011 02-18-2023 Episodic Disorders of lipid metabolism (13 sources) Hyperlipidemia; Translations: [Hyperlipidemia, unspecified] Onset: 11-13-2011 Chronic Disorders usually diagnosed in infancy, childhood, or adolescence (1 source) Tic; Translations: [Tic disorder, unspecified] Onset: 05-12-2014 05-12-2014 Chronic Diverticulosis and diverticulitis (1 source) Diverticular disease; Translations: [Diverticulosis of intestine, part unspecified, without perforation or abscess without bleeding] Onset: 07-06-2012 07-06-2012 Chronic Essential hypertension (14 sources) Hypertensive disorder; Translations: [Essential (primary) hypertension] Onset: 07-29-2013 Chronic Genitourinary symptoms and ill-defined conditions (6 sources) Urge incontinence of urine; Translations: [Urge incontinence] 09-18-2021 Chronic Glaucoma (6 sources) Glaucoma; Translations: [Unspecified glaucoma] 11-09-2019 Chronic Headache; including migraine (6 sources) Chronic headache disorder; Translations: [Chronic headache] 11-09-2019 Episodic Hyperplasia of prostate (1 source) Benign prostatic hyperplasia; Translations: [Benign prostatic hyperplasia without lower urinary tract symptoms] Onset: 11-13-2011 11-13-2011 Chronic Immunizations and screening for infectious disease (2 sources) Needs influenza immunization; Translations: [Encounter for immunization] 03-16-2023 Episodic Malaise and fatigue (10 sources) Malaise and fatigue; Translations: [Chronic fatigue, unspecified] Chronic Mood disorders (1 source) Depressive disorder; Translations: [Other specified depressive episodes] Onset: 04-21-2013 04-21-2013 Chronic Mood disorders (1 source) Mood disorders; Translations: [Depression, unspecified] Onset: 08-04-2024 Osteoarthritis (6 sources) Arthritis; Translations: [Unspecified osteoarthritis, unspecified site] 11-09-2019 Chronic Other ear and sense organ disorders (1 source) Sensorineural hearing loss, bilateral; Translations: [Sensorineural hearing loss, bilateral] Onset: 12-11-2023 Chronic Other gastrointestinal disorders (1 source) Finding of abdomen; Translations: [Other specified symptoms and signs involving the digestive system and abdomen] 02-19-2023 Episodic Other gastrointestinal disorders (1 source) Other specified symptoms and signs involving the digestive system and abdomen; Translations: [Other symptoms involving abdomen and pelvis] 02-19-2023 Episodic Other inflammatory condition of skin (1 source) Pruritus, unspecified; Translations: [Pruritus, unspecified] Onset: 08-31-2024 Episodic Other lower respiratory disease (6 sources) Dyspnea on exertion; Translations: [Dyspnea, unspecified] 06-05-2021 Episodic Other lower respiratory disease (1 source) Dyspnea, unspecified; Translations: [Other respiratory abnormalities] Episodic Other nervous system disorders (2 sources) Impairment of balance; Translations: [Other abnormalities of gait and mobility] 06-19-2022 Episodic Other nervous system disorders (1 source) Other abnormalities of gait and mobility; Translations: [Abnormality of gait] 06-19-2022 Episodic Other upper respiratory disease (6 sources) Seasonal allergy; Translations: [Other seasonal allergic rhinitis] 11-09-2019 Chronic Residual codes; unclassified (6 sources) Sleep apnea; Translations: [Sleep apnea, unspecified] 04-01-2021 Chronic Residual codes; unclassified (2 sources) Sleep apnea, unspecified; Translations: [Unspecified sleep apnea] Chronic Residual codes; unclassified (6 sources) History of colonoscopy; Translations: [Other specified postprocedural states] 11-09-2019 Episodic Residual codes; unclassified (2 sources) Other specified postprocedural states; Translations: [Other postprocedural status] Episodic Unclassified (6 sources) Mass of body structure; Translations: [Mass] 06-21-2019 Unclassified (6 sources) Further opinion sought; Translations: [Patient requests second opinion] 04-01-2021 Past or Other Problems Problem Classification Problem Date Documented Da te Episodic/Chronic Abdominal pain (1 source) Left lower quadrant abdominal tenderness; Translations: [Left lower quadrant abdominal tenderness] Onset: 04-21-2024 Episodic Allergic reactions (1 source) Solar degeneration; Translations: [Other skin changes due to chronic exposure to nonionizing radiation] Onset: 08-17-2012 08-17-2012 Episodic Hemorrhoids (1 source) Internal hemorrhoids; Translations: [Other hemorrhoids] Onset: 07-06-2012 07-06-2012 Episodic Malaise and fatigue (10 sources) Tired; Translations: [Other fatigue] Onset: 11-13-2011 Episodic Nonspecific chest pain (2 sources) Chest pain, unspecified; Translations: [Chest pain, unspecified] Onset: 12-02-2023 Episodic Other and unspecified benign neoplasm (1 [...] including shoulder] Onset: 10-07-2013 10-07-2013 Episodic Other endocrine disorders (1 source) Endocrine disorder, unspecified; Translations: [Endocrine disorder, unspecified] Onset: 11-20-2023 Episodic Other eye disorders (1 source) Tear [...] Results Test Name Value Interpretation Reference Range Facility Basic Metabolic Profile (BMP )on 08-26-2024 BUN/CRE 14.9 RATIO Normal 10-20 [facility] Comment on above: Performed By: #### L 100.0100, L506.0400, L501.9520, L500.3400, L500.2500 ####[facility] [address] [place], [address] Calcium [Mass/Vol] 9.1 mg/dL Normal 7.6-11.0 [facility] Comment on above: Performed By: #### L 100.0100, L506.0400, L501.9520, L500.3400, L500.2500 ####[facility] [address] [place], [address] Chloride [Moles/Vol] 106 mmol/L Normal 98-108 [facility] Comment on above: Performed By: #### L 100.0100, L506.0400, L501.9520, L500.3400, L500.2500 ####[facility] [address] [place], [address] CO2 [Moles/Vol] 25.9 mmol/L Normal 21.0-32.0 [facility] Comment on above: Performed By: #### L 100.0100, L506.0400, L501.9520, L500.3400, L500.2500 ####[facility] [address] [place], [address] Creatinine [Mass/Vol] 1.11 mg/dL Normal 0.70-1.20 [facility] Comment on above: Performed By: #### L 100.0100, L506.0400, L501.9520, L500.3400, L500.2500 ####[facility] [address] [place], [address] GAP 12 Normal 5-15 [facility] Comment on above: Performed By: #### L 100.0100, L506.0400, L501.9520, L500.3400, L500.2500 ####[facility] [address] [place], [address] GFR/1.73 sq M.predicted among non-blacks MDRD (S/P/Bld) [Vol rate/Area] 68 mL/min/{1.73_m2} Normal >60 [facility] Comment on above: Result Comment: mL/m in/1.73m2 CKD-EPI Creatinine Equation (2020) Performed By: #### L 100.0100, L506.0400, L501.9520, L500.3400, L500.2500 ####[facility] [address] [place], [address] Glucose [Mass/Vol] 102 mg/dL High 70-99 [facility] Comment on above: Performed By: #### L 100.0100, L506.0400, L501.9520, L500.3400, L500.2500 ####[facility] [address] [place], [address] Potassium [Moles/Vol] 4.4 mmol/L Normal 3.3-5.1 [facility] Comment on above: Performed By: #### L 100.0100, L506.0400, L501.9520, L500.3400, L500.2500 ####[facility] [address] [place], [address] Sodium [Moles/Vol] 143 mmol/L Normal 133-145 [facility] Comment on above: Performed By: #### L 100.0100, L506.0400, L501.9520, L500.3400, L500.2500 ####[facility] [address] [place], [address] Urea nitrogen [Mass/Vol] 17 mg/dL Normal 4-19 [facility] Comment on above: Performed By: #### L 100.0100, L506.0400, L501.9520, L500.3400, L500.2500 ####[facility] [address] [place], [address] CBC W/Diff, Automatedon 07-31 Absolute Lymph 1.47 X10 3/uL Normal 0.83-4.51 [facility] Comment on above: Performed By: #### L 100.0100, L506.0400, L501.9520, L500.3400, L500.2500 ####[facility] [address] [place], [address] Absolute Neut 2.8 X10 3/uL Normal 2.0-7.7 [facility] Comment on above: Performed By: #### L 100.0100, L506.0400, L501.9520, L500.3400, L500.2500 ####[facility] [address] [place], [address] Basophils/100 WBC (Bld) 0.6 % Normal 0-1 [facility] Comment on above: Performed By: #### L 100.0100, L506.0400, L501.9520, L500.3400, L500.2500 ####[facility] [address] [place], [address] Eosinophils/100 WBC (Bld) 4.6 % Normal 0-5 [facility] Comment on above: Performed By: #### L 100.0100, L506.0400, L501.9520, L500.3400, L500.2500 ####[facility] [address] [place], [address] Erythrocyte distribution width (RBC) [Ratio] 13.9 % Normal 11.6-14.6 [facility] Comment on above: Performed By: #### L 100.0100, L506.0400, L501.9520, L500.3400, L500.2500 ####[facility] [address] [place], [address] Hematocrit (Bld) [Volume fraction] 43.8 % Normal 40-54 [facility] Comment on above: Performed By: #### L 100.0100, L506.0400, L501.9520, L500.3400, L500.2500 ####[facility] [address] [place], [address] Hemoglobin (Bld) [Mass/Vol] 14.4 g/dL Normal 13.0-16.5 [facility] Comment on above: Performed By: #### L 100.0100, L506.0400, L501.9520, L500.3400, L500.2500 ####[facility] [address] [place], [address] IG% 0.200 Normal 0.0-0.9 [facility] Comment on above: Result Comment: IG% - Immature Granulocytes (promyelocytes, myelocytes and metamyelocytes) > 1% indicates that a LEFT SHIFT is Present. Performed By: #### L 100.0100, L506.0400, L501.9520, L500.3400, L500.2500 ####[facility] [address] [place], [address] Lymphocytes/100 WBC (Bld) 28.3 % Normal 19-41 [facility] Comment on above: Performed By: #### L 100.0100, L506.0400, L501.9520, L500.3400, L500.2500 ####[facility] [address] [place], [address] MCH (RBC) [Entitic mass] 29.0 pg Normal 27.0-32.0 [facility] Comment on above: Performed By: #### L 100.0100, L506.0400, L501.9520, L500.3400, L500.2500 ####[facility] [address] [place], [address] MCHC (RBC) [Mass/Vol] 32.9 g/dL Normal 32-36 [facility] Comment on above: Performed By: #### L 100.0100, L506.0400, L501.9520, L500.3400, L500.2500 ####[facility] [address] [place], [address] MCV (RBC) [Entitic vol] 88.3 fL Normal 80-94 [facility] Comment on above: Performed By: #### L 100.0100, L506.0400, L501.9520, L500.3400, L500.2500 ####[facility] [address] [place], [address] Monocytes/100 WBC (Bld) 11.8 % High 0-10 [facility] Comment on above: Performed By: #### L 100.0100, L506.0400, L501.9520, L500.3400, L500.2500 ####[facility] [address] [place], [address] Neutrophils/100 WBC (Bld) 54.5 % Normal 47-70 [facility] Comment on above: Performed By: #### L 100.0100, L506.0400, L501.9520, L500.3400, L500.2500 ####[facility] [address] [place], [address] Nucleated RBC (Bld) [#/Vol] 0 10*3/uL Normal 0-5 [facility] Comment on above: Performed By: #### L 100.0100, L506.0400, L501.9520, L500.3400, L500.2500 ####[facility] [address] [place], [address] Platelet mean volume (Bld) [Entitic vol] 11.5 fL Normal 6.2-12.0 [facility] Comment on above: Performed By: #### L 100.0100, L506.0400, L501.9520, L500.3400, L500.2500 ####[facility] [address] [place], [address] Platelets (Bld) [#/Vol] 195 10*3/uL Normal 150-450 [facility] Comment on above: Performed By: #### L 100.0100, L506.0400, L501.9520, L500.3400, L500.2500 ####[facility] [address] [place], [address] RBC (Bld) [#/Vol] 4.96 10*6/uL Normal 4.6-6.[address] [facility] Comment on above: Performed By: #### L 100.0100, L506.0400, L501.9520, L500.3400, L500.2500 ####[facility] [address] [place], [address] RDW SD 45.2 fl High 35.1-43.9 [facility] Comment on above: Performed By: #### L 100.0100, L506.0400, L501.9520, L500.3400, L500.2500 ####[facility] [address] [place], [address] WBC (Bld) [#/Vol] 5.2 10*3/uL Normal 4.4-11.0 [facility] Comment on above: Performed By: #### L 100.0100, L506.0400, L501.9520, L500.3400, L500.2500 ####[facility] [address] [place], [address] Liver Profileon 08-26-2024 Albumin [Mass/Vol] 4.3 g/dL Normal 3.4-4.8 [facility] Comment on above: Performed By: #### L 100.0100, L506.0400, L501.9520, L500.3400, L500.2500 ####[facility] [address] [place], [address] ALK PHOS 70 U/L Normal 40-129 [facility] Comment on above: Performed By: #### L 100.0100, L506.0400, L501.9520, L500.3400, L500.2500 ####[facility] [address] [place], [address] ALT [Catalytic activity/Vol] 19 U/L Normal <=46 [facility] Comment on above: Performed By: #### L 100.0100, L506.0400, L501.9520, L500.3400, L500.2500 ####[facility] [id number] [place], [address] AST [Catalytic activity/Vol] 24 U/L Normal <=37 [facility] Comment on above: Performed By: #### L 100.0100, L506.0400, L501.9520, L500.3400, L500.2500 ####[facility] [address] [place], [address] Bilirubin [Mass/Vol] 0.65 mg/dL Normal 0.00-1.30 [facility] Comment on above: Performed By: #### L 100.0100, L506.0400, L501.9520, L500.3400, L500.2500 ####[facility] [address] [place], [address] Bilirubin.direct [Mass/Vol] 0.29 mg/dL Normal 0.00-0.30 [facility] Comment on above: Performed By: #### L 100.0100, L506.0400, L501.9520, L500.3400, L500.2500 ####[facility] [address] [place], [address] Globulin (S) [Mass/Vol] 2.3 g/dL Normal 2.2-4.2 [facility] Comment on above: Performed By: #### L 100.0100, L506.0400, L501.9520, L500.3400, L500.2500 ####[facility] [address] [place], [address] T PROT 6.6 g/dL Normal 5.9-8.4 [facility] Comment on above: Performed By: #### L 100.0100, L506.0400, L501.9520, L500.3400, L500.2500 ####[facility] [address] [place], [address] T4 Free Directon 08-26-2024 T4 FREE DIRECT 1.00 ng/dL Normal 0.76-1.46 [facility] Comment on above: Performed By: #### L 100.0100, L506.0400, L501.9520, L500.3400, L500.2500 ####[facility] [address] [place], [address] Thyroid Stim Hormone (TSH)on 08-26-2024 TSH 1.540 uIU/mL Normal 0.300-4.200 [facility] Comment on above: Performed By: #### L 100.0100, L506.0400, L501.9520, L500.3400, L500.2500 ####[facility] [address] [place], [address] MR/BMS.BPon 08-04-2024 MR/BMS.BP [facility] [address] [facility], [address] [place] [address] OFFICE VISIT Date of Service: 08/04/24 MR#: [id number] Acct: [id number] Name: VENESSA ÁLVAREZ Rep #: [id number] : 1945 Provider: LAMONTE razo Age/Sex: 79/M Location: [facility].BP Status: Signed Intake Vital Signs 09/29/23 07:21 08/04/24 09:14 Height 5 ft 5 in 5 ft 5 in Weight: 143 lb BMI 23.8 BP 120/86 H Blood Pressure Location Lt brachial Position Sitting Respiration 16 Pulse 64 Pulse Source Monitor BP Intake Visit Reasons: med check/follow up Accompanied by: Self Allergies Environmental Allergies: Uncoded Allergy (Intermediate, Verified 08/04/24 09:17) Other Medications ???Medication ???Instructions ???Recorded ???Confirmed ???Type ipratropium bromide 0.02 % 2.5 ml inhalation Q6H PRN ALLERIES 09/11/21 08/04/24 History solution for inhalation latanoprost 0.005 % eye drops 1 drp EACH EYE QPM 09/11/21 History lovastatin 20 mg tablet 20 mg PO DAILY #90 tabs 11/18/22 0 08/04/24 Rx blood sugar diagnostic (Embrace #50 ea 12/31/22 08/04/24 Rx PRO test strips) glucometer #1 ea 12/31/22 08/04/24 Rx lancets 30 gauge (Embrace Lancets) #100 ea 12/31/22 08/04/24 Rx ascorbic acid (vitamin C) 100 mg 100 mg PO QDAY 08/04/24 08/04/24 H istory tablet buspirone 10 mg tablet mg PO 08/04/24 08/04/24 History buspirone 7.5 mg tablet mg PO 08/04/24 08/04/24 History cholecalciferol (vitamin D3) 10 10 mcg PO QDAY 08/04/24 08/04/24 H istory mcg (400 unit) capsule escitalopram oxalate 20 mg tablet 20 mg PO QAM 08/04/24 08/04/24 Hi story risperidone 0.25 mg tablet mg PO 08/04/24 08/04/24 History zinc citrate, zinc oxide 50 mg mg PO 08/04/24 08/04/24 History tablet Have you fallen in the past year?: No PFSH Medical History (Updated 09/29/23 @ 08:35 by LAMONTE Akins) Depression Anxiety COVID Hx of bladder problems Wears glasses Wears partial dentures Diabetes Bladder disease Back pain Dietary restriction Non-smoker CPAP (continuous positive airway pressure) dependence Aneurysm of aorta History of stress test Hyperlipemia Mass Prostate cancer HTN (hypertension) Chronic headaches Glaucoma Cataracts, bilateral Arthritis Anxiety and depression Seasonal allergies Surgical History Hx of right cataract extraction History of prostate surgery Hx of colonoscopy History of tonsillectomy and adenoidectomy Hx of bilateral inguinal hernia repair Family History Unknown Arthritis Diabetes Heart disease Hypertension Mother Arthritis Heart disease Hypertension Father Heart disease Hypertension Depression Brother Diabetes Social History Smoking Status: Never smoker alcohol intake: never substance use type: does not use caffeine: Yes what type of physical activity do you participate in: bicycling and weight training frequency: 5-6 times per week HPI History of Present Illness History provided by: patient HPI: Venessa Álvarez is a 79 year old male patient presenting today for a follow up evaluation. Patient presents today with concerns of having increased feelings of depression and anxiety that have not improved in the way he has hoped. Is still seeing a nurse practitioner at the counseling center and is looking for a second opinion. Has been on escitalopram for a couple of months. Buspirone and risperidone are newer additions. Reports he has been feeling more irritable and agitated lately. Admits to feelings of depression daily, to some extent. Does feel mood has been fluctuating throughout the day and will start out low but will improve with time. Is struggling with finding tammy in things and spending time with others. Denies SI/HI. Admits to feelings of anxiety and has started taking buspirone last night and is hoping he does well with this. Sleep has been good and is getting about 9 hours per night and napping in the afternoon. Appetite has been fine. Previous similar episode: Yes Age of first onset of symptoms: 11-20 years Review of Systems Constitutional Denies: fever(s), chills or fatigue Eyes Denies: change in vision or blurry vision Ears, Nose, Mouth, Throat Denies: throat pain or neck pain Cardiovascular Reports: chest pain (associated with anxiety); Denies: palpitations or dyspnea Respiratory Denies: dyspnea or wheezing Gastrointestinal Reports: nausea and heartburn (infrequent ); Denies: abdominal pain, vomiting, diarrhea or constipation Genitourinary Reports: urinary frequency; Denies: dysuria or urinary urgency Musculoskeletal Reports: back pain and joint pain; Denies: neck pain Integumentary/Mercedes (more content not included)... Normal [facility] Abdomen/Pelvis WITH Contrast on 04-08-2024 Abdomen/Pelvis WITH Contrast [facility] [address] [place] [address] Abdomen/Pelvis WITH Contrast MR#: [id number] Acct: [id number] Name: VENESSA ÁLVAREZ Rep #: [id number] : 1945 79 From: Alistair Ballard MD PCP: Dr. Lydia Simms MD Status: REG CLI Study: Abdomen/Pelvis WITH Contrast Date of Exam: 01/22 Exam# [id number] Ordering Dr: Lydia Simms MD [id number] EXAM: CT ABDOMEN AND PELVIS WITH INTRAVENOUS CONTRAST CLINICAL INDICATION: LEFT LOWER QUADRANT TENDERNESS TECHNIQUE: Helically acquired images were obtained of the abdomen and pelvis with intravenous contrast. This CT exam was performed using one or more of the following dose reduction techniques: automated exposure control, adjustment of the mA and/or kV according to patient size, and/or use of iterative reconstruction technique. CONTRAST: Oral and amp; IV Readi-CAT and amp; 100mL Isovue-300 COMPARISON: No relevant prior studies available. FINDINGS: LOWER THORAX: There is minimal right basilar atelectasis. No cardiomegaly. No significant pericardial effusion. ABDOMEN: LIVER: Unremarkable. Homogeneous. No focal mass. GALLBLADDER AND BILE DUCTS: Unremarkable. No calcified gallstones. No gallbladder distention or wall edema. No intra- or extrahepatic biliary ductal dilation. PANCREAS: Unremarkable. No focal cystic or solid mass. SPLEEN: Unremarkable. Normal size without focal cystic or solid mass. ADRENALS: Unremarkable. No nodules. KIDNEYS AND URETERS: Unremarkable. Normal renal size and position. No hydronephrosis. STOMACH AND BOWEL: Unremarkable. No stomach or bowel distention. No focal inflammatory change. PELVIS: APPENDIX: No evidence of acute appendicitis. BLADDER: There is mild thickening of the wall the urinary bladder which may be due to incomplete distention or cystitis. REPRODUCTIVE: Unremarkable as visualized. No mass. ABDOMEN and PELVIS: INTRAPERITONEAL SPACE: Unremarkable. No ascites or other fluid collection. No free air. BONES/JOINTS: Unremarkable. No suspicious lytic or blastic abnormality. SOFT TISSUES: Unremarkable. No discrete abdominal or pelvic wall hernia. VASCULATURE: Unremarkable. Abdominal aorta is non-dilated. LYMPH NODES: Unremarkable. No enlarged lymph nodes. TUBES, LINES AND DEVICES: There is battery pack over the posterior right pelvis with a lead extending into the right sacrum. CT/Abdomen/Pelvis WITH Contrast IMPRESSION: Minimal thickening of the wall the urinary bladder which may be due to incomplete distention or cystitis. No other acute abnormalities are identified. Electronically Signed: Alistair Ballard MD at 20:22 EST , CC: Dr. Lydia Simms MD Bindery Operator: Signed [facility] L3300.0940on 03-19-2024 VIT D,25 HYDROX [facility] Comment on above: Order Comment: SENDI NG SPECIMEN TO REFERENCE LABORATORY Result Comment: TEST RESULTS LIMITS Vitamin D, 25-Hydroxy 37.7 ng/mL 30.0-100.0 Vitamin D deficiency has been defined by the [place] [employer] and an Endocrine Society practice guideline as a level of serum 25-OH vitamin D less than 20 ng/mL (1,2). The Endocrine Society went on to further define vitamin D insufficiency as a level between 21 and 29 ng/mL (2). 1. IOM ([place] [employer]). 2010. Dietary reference intakes for calcium and D. [place]: The National Academies Press. 2. Caitlin MENJIVAR, Alex CUI, Kassandra RANGEL, et al. Evaluation, treatment, and prevention of vitamin D deficiency: an Endocrine Society clinical practice guideline. JCEM. 2011 Nov; 96(7):1918-30. TESTING PERFORMED AT [facility]. ORIGINAL REPORT ON FILE IN LAB CONTAINS ADDITIONAL TEST SITE INFORMATION. Performed By: #### L 501.9985, L3300.0940, L100.0100, L500.4050 #### [facility] [address] [place], [address] CBC W/Diff, Automatedon 03-01-2023 Absolute Lymph 1.41 X10 3/uL Normal 0.83-4.51 [facility] Comment on above: Performed By: #### L 501.9985, L3300.0940, L100.0100, L500.4050 #### [facility] [address] [place], [address] Absolute Neut 2.5 X10 3/uL Normal 2.0-7.7 [facility] Comment on above: Performed By: #### L 501.9985, L3300.0940, L100.0100, L500.4050 #### [facility] [address] [place], [address] Basophils/100 WBC (Bld) 0.8 % Normal 0-1 [facility] Comment on above: Performed By: #### L 501.9985, L3300.0940, L100.0100, L500.4050 #### [facility] [address] [place], [address] Eosinophils/100 WBC (Bld) 5.3 % High 0-5 [facility] Comment on above: Performed By: #### L 501.9985, L3300.0940, L100.0100, L500.4050 #### [facility] [address] [place], [address] Erythrocyte distribution width (RBC) [Ratio] 14.0 % Normal 11.6-14.6 [facility] Comment on above: Performed By: #### L 501.9985, L3300.0940, L100.0100, L500.4050 #### [facility] [address] [place], [address] Hematocrit (Bld) [Volume fraction] 44.7 % Normal 40-54 [facility] Comment on above: Performed By: #### L 501.9985, L3300.0940, L100.0100, L500.4050 #### [facility] [address] [place], [address] Hemoglobin (Bld) [Mass/Vol] 14.2 g/dL Normal 13.0-16.5 [facility] Comment on above: Performed By: #### L 501.9985, L3300.0940, L100.0100, L500.4050 #### [facility] [address] [place], [address] IG% 0.200 Normal 0.0-0.9 [facility] Comment on above: Result Comment: IG% - Immature Granulocytes (promyelocytes, myelocytes and metamyelocytes) > 1% indicates that a LEFT SHIFT is Present. Performed By: #### L 501.9985, L3300.0940, L100.0100, L500.4050 #### [facility] [address] [place], [address] Lymphocytes/100 WBC (Bld) 29.9 % Normal 19-41 [facility] Comment on above: Performed By: #### L 501.9985, L3300.0940, L100.0100, L500.4050 #### [facility] [address] [place], [address] MCH (RBC) [Entitic mass] 28.3 pg Normal 27.0-32.0 [facility] Comment on above: Performed By: #### L 501.9985, L3300.0940, L100.0100, L500.4050 #### [facility] [address] [place], [address] MCHC (RBC) [Mass/Vol] 31.8 g/dL Low 32-36 [facility] Comment on above: Performed By: #### L 501.9985, L3300.0940, L100.0100, L500.4050 #### [facility] [address] [place], [address] MCV (RBC) [Entitic vol] 89.0 fL Normal 80-94 [facility] Comment on above: Performed By: #### L 501.9985, L3300.0940, L100.0100, L500.4050 #### [facility] [address] [place], [address] Monocytes/100 WBC (Bld) 11.5 % High 0-10 [facility] Comment on above: Performed By: #### L 501.9985, L3300.0940, L100.0100, L500.4050 #### [facility] [address] [place], [address] Neutrophils/100 WBC (Bld) 52.3 % Normal 47-70 [facility] Comment on above: Performed By: #### L 501.9985, L3300.0940, L100.0100, L500.4050 #### [facility] [address] [place], [address] Nucleated RBC (Bld) [#/Vol] 0 10*3/uL Normal 0-5 [facility] Comment on above: Performed By: #### L 501.9985, L3300.0940, L100.0100, L500.4050 #### [facility] [address] [place], [address] Platelet mean volume (Bld) [Entitic vol] 11.2 fL Normal 6.2-12.0 [facility] Comment on above: Performed By: #### L 501.9985, L3300.0940, L100.0100, L500.4050 #### [facility] [address] [place], [address] Platelets (Bld) [#/Vol] 186 10*3/uL Normal 150-450 [facility] Comment on above: Performed By: #### L 501.9985, L3300.0940, L100.0100, L500.4050 #### [facility] [address] [place], [address] RBC (Bld) [#/Vol] 5.02 10*6/uL Normal 4.6-6.[address] [facility] Comment on above: Performed By: #### L 501.9985, L3300.0940, L100.0100, L500.4050 #### [facility] [address] [place], [address] RDW SD 45.1 fl High 35.1-43.9 [facility] Comment on above: Performed By: #### L 501.9985, L3300.0940, L100.0100, L500.4050 #### [facility] [address] [place], [address] WBC (Bld) [#/Vol] 4.7 10*3/uL Normal 4.4-11.0 [facility] Comment on above: Performed By: #### L 501.9985, L3300.0940, L100.0100, L500.4050 #### [facility] [address] [place], [address] Comprehensive Metabolic Prof ilon 03-14-2024 Albumin [Mass/Vol] 3.4 g/dL Normal 3.2-5.0 [facility] Comment on above: Performed By: #### L 501.9985, L3300.0940, L100.0100, L500.4050 #### [facility] [address] [place], [address] Albumin/Globulin [Mass ratio] 1.1 {ratio} Normal 0.9-2.4 [facility] Comment on above: Performed By: #### L 501.9985, L3300.0940, L100.0100, L500.4050 #### [facility] [address] [place], [address] ALK P 63 U/L Normal 45-117 [facility] Comment on above: Performed By: #### L 501.9985, L3300.0940, L100.0100, L500.4050 #### [facility] [address] [place], [address] ALT [Catalytic activity/Vol] 22 U/L Normal 16-61 [facility] Comment on above: Performed By: #### L 501.9985, L3300.0940, L100.0100, L500.4050 #### [facility] [address] [place], [address] AST [Catalytic activity/Vol] 12 U/L Low 15-37 [facility] Comment on above: Performed By: #### L 501.9985, L3300.0940, L100.0100, L500.4050 #### [facility] [address] [place], [address] Bilirubin [Mass/Vol] 0.60 mg/dL Normal 0.20-1.00 [facility] Comment on above: Result Comment: For patients on eltrombopag therapy, use of Dimension [place] TBIL is not recommended. Performed By: #### L 501.9985, L3300.0940, L100.0100, L500.4050 #### [facility] [address], [address] BUN/CRE 13.8 RATIO Normal 10-20 [facility] Comment on above: Performed By: #### L 501.9985, L3300.0940, L100.0100, L500.4050 #### [facility] [address] [place], [address] CA,Total 9.1 mg/dL Normal 8.5-10.1 [facility] Comment on above: Performed By: #### L 501.9985, L3300.0940, L100.0100, L500.4050 #### [facility] [address] [place], [address] Chloride [Moles/Vol] 110 mmol/L High 98-107 [facility] Comment on above: Performed By: #### L 501.9985, L3300.0940, L100.0100, L500.4050 #### [facility] [address] [place], [address] CO2 [Moles/Vol] 30.0 mmol/L Normal 21.0-32.0 [facility] Comment on above: Performed By: #### L 501.9985, L3300.0940, L100.0100, L500.4050 #### [facility] [address] [place], [address] Creatinine [Mass/Vol] 1.09 mg/dL Normal 0.70-1.30 [facility] Comment on above: Result Comment: The validity of the calculated GFR GFRAA in patients over 70 years has not been determined. Clinical correlation is essential. Performed By: #### L 501.9985, L3300.0940, L100.0100, L500.4050 #### [facility] [address] [place], [address] EST GFR - AA 84 mL/min Normal >60 [facility] Comment on above: Result Comment: Afri can [place]ian GFR Calc Performed By: #### L 501.9985, L3300.0940, L100.0100, L500.4050 #### [facility] [address] [place], [address] GAP 4 Low 5-15 [facility] Comment on above: Performed By: #### L 501.9985, L3300.0940, L100.0100, L500.4050 #### [facility] [address] [place], [address] GFR/1.73 sq M.predicted among non-blacks MDRD (S/P/Bld) [Vol rate/Area] 69 mL/min/{1.73_m2} Normal >60 [facility] Comment on above: Result Comment: Non- GFR Calc Performed By: #### L 501.9985, L3300.0940, L100.0100, L500.4050 #### [facility] [address] [place], [address] Globulin (S) [Mass/Vol] 3.0 g/dL Normal 2.2-4.2 [facility] Comment on above: Performed By: #### L 501.9985, L3300.0940, L100.0100, L500.4050 #### [facility] [address] [place], [address] Glucose [Mass/Vol] 106 mg/dL Normal 74-106 [facility] Comment on above: Result Comment: Fast ing Glucose result from 100 to 125 mg/dL suggests IMPAIRED HOMEOSTASIS per A.D.A. criteria. Performed By: #### L 501.9985, L3300.0940, L100.0100, L500.4050 #### [facility] [address] [place], [address] Potassium [Moles/Vol] 4.1 mmol/L Normal 3.5-5.1 [facility] Comment on above: Performed By: #### L 501.9985, L3300.0940, L100.0100, L500.4050 #### [facility] [address] [place], [address] Sodium [Moles/Vol] 144 mmol/L Normal 136-145 [facility] Comment on above: Performed By: #### L 501.9985, L3300.0940, L100.0100, L500.4050 #### [facility] [address] [place], [address] T PROT 6.4 g/dL Normal 6.4-8.2 [facility] Comment on above: Performed By: #### L 501.9985, L3300.0940, L100.0100, L500.4050 #### [facility] [address] [place], [address] Urea nitrogen [Mass/Vol] 15 mg/dL Normal 7-18 [facility] Comment on above: Performed By: #### L 501.9985, L3300.0940, L100.0100, L500.4050 #### [facility] [address] [place], [address] Hemoglobin A1con 03-14-2024 HbA1c (Bld) [Mass fraction] 6.2 % High 3.8-5.6 [facility] Comment on above: Result Comment: Norm al < 5.7 % Prediabetic 5.7 - 6.4 % Diabetic >or= 6.5 % Please note range changes. Performed By: #### L 501.9985, L3300.0940, L100.0100, L500.4050 #### [facility] [address] [place], [address] PSA,Total- Diagnosticon 11-29 PSA, DIAGNOSTIC < 0.01 Normal 0.0-4.0 [facility] Comment on above: Order Comment: Order Date: 11/18/23 Order Info: [id number] - PSA PSA DUP FOR BOTH DOCTORS TESTO AND PSA-CLARITA PSA-ELROY Result Comment: This test was performed using the TPSA assay method for the [employer] chemistry system. Values obtained with different assay methods cannot be used interchangably. When changing PSA assays in the course of monitoring a patient, additional sequential testing should be carried out to confirm baseline values. Performed By: #### L 501.9940 #### [facility] [address] [place], [address] Testosterone, Serum Totalon 12-17-2023 Testosterone [Mass/Vol] 475.62 ng/dL Normal [facility] Comment on above: Order Comment: Order Date: 11/18/23Order Info: [id number] - HUMBERTO Result Comment: CENT RAL 90% REFERENCE RANGES MALE AGE <50 197.44 - 669.58 ng/dL MALE AGE > or = 50 187.72 - 684.19 ng/dL FEMALE AGE <50 8.38 - 35.01 ng/dL FEMALE AGE > or = 50 <7.00 - 35.92 ng/dL Effective as of 12/25/20 Performed By: #### L 509.3000 ####[facility] [address] [place], [place], [address] Brain W/WO Contraston 2023 Brain W/WO Contrast [facility] [address] [place] [address] Brain W/WO Contrast MR#: [id number] Acct: [id number] Name: VENESSA ÁLVAREZ Rep #: [id number] : 1945 M 78 From: Aung Mae PCP: Dr. Lydia Simms MD Status: REG CLI Study: Brain W/WO Contrast Date of Exam: 12/01/23 Exam# [id number] Ordering Dr: Lewis Julian MD [id number] INDICATION: UNILAT SENSORINEURAL HEARING LOSS EXAMINATION: MRI - MR Brain WO/W Contrast TECHNIQUE: MRI examination of brain obtained with standard protocol including multiplanar multiecho imaging. Pre and Postcontrast imaging obtained. IV Contrast Dosage and Agent: 13 mL Clariscan Radiation Dose (provided by facility) CTDIvol (NA ) mGy, DLP ( NA) mGy-cm __ FINDINGS: HEMISPHERES, CEREBELLUM AND BRAINSTEM: 1. The cerebral parenchyma, ventricular system, subarachnoid spaces have normal configuration and density. There is a normal gyral pattern. There is normal casillas/white differentiation. No midline shift.. 2. There is diffuse involutional change, minimal chronic microvascular deep white matter changes are present. 3. No intraparenchymal mass, hemorrhage, or acute territorial infarct. 4. The cerebellum, brainstem, basilar and suprasellar cisterns have normal appearance. No Chiari malformation. 5. No areas of abnormal intraparenchymal or extra-axial contrast enhancement. CP ANGLE AND IAC : 1. Normal appearance the 7th and 8th cranial nerve complexes, IACs and membranous labyrinth. No masses or abnormal enhancement or soft tissue or fluid within the middle ear cavities or mastoid air cells. PITUITARY: Infundibulum and pituitary have normal configuration. Midline structures appear normal. CSF SPACES: Appropriate for age. No hydrocephalus. Basal cisterns are patent. VESSELS: 1. There are normal flow voids noted in the great vessels at the skull base ORBITS AND PARANASAL SINUSES: 1. Both globes, extraocular muscles, optic nerves and retrobulbar fat appear unremarkable. 2. Moderate to extensive ethmoid and frontal sinus disease. Moderate bilateral mastoid air cell disease. BONY ELEMENTS: Bony elements of the cranial vault, facial skeleton and skull base have normal appearance. SCALP AND SOFT TISSUES: Normal appearance of the soft tissues of the scalp and the visualized face OTHER: None MRI/Brain W/WO Contrast IMPRESSION: 1. Mild involutional changes and chronic microvascular deep white matter disease. 2. No intracranial mass, hemorrhage, or acute territorial infarct. 3. No areas of abnormal intraparenchymal or extra-axial contrast enhancement. 4. Normal appearance of the IACs, and membranous labyrinth at, and middle ear cavities. No masses or abnormal enhancement. No abnormal fluid collections. 5. Frontal ethmoid and maxillary sinus disease. Electronically Signed: Aung Harkins MD at 1:03 EDT , CC: Dr. Lydia Simms MD; Dr. Lewis Julian MD Bindery Operator: Signed Normal [facility] CREATININE FINGERSTICKon CREATININE WB < 1.0 Normal 0.70-1.30 [facility] Comment on above: Performed By: #### L 9100.0200 ####[facility] [address] [place], [address] EGFR WB > 60.0000 Normal >60 [facility] Comment on above: Performed By: #### L 9100.0200 ####[facility] H[facility]la[address]ackwo6818 [facility] [address] Stress Reporton 11-17-2023 Stress Report [facility] [address] [place] [address] MR#: [id number] Acct: [id number] Name: VENESSA ÁLVAREZ Rep #: [id number] : 1945 78 From: Garfield Cat MD Primary Care: Dr. Lydia Simms MD Status: REG CLI Referring Dr: Lydia Simms MD Sex: M C Stress Test Report Exercise stress test. 78-year-old man with a history of chest pain Stress protocol: Resting EKG demonstrates normal sinus rhythm with a rate of 63 bpm resting blood pressure is 118/70 mmHg. The patient exercised according to the regular Travis protocol for a total duration of 9 minutes attaining a maximum heart rate of 139 bpm which was 97% of maximum predicted heart rate; the maximum workload was 10.1 metabolic equivalents. At rest there were no ST or T wave changes noted to suggest ischemia and at peak exercise upsloping ST changes only were noted which did not meet the criteria for ischemia. No clinical angina was noted the test was terminated due to the target heart rate being achieved/fatigue. The peak blood pressure was 160/58 mmHg. Rate-pressure product was 22,000. Conclusion: Stress test with no EKG criteria for ischemia at a high workload. Good functional capacity. 11/17/231707 Date Garfield Cat MD CC: Dr. Lydia Simms MD Date Dictated: 11/17/231706 Date Transcribed: 11/17/231706 Bindery Operator: CO Signed Normal [facility] Testosterone, Serum Totalon 11-16-2023 Testosterone [Mass/Vol] 531.70 ng/dL Normal [facility] Comment on above: Order Comment: Order Date: 11/13/23 Order Info: [id number] - HUMBERTO Result Comment: CENT RAL 90% REFERENCE RANGES MALE AGE <50 197.44 - 669.58 ng/dL MALE AGE > or = 50 187.72 - 684.19 ng/dL FEMALE AGE <50 8.38 - 35.01 ng/dL FEMALE AGE > or = 50 <7.00 - 35.92 ng/dL Effective as of 12/25/20 Performed By: #### L 238.1129 #### [facility] [address] [place] [address]. [place], [address] Testosterone Freeon 11-12-19 TESTOSTER FREE 2.2 pg/mL Abnormal 6.6-18.1 [facility] Comment on above: Order Comment: Order Date: 11/05/23Order Info: [id number] - TESTOF Result Comment: Perf ormed at: - [facility] [address] [id number] [employer] Worker: Kerrie Butts MD, Phone: [phone] Performed By: #### L 3400.4800 ####[facility] [address] [place], [address] MR/BMS.BPon 09-29-2023 MR/BMS.BP [address], [address] [place] [id number] OFFICE VISIT Date of Service: 09/29/23 MR#: [id number] Acct: [id number] Name: VENESSA ÁLVAREZ Rep #: [id number] : 1945 Provider: LAMONTE razo Age/Sex: 78/M Location: [facility].BP Status: Signed Intake Vital Signs 03/13/23 09:23 09/29/23 07:16 09/29/23 07:21 Height 5 ft 5 in 5 ft 5 in 5 ft 5 in Weight: 144 lb BMI 23.9 BP 119/71 Blood Pressure Location Rt brachial Position Sitting Pulse 84 Pulse Source Monitor BP Intake Visit Reasons: Depression Land Measurer Required: No Accompanied by: Self Is patient in pain?: No Allergies Environmental Allergies: Uncoded Allergy (Intermediate, Verified 09/29/23 07:23) Other Medications ipratropium bromide 0.02 % solution for inhalation 2.5 ml inhalation Q6H PRN ALLERIES 09/11/21 [History Confirmed 09/29/23] latanoprost 0.005 % eye drops 1 drp EACH EYE QPM 09/11/21 [History Confirmed 09/29/23] lisinopril 10 mg tablet 10 mg PO DAILY #90 tabs 11/18/22 [Rx Confirmed 09/29/23] lovastatin 20 mg tablet 20 mg PO DAILY #90 tabs 11/18/22 [Rx Confirmed 09/29/23] alcohol swabs 1 pad topical BID #100 ea 12/31/22 [Rx Confirmed 09/29/23] blood sugar diagnostic (Viva Developmentsace PRO test strips) #50 ea 12/31/22 [Rx Confirmed 09/29/23] glucometer #1 ea 12/31/22 [Rx Confirmed 09/29/23] lancets 30 gauge (Embrace Lancets) #100 ea 12/31/22 [Rx Confirmed 09/29/23] desvenlafaxine succinate 50 mg tablet,extended release 24 hr 50 mg PO QDAY 09/29/23 [History Confirmed 09/29/23] Current gender identity: male Nurse's Note: Presents to the office today to establish new patient care for concerns of depression. [facility] Medical History (Updated 09/29/23 @ 08:35 by TICO AkinsC) Aneurysm of aorta Anxiety Anxiety and depression Arthritis Back pain Bladder disease Cataracts, bilateral Chronic headaches COVID CPAP (continuous positive airway pressure) dependence Depression Diabetes Dietary restriction Glaucoma History of stress test HTN (hypertension) Hx of bladder problems Hyperlipemia Mass Non-smoker Prostate cancer Seasonal allergies Wears glasses Wears partial dentures Surgical History History of prostate surgery History of tonsillectomy and adenoidectomy Hx of bilateral inguinal hernia repair Hx of colonoscopy Hx of right cataract extraction Family History Unknown Arthritis Diabetes Heart disease Hypertension Mother Arthritis Heart disease Hypertension Father Heart disease Hypertension Depression Brother Diabetes Social History current gender identity: male Smoking Status: Never smoker alcohol intake: never substance use type: does not use caffeine: Yes what type of physical activity do you participate in: bicycling and weight training frequency: 5-6 times per week HPI History of Present Illness History provided by: patient Chief complaint: Depression HPI: Venessa Álvarez is a 78 year old male patient presenting today for an intake evaluation. 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 Tried TMS in 2022 and thought the treatments were helpful for a little while but then went back to the same level of depression; did 36 treatments. Has a hard time with decision making. Has an issue with anger outbursts at times and feels that this affects his marriage. Sleep: Reports sleeping well. 8 hours per night or more. Naps in the afternoon for about an hour. Interest: Denies having hobbies. Reports feeling better about himself when he is out doing something so he will do chalk painting on old furniture. Energy: Reports feeling well rested recently. Has had an issue in the past not being well rested. Reports recently having more energy, especially after an afternoon nap. Guilt: Reports feelings of guilt about his past and about wishing he would have done things differently. Reports feelings of hopelessness and worthlessness to some extent daily. Concentration: Lacks motivation. Reports issues with concentration and attention at times. Appetite: Appetite is fine. Reports small recent weight gain. Psychomotor: WNL Suicide: Reports some passive thinking in the past however reports his mormonism is a strong proponent of not taking action. Denies having these thoughts more recently. Memory: Reports memory issues. 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 Anxiety: Reports to be anxious every day nearly all day. Has had panic attacks in the past but this has been a year since he has had one. Obsessions: Reports some strange doom feelings (more content not included)... [facility] Absolute lymphocyte countOrd ered By: Lydia Simms on 05-23-2023 Lymphocytes Auto (Unsp spec) [#/Vol] 1.23 10*3/uL 0.83-4.51 [facility] Basophil percentageOrdered B y: Lydia Simms on 05-23-2023 Basophils/100 WBC (Bld) 0.8 % 0-1 [facility] Bilirubin [Mass/Vol] 0.50 mg/dL 0.20-1.00 [facility] Comment on above: For patients on eltr ombopag therapy, use of Dimension [place] TBIL is not recommended. Chloride [Moles/Vol] 109 mmol/L 98-107 [facility] Cholesterol [Mass/Vol] 170 mg/dL <200 [facility] Comment on above: <200 mg/dL Desirable 200-240 mg/dL Borderline >240 mg/dL High Risk Eosinophils/100 WBC (Bld) 4.2 % 0-5 [facility] Glucose [Mass/Vol] 118 mg/dL 74-106 [facility] Comment on above: Fasting Glucose resu lt from 100 to 125 mg/dL suggests IMPAIRED HOMEOSTASIS per A.D.A. criteria. Neutrophils (Bld) [#/Vol] 2.8 10*3/uL 2.0-7.7 [facility] Neutrophils/100 WBC (Bld) 57.5 % 47-70 [facility] Potassium [Moles/Vol] 4.5 mmol/L 3.5-5.1 [facility] Protein [Mass/Vol] 6.7 g/dL 6.4-8.2 [facility] Sodium [Moles/Vol] 142 mmol/L 136-145 [facility] Triglyceride [Mass/Vol] 69 mg/dL <199 [facility] Comment on above: The drugs N-Acetylcy steine and Metamizole may falsely depress this assay.Serum Triglycerides Reference Interval Normal <150 mg/dL Borderline high 150 - 199 mg/dL High 200 - 499 mg/dL Very High > or = 500 mg/dL WBC (Bld) [#/Vol] 5.0 10*3/uL 4.4-11.0 [facility] Blood erythrocytes count (nu mber/volume)Ordered By: Lydia Simms on 05-23-2023 RBC (Bld) [#/Vol] 4.98 10*6/uL 4.6-6.[address] [facility] Blood hemoglobin measurement (mass/volume)Ordered By: Lydia Simms on 05-23-2023 Hemoglobin (Bld) [Mass/Vol] 14.3 g/dL 13.0-16.5 [facility] Blood lymphocytes/100 leukoc ytesOrdered By: Lydia Simms on 05-23-2023 Lymphocytes/100 WBC (Bld) 24.8 % 19-41 [facility] Blood monocytes/100 leukocyt esOrdered By: Lydia Simms on 05-23-2023 Monocytes/100 WBC (Bld) 12.3 % 0-10 [facility] Blood platelet mean volumeOr dered By: Lydia Simms on 05-23-2023 Platelet mean volume (Bld) [Entitic vol] 11.0 fL 6.2-12.0 [facility] Determination of erythrocyte mean corpuscular volume (MCV)Ordered By: Lydia Simms on 05-23-2023 MCV (RBC) [Entitic vol] 90.4 fL 80-94 [facility] Hematocrit Auto (Bld) [Volum e fraction]Ordered By: Lydia Simms on 05-23-2023 Hematocrit (Bld) [Volume fraction] 45.0 % 40-54 [facility] - Chemistry and C hemistry - challengeOrdered By: Lydia Simms on 05-23-2023 ALP [Catalytic activity/Vol] 65 U/L 45-117 [facility] ALT [Catalytic activity/Vol] 24 U/L 16-61 [facility] CO2 [Moles/Vol] 34.0 mmol/L 21.0-32.0 [facility] Globulin (S) [Mass/Vol] 3.2 g/dL 2.2-4.2 [facility] Urea nitrogen/Creatinine [Mass ratio] 13.5 mg/mg 10-20 [facility] - Hematology and Cell countsOrdered By: Lydia Simms on 05-23-2023 Erythrocyte distribution width (RBC) [Entitic vol] 45.5 fL 35.1-43.9 [facility] Erythrocyte distribution width (RBC) [Ratio] 13.6 % 11.6-14.6 [facility] Immature granulocytes/100 WBC (Bld) 0.400 % 0.0-0.9 [facility] Comment on above: IG% - Immature Granu locytes (promyelocytes, myelocytes and metamyelocytes) > 1% indicates that a LEFT SHIFT is Present. MCH (RBC) [Entitic mass] 28.7 pg 27.0-32.0 [facility] Nucleated RBC/100 WBC (Bld) [Ratio] 0 % 0-5 [facility] MCHC Auto (RBC) [Mass/Vol]Or dered By: Lydia Simms on 05-23-2023 MCHC (RBC) [Mass/Vol] 31.8 g/dL 32-36 [facility] No Panel InformationOrdered By: Lydia Simms on 05-23-2023 Estimated GFR (MDRD) Amer 82 mL/min >60 [facility] Comment on above: GFR Calc Estimated GFR (MDRD) Non-Af Amer 68 mL/min >60 [facility] Comment on above: Non- GFR Calc Prostate Specific Antigen Total < 0.01 ng/mL 0.0-4.0 [facility] Comment on above: This test was perfor med using the TPSA assay method for the[facility] chemistry system. Values obtained with differentassay methods cannot be used interchangably.When changing PSA assays in the course of monitoring apatient, additional sequential testing should be carriedout to confirm baseline values. Platelets bldOrdered By: Yesica Simms on 05-23-2023 Platelets (Bld) [#/Vol] 198 10*3/uL 150-450 [facility] Serum or plasma albumin augie urement (mass/volume)Ordered By: Lydia Simms on 05-23-2023 Albumin [Mass/Vol] 3.5 g/dL 3.2-5.0 [facility] Serum or plasma albumin/glob ulin mass ratioOrdered By: Lydia Simms on 05-23-2023 Albumin/Globulin [Mass ratio] 1.1 {ratio} 0.9-2.4 [facility] Serum or plasma calcium augie urement (mass/volume)Ordered By: Lydia Simms on 05-23-2023 Calcium [Mass/Vol] 9.5 mg/dL 8.5-10.1 [facility] Serum or plasma cholesterol in HDL measurement (mass/volume)Ordered By: Lydia Simms on 05-23-2023 Cholesterol in HDL [Mass/Vol] 53 mg/dL >40 [facility] Comment on above: The drugs N-Acetylcy steine and Metamizole may falsely depress this assay. Reference Range HDL <40 mg/dL Low HDL Cholesterol HDL >or= 60 mg/dL High HDL Cholesterol Serum or plasma cholesterol in VLDL measurement (mass/volume)Ordered By: Lydia Simms on 05-23-2023 Cholesterol in VLDL [Mass/Vol] 14 mg/dL 5-40 [facility] Serum or plasma creatinine m easurement (mass/volume)Ordered By: Lydia Simms on 05-23-2023 Creatinine [Mass/Vol] 1.11 mg/dL 0.70-1.30 [facility] Comment on above: The validity of the calculated GFR & GFRAA in patients over 70 years has not been determined. Clinical correlation is essential. Serum or plasma low density lipoprotein (LDL) cholesterol measurement (mass/volume)Ordered By: Lydia Simms on 05-23-2023 Cholesterol in LDL [Mass/Vol] 103 mg/dL 0-130 [facility] Serum or plasma urea nitroge n measurement (mass/volume)Ordered By: Lydia Simms on 05-23-2023 Urea nitrogen [Mass/Vol] 15 mg/dL 7-18 [facility] Thin prep Papanicolaou smear with manual screeningOrdered By: Lydia Simms on 05-23-2023 Thin prep Papanicolaou smear with manual screening 17 U/L 15-37 [facility] Thin prep Papanicolaou smear with manual screening -1 5-15 [facility] CNPNon 02-25-2023 CNPN Telephone (ENDWST) VENESSA ÁLVAREZ ([id number]) 1945 M Date Time Provider Department 02/25/23 DEB MONTILLA During your visit today, we recorded the following information about you: Jacque Candelario RN 02/25/2023 8:41 AM Signed Patient asking Nicole Montilla CNP, to please review and advise on recent lab results. Deb Montilla, PRESLEY.MARYANN 02/25/2023 9:49 AM Signed Labs look GREAT. Like a healthy 21 year old :) Maybe a little less B6 (IF he is taking supplement for B6) Ale Mcelroy 02/25/2023 3:55 PM Signed Message below relayed to patient verbatim. Patient asked if B6 level could be causing brain fog and fatigue. It was suggested that he reach out to his PCP for help with those symptoms. Patient verbalized understanding and had no further questions. Ale Mcelroy MA Allergies As of Date: 02/25/2023 Noted Allergy Reaction DUST 04/05/2012 14 - Other: See Comments Comments: Sneezing, runny nose DUST MITES 05/12/2014 14 - Other: See Comments Comments: Runny nose Date Reviewed: 02/18/2023 Reviewed by: Ale Mcelroy - Fully Assessed Reason for Visit: Results [95] Prescriptions as of 02/25/2023 - latanoprost (XALATAN) 0.005 % ophthalmic solution Use 1 Drop in both eyes daily at bedtime. - hypromellose (GONAK) 2.5 % ophthalmic solution Use 1 Drop in both eyes as needed. - cycloSPORINE (RESTASIS) 0.05 % ophthalmic emulsion Use 1 Drop in both eyes twice daily. - lovastatin (MEVACOR) 10 mg tablet Take 2 tablets by mouth daily at bedtime. - lisinopril (PRINIVIL) 10 mg tablet Take 1 tablet by mouth once daily. - desvenlafaxine ER 50 mg 24 hr tablet Take 1 tablet by mouth once daily. Problem List As Of Date 02/25/2023 Noted Resolved Actinic keratoses: Premalignant AK's [L57.0] 01/22/2011 11/13/2011 Other seborrheic keratosis [L82.1] 01/22/2011 11/13/2011 Melanocytic nevus of trunk [D22.5] 01/22/2011 11/13/2011 Intradermal nevus [D23.9] 01/22/2011 11/13/2011 Actinic skin damage [L57.8] 01/22/2011 11/13/2011 Irritated//Inflamed Seborrheic Keratosis [L82.0]01/24/2011 11/13/2011 Other and unspecified hyperlipidemia [E78.5] 11/13/2011 Elevated glucose [R73.09] 11/13/2011 Fatigue [R53.83] 11/13/2011 BPH (benign prostatic hyperplasia) [N40.0] 11/13/2011 Diverticulosis [K57.90] 07/06/2012 Internal hemorrhoids without mention of complic*07/06/2012 Actinic Keratosis (Premalignant AK) [L57.0] 08/17/2012 Irritated//Inflamed Seborrheic Keratoses [L82.0]08/17/2012 Actinic skin damage [L57.8] 08/17/2012 Solar lentigo [L81.4] 08/17/2012 Alvarez angioma [D18.01] 08/17/2012 Comedonal acne [L70.0] 08/17/2012 Epidermal cyst [L72.0] 08/17/2012 Other seborrheic keratosis [L82.1] 08/17/2012 Depressive disorder, not elsewhere classified [*04/21/2013 HTN (hypertension) [I10] 07/29/2013 Junctional Nevus moles of R and L upper arms [*10/07/2013 Melanocytic nevi of upper extremity or shoulder*10/07/2013 Tic [F95.9] 05/12/2014 Tear film insufficiency, unspecified [H04.129] 05/12/2014 Encounter Status:Closed by ALE MCELROY on 02/25/[address] [facility] 25(OH)D3 SerPl-ncon 2022 25-hydroxyvitamin D3 [Mass/Vol] 45.2 ng/mL Normal 31.0-80.0 [facility] Comment on above: Order Comment: Speci men Type: BLOOD SPECIMEN Ordering Facility: [facility] Address: [address] [place] [address] Result Comment: Clas sification of 25 [place] Vitamin D status: Deficiency/Insufficiency: < or = 30 ng/ml. Sufficiency/Optimal Levels: 31-80 ng/mL Toxicity: > 100 ng/mL. Test performed by chemiluminescent immunoassay. Performed By: #### 1 989-3 #### [facility] CLIA [id number] [address] [place] [address] [place] ALBUMIN/CREAT RATIO RND URon 02-18-2023 Albumin DL <= 20 mg/L (U) [Mass/Vol] mg/dL Normal [facility] Comment on above: Order Comment: Speci men Type: URINE SPECIMEN Ordering Facility: [facility] Address: [address] [place], [place] [id number] Performed By: #### U ACR #### [facility] CLIA [id number] [address] [place] [address] [place] Albumin/Creatinine (U) [Mass ratio] <12 Normal <30 [facility] Comment on above: Order Comment: Speci men Type: URINE SPECIMEN Ordering Facility: [facility] Address: [address] [place], [place] [id number] Result Comment: Adul t Male and Female Nephrotic Criteria: <30 mg/g is considered normal to mildly increased 30-300 mg/g is considered moderately increased >300 mg/g is considered severely increased KDIGO. (2013). KDIGO 2012 Clinical Practice Guideline for the Evaluation and Management of Chronic Kidney Disease. Official Journal of the International Society of Nephrology, 3(1), 1-150. Performed By: #### U ACR #### [facility] CLIA [id number] [address] [place] [address] [place] Creatinine (U) [Mass/Vol] 98.2 mg/dL Normal 20.0-300.0 [facility] Comment on above: Order Comment: Speci men Type: URINE SPECIMEN Ordering Facility: [facility] Address: [address] [place] [address] Performed By: #### U ACR #### [facility] CLIA [id number] [address] [place] [address] [place] CBC W Auto Differential pane l (Bld)on 02-18-2023 Basophils (Bld) [#/Vol] 0.04 10*3/uL Normal <0.11 [facility] Comment on above: Order Comment: Speci men Type: BLOOD SPECIMEN Ordering Facility: [facility] Address: [address] [place] [address] Performed By: #### 5 7021-8 #### [facility] CLIA [id number] [address] [place] [address] [place] Basophils/100 WBC (Bld) 0.8 % Normal [facility] Comment on above: Order Comment: Speci men Type: BLOOD SPECIMEN Ordering Facility: [facility] Address: [address] [place] [address] Performed By: #### 5 7021-8 #### [id number] [address] [place] [address] [place] Differential cell count method Nom (Bld) Auto Normal [facility] Comment on above: Order Comment: Speci men Type: BLOOD SPECIMEN Ordering Facility: [facility] Address: [address] [place] [address] Performed By: #### 5 7021-8 #### [facility] CLIA [id number] [address] [place] [address] [place] Eosinophils (Bld) [#/Vol] 0.15 10*3/uL Normal <0.46 [facility] Comment on above: Order Comment: Speci men Type: BLOOD SPECIMEN Ordering Facility: [facility] Address: [address] [place], [place] [address] Performed By: #### 5 7021-8 #### [facility] CLIA [id number] [address] [place] [address] [place] Eosinophils/100 WBC (Bld) 2.8 % Normal [facility] Comment on above: Order Comment: Speci men Type: BLOOD SPECIMEN Ordering Facility: [facility] Address: [address] [place] [address] Performed By: #### 5 7021-8 #### [facility] CLIA [id number] [address] [place] [address] [place] Erythrocyte distribution width (RBC) [Ratio] 13.7 % Normal 11.5-15.0 [facility] Comment on above: Order Comment: Speci men Type: BLOOD SPECIMEN Ordering Facility: [facility] Address: [address] [place] [address] Performed By: #### 5 7021-8 #### [facility] CLIA [id number] [address] [place] [address] [place] Hematocrit (Bld) [Volume fraction] 44.7 % Normal 39.0-51.0 [facility] Comment on above: Order Comment: Speci men Type: BLOOD SPECIMEN Ordering Facility: [facility] Address: [address] [place], [place] [address] Performed By: #### 5 7021-8 #### [facility] CLIA [id number] [address] [place] [address] [place] Hemoglobin (Bld) [Mass/Vol] 14.9 g/dL Normal 13.0-17.0 [facility] Comment on above: Order Comment: Speci men Type: BLOOD SPECIMEN Ordering Facility: [facility] Address: [address] [place] [address] Performed By: #### 5 7021-8 #### [facility] CLIA [id number] [address] [place] [address] [place] Immature granulocytes (Bld) [#/Vol] 10*3/uL Normal <0.10 [facility] Comment on above: Order Comment: Speci men Type: BLOOD SPECIMEN Ordering Facility: [facility] Address: [address] [place] [address] Performed By: #### 5 7021-8 #### [facility] CLIA [id number] [address] [place] [address] [place] Immature granulocytes/100 WBC (Bld) 0.2 % Normal [facility] Comment on above: Order Comment: Speci men Type: BLOOD SPECIMEN Ordering Facility: [facility] Address: [address] [place] [address] Performed By: #### 5 7021-8 #### [facility] CLIA [id number] [address] [place] [address] [place] Lymphocytes (Bld) [#/Vol] 1.17 10*3/uL Normal 1.00-4.00 [facility] Comment on above: Order Comment: Speci men Type: BLOOD SPECIMEN Ordering Facility: [facility] Address: [address] [place] [address] Performed By: #### 5 7021-8 #### [facility] CLIA [id number] [address] [place] [address] [place] Lymphocytes/100 WBC (Bld) 22.2 % Normal [facility] Comment on above: Order Comment: Speci men Type: BLOOD SPECIMEN Ordering Facility: [facility] Address: [address] [address] Performed By: #### 5 7021-8 #### [facility] CLIA [id number] [address] [place] [address] MCH (RBC) [Entitic mass] 29.1 pg Normal 26.0-34.0 [facility] Comment on above: Order Comment: Speci men Type: BLOOD SPECIMEN Ordering Facility: [facility] Address: [address] [address] Performed By: #### 5 7021-8 #### [facility] [id number] [address] [place] [address] [place] MCHC (RBC) [Mass/Vol] 33.3 g/dL Normal 30.5-36.0 [facility] Comment on above: Order Comment: Speci men Type: BLOOD SPECIMEN Ordering Facility: [facility] Address: [address] [address] Performed By: #### 5 7021-8 #### [facility] [id number] [address] [place] [address] [place] MCV (RBC) [Entitic vol] 87.3 fL Normal 80.0-100.0 [facility] Comment on above: Order Comment: Speci men Type: BLOOD SPECIMEN Ordering Facility: [facility] Address: [address] Performed By: #### 5 7021-8 #### [facility] [id number] [address] [place] [address] [facility] Monocytes (Bld) [#/Vol] 0.56 10*3/uL Normal <0.87 [facility] Comment on above: Order Comment: Speci men Type: BLOOD SPECIMEN Ordering Facility: [facility] Address: [address] [address] Performed By: #### 5 7021-8 #### [facility] CLIA [id number] [address] [place] [address] [place] Monocytes/100 WBC (Bld) 10.6 % Normal [facility] Comment on above: Order Comment: Speci men Type: BLOOD SPECIMEN Ordering Facility: [facility] Address: [address] [place] [address] Performed By: #### 5 7021-8 #### [facility] CLIA [id number] [address] [place] [address] [place] Neutrophils (Bld) [#/Vol] 3.35 10*3/uL Normal 1.45-7.50 [facility] Comment on above: Order Comment: Speci men Type: BLOOD SPECIMEN Ordering Facility: [facility] Address: [address] [place] [address] Performed By: #### 5 7021-8 #### [facility] CLIA [id number] [address] [place] [address] [place] Neutrophils/100 WBC (Bld) 63.4 % Normal [facility] Comment on above: Order Comment: Speci men Type: BLOOD SPECIMEN Ordering Facility: [facility] Address: [address] [place] [address] Performed By: #### 5 7021-8 #### [facility] CLIA [id number] [address] [place] [address] [place] Nucleated RBC (Bld) [#/Vol] 10*3/uL Normal <0.01 [facility] Comment on above: Order Comment: Speci men Type: BLOOD SPECIMEN Ordering Facility: [facility] Address: [address] [place] [address] Performed By: #### 5 7021-8 #### [facility] CLIA [id number] [address] [place] [address] [place] Nucleated RBC/100 WBC (Bld) [Ratio] 0.0 /[address] [facility] Comment on above: Order Comment: Speci men Type: BLOOD SPECIMEN Ordering Facility: [facility] Address: [address] [place], [place] [address] Performed By: #### 5 7021-8 #### [facility] CLIA [id number] [address] [place] [address] [place] Platelet mean volume (Bld) [Entitic vol] 10.9 fL Normal 9.0-12.7 [facility] Comment on above: Order Comment: Speci men Type: BLOOD SPECIMEN Ordering Facility: [facility] Address: [address] [place] [address] Performed By: #### 5 7021-8 #### [facility] CLIA [id number] [address] [place] [address] [place] Platelets (Bld) [#/Vol] 202 10*3/uL Normal 150-400 [facility] Comment on above: Order Comment: Speci men Type: BLOOD SPECIMEN Ordering Facility: [facility] Address: [address] [place], [place] [address] Performed By: #### 5 7021-8 #### [facility] CLIA [id number] [address] [place] [address] [place] RBC (Bld) [#/Vol] 5.12 10*6/uL Normal 4.20-6.00 [facility] Comment on above: Order Comment: Speci men Type: BLOOD SPECIMEN Ordering Facility: [facility] Address: [address] Performed By: #### 5 7021-8 #### [facility] CLIA [id number] [address] [place] [address] [place] WBC (Bld) [#/Vol] 5.28 10*3/uL Normal 3.70-11.00 [facility] Comment on above: Order Comment: Speci men Type: BLOOD SPECIMEN Ordering Facility: [facility] Address: [place] [address] Performed By: #### 5 7021-8 #### [facility] CLIA [id number] [address] [place] [address] [place] Basophils (Bld) [#/Vol] 0.04 10*3/uL <0.11 k/uL [facility] Basophils/100 WBC (Bld) 0.8 % C [facility] Differential cell count method Nom (Bld) Auto [facility] Eosinophils (Bld) [#/Vol] 0.15 10*3/uL <0.46 k/uL [facility] Eosinophils/100 WBC (Bld) 2.8 % [facility] Erythrocyte distribution width (RBC) [Ratio] 13.7 % 11.5 - 15.0 % [facility] Hematocrit (Bld) [Volume fraction] 44.7 % 39.0 - 51.0 % [facility] Hemoglobin (Bld) [Mass/Vol] 14.9 g/dL 13.0 - 17.0 g/dL [facility] Immature granulocytes (Bld) [#/Vol] <0.10 k/uL [facility] Immature granulocytes/100 WBC (Bld) 0.2 % [facility] Lymphocytes (Bld) [#/Vol] 1.17 10*3/uL 1.00 - 4.00 k/uL [facility] Lymphocytes/100 WBC (Bld) 22.2 % [facility] MCH (RBC) [Entitic mass] 29.1 pg 26.0 - 34.0 pg [facility] MCHC (RBC) [Mass/Vol] 33.3 g/dL 30.5 - 36.0 g/dL [facility] MCV (RBC) [Entitic vol] 87.3 fL 80.0 - 100.0 fL [facility] Monocytes (Bld) [#/Vol] 0.56 10*3/uL <0.87 k/uL [facility] Monocytes/100 WBC (Bld) 10.6 % C [facility] Neutrophils (Bld) [#/Vol] 3.35 10*3/uL 1.45 - 7.50 k/uL [facility] Neutrophils/100 WBC (Bld) 63.4 % [facility] Nucleated RBC (Bld) [#/Vol] <0.01 k/uL [facility] Nucleated RBC/100 WBC (Bld) [Ratio] 0.0 /100 WBC [facility] Platelet mean volume (Bld) [Entitic vol] 10.9 fL 9.0 - 12.7 fL [facility] Platelets (Bld) [#/Vol] 202 10*3/uL 150 - 400 k/uL [facility] RBC (Bld) [#/Vol] 5.12 10*6/uL 4.20 - 6.0 0 m/uL [facility] WBC (Bld) [#/Vol] 5.28 10*3/uL 3.70 - 11. 00 k/uL [facility] CNOVon 02-18-2023 CNOV Office Visit (ENDWST ) VENESSA ÁLVAREZ ([id number]) 1945 M Date Time Provider Department 02/18/23 10:15 AM DEB MONTILLA During your visit today, we recorded the following information about you: Pulse Blood pressure Weight Height 64/minute 122/72 63.8 kg 1.626 m Deb Montilla, KNOCKDOWN WORKER.STAFFING ADMINISTRATOR 02/18/2023 11:01 AM Signed NEW CONSULT OFFICE PROGRESS NOTE Reason for Consultation: PRE DIABETES Referring Physician: SELF My final recommendations will be communicated back to the requesting physician by way of shared Medical record or letter via US mail. HISTORY OF PRESENT ILLNESS; Venessa Álvarez is a 77 year old MALE [...] has no known microvascular complications of diabetes. Venessa has no know macrovascular complications of diabetes.. DM Education No Knows how to carb count No DIETARY HISTORY: Breakfast: at home - cereal w milk OR eggs/toast IF OUT - blueberry pancakes/liu max w several eggs, coffee Lunch apple with PB OR celery with PB OR - eats out - LIU max OR [employer] restaurant OR fast food -burger/fries OR roast [...] Procedure Laterality Date COLONOSCOP W/ OR W/O [facility] SPEC 07/15/12 Colonoscopy repeat 5 years PAST [...] 122/72 Pulse 64 Ht 162.6 cm (5' 4) Wt 63.8 kg (140 lb 9.6 oz) SpO2 97% BMI 24.13 kg/m? General appearance: Well appearing, alert, in no acute distress, well-hydrated, well nourished. Skin: Skin color, texture, turg (more content not included)... Normal [facility] Comprehensive metabolic 2000 panelon 02-18-2023 Albumin [Mass/Vol] 4.4 g/dL Normal 3.9-4.9 [facility] Comment on above: Order Comment: Susana rowe Type: BLOOD SPECIMEN Ordering Facility: [facility] Address: [address] [phone] Performed By: #### 2 4323-8 #### [facility] CLIA [id number] [address] [place] [address] [place] ALP [Catalytic activity/Vol] 70 U/L Normal 38-113 [facility] Comment on above: Order Comment: Susana rowe Type: BLOOD SPECIMEN Ordering Facility: [facility] Address: [address] [address] Performed By: #### 2 4323-8 #### [facility] CLIA [id number] [address] [place] [address] [place] ALT [Catalytic activity/Vol] 18 U/L Normal 10-54 [facility] Comment on above: Order Comment: Speci men Type: BLOOD SPECIMEN Ordering Facility: [facility] Address: [address] [place] [address] Performed By: #### 2 4323-8 #### [facility] CLIA [id number] [address] [place] [address] [place] Anion gap [Moles/Vol] 9 mmol/L Normal 9-18 [facility] Comment on above: Order Comment: Speci men Type: BLOOD SPECIMEN Ordering Facility: [facility] Address: [address] [place] [address] Performed By: #### 2 4323-8 #### [facility] CLIA [id number] [address] [place] [address] [place] AST [Catalytic activity/Vol] 18 U/L Normal 14-40 [facility] Comment on above: Order Comment: Speci men Type: BLOOD SPECIMEN Ordering Facility: [facility] Address: [address] [place] [address] Performed By: #### 2 4323-8 #### [id number] [address] [place] [address] [place] Bilirubin [Mass/Vol] 0.5 mg/dL Normal 0.2-1.3 [facility] Comment on above: Order Comment: Speci men Type: BLOOD SPECIMEN Ordering Facility: [facility] Address: [address] [place] [address] Performed By: #### 2 4323-8 #### [facility] CLIA [id number] [address] [place] [address] [place] Calcium [Mass/Vol] 9.7 mg/dL Normal 8.5-10.2 [facility] Comment on above: Order Comment: Speci men Type: BLOOD SPECIMEN Ordering Facility: [facility] Address: [address] [place] [address] Performed By: #### 2 4323-8 #### [facility] CLIA [id number] [address] [place] [address] [place] Chloride [Moles/Vol] 104 mmol/L Normal 97-105 [facility] Comment on above: Order Comment: Speci men Type: BLOOD SPECIMEN Ordering Facility: [facility] Address: [address] [place] [address] Performed By: #### 2 4323-8 #### [facility] CLIA [id number] [address] [place] [address] [place] CO2 [Moles/Vol] 27 mmol/L Normal 22-30 [facility] Comment on above: Order Comment: Speci men Type: BLOOD SPECIMEN Ordering Facility: [facility] Address: [address] [place] [address] Performed By: #### 2 4323-8 #### [facility] [id number] [address] [place] [address] [place] Creatinine [Mass/Vol] 1.00 mg/dL Normal 0.73-1.22 [facility] Comment on above: Order Comment: Speci men Type: BLOOD SPECIMEN Ordering Facility: [facility] Address: [address] [place], [place] [address] Performed By: #### 2 4323-8 #### [facility] [id number] [address] [place] [address] [place] Creatinine and Glomerular filtration rate.predicted panel (S/P/Bld) 78 mL/min/1.73m??? Normal >=60 [facility] Comment on above: Order Comment: Speci men Type: BLOOD SPECIMEN Ordering Facility: [facility] Address: [address] [phone] Result Comment: Nicole mated Glomerular Filtration Rate (eGFR) is calculated using the 2020 CKD-EPI creatinine equation. This equation utilizes serum creatinine, sex, and age as parameters. The creatinine assay has traceable calibration to isotope dilution-mass spectrometry. Refer to KDIGO guidelines for clinical interpretation. In patients with unstable renal function, e.g. those with acute kidney injury, the eGFR may not accurately reflect actual GFR. Performed By: #### 2 4323-8 #### [facility] [id number] [address] [place] [address] [place] Glucose [Mass/Vol] 81 mg/dL Normal 74-99 [facility] Comment on above: Order Comment: Susana rowe Type: BLOOD SPECIMEN Ordering Facility: [facility] Address: [address] [address] Result Comment: The [place] Diabetes Association (ADA) provides guidance for cutoff values for fasting glucose and random glucose. The ADA defines fasting as no caloric intake for at least 8 hours. Fasting plasma glucose results between 100 to 125 mg/dL indicate increased risk for diabetes (prediabetes). Fasting plasma glucose results greater than or equal to 126 mg/dL meet the criteria for diagnosis of diabetes. In the absence of unequivocal hyperglycemia, results should be confirmed by repeat testing. In a patient with classic symptoms of hyperglycemia or hyperglycemic crisis, random plasma glucose results greater than or equal to 200 mg/dL meet the criteria for diagnosis of diabetes. Reference: Standards of Medical Care in Diabetes 2016, [place] Diabetes Association. Diabetes Care. 2016.39(Suppl 1). Performed By: #### 2 4323-8 #### [facility] [id number] [address] [place] [address] [place] Potassium [Moles/Vol] 4.4 mmol/L Normal 3.7-5.1 [facility] Comment on above: Order Comment: Susana rowe Type: BLOOD SPECIMEN Ordering Facility: [facility] Address: [address] [phone] Performed By: #### 2 4323-8 #### [facility] CLIA [id number] [address] [place] [address] [place] Protein [Mass/Vol] 6.9 g/dL Normal 6.3-8.0 [facility] Comment on above: Order Comment: Speci men Type: BLOOD SPECIMEN Ordering Facility: [facility] Address: [address] [place] [address] Performed By: #### 2 4323-8 #### [facility] CLIA [id number] [address] [place] [address] [place] Sodium [Moles/Vol] 140 mmol/L Normal 136-144 [facility] Comment on above: Order Comment: Speci men Type: BLOOD SPECIMEN Ordering Facility: [facility] Address: [address] [place] [address] Performed By: #### 2 4323-8 #### [facility] [id number] [address] [place] [address] [place] Urea nitrogen [Mass/Vol] 18 mg/dL Normal 9-24 [facility] Comment on above: Order Comment: Speci men Type: BLOOD SPECIMEN Ordering Facility: [facility] Address: [address] [place] [address] Performed By: #### 2 4323-8 #### [facility] [id number] [address] [place] [address] [place] Albumin [Mass/Vol] 4.4 g/dL 3.9 - 4.9 g/dL [facility] ALP [Catalytic activity/Vol] 70 U/L 38 - 113 U/L [facility] ALT [Catalytic activity/Vol] 18 U/L 10 - 54 U/L [facility] Anion gap [Moles/Vol] 9 mmol/L 9 - 18 mmol/L [facility] AST [Catalytic activity/Vol] 18 U/L 14 - 40 U/L [facility] Bilirubin [Mass/Vol] 0.5 mg/dL 0.2 - 1 .3 mg/dL [facility] Calcium [Mass/Vol] 9.7 mg/dL 8.5 - 10. 2 mg/dL [facility] Chloride [Moles/Vol] 104 mmol/L 97 - 10 5 mmol/L [facility] CO2 [Moles/Vol] 27 mmol/L 22 - 30 mmol/L [facility] Creatinine [Mass/Vol] 1.00 mg/dL 0.73 - 1.22 mg/dL [facility] Estimated Glomerular Filtration Rate 78 mL/min/1.73m >=60 mL/min/1.73m [facility] Glucose [Mass/Vol] 81 mg/dL 74 - 99 mg/dL [facility] Potassium [Moles/Vol] 4.4 mmol/L 3.7 - 5.1 mmol/L [facility] Protein [Mass/Vol] 6.9 g/dL 6.3 - 8.0 g/dL [facility] Sodium [Moles/Vol] 140 mmol/L 136 - 144 mmol/L [facility] Urea nitrogen [Mass/Vol] 18 mg/dL 9 - 24 mg/dL [facility] HbA1c (Bld)on 02-18-2023 Average glucose Estimated from glycated hemoglobin (Bld) [Mass/Vol] 128 mg/dL [facility] HbA1c (Bld) [Mass fraction] 6.1 % High 4.3 - 5.6 % [facility] Average glucose Estimated from glycated hemoglobin (Bld) [Mass/Vol] 128 mg/dL Normal [facility] Comment on above: Order Comment: Susana rowe Type: BLOOD SPECIMEN Ordering Facility: [facility] Address: [address] [place] [address] Result Comment: eAG: (Estimated average glucose) is a calculated value from HgbA1c and is medical device sales representative of the average blood glucose level in the last 2-3 month period. Performed By: #### 5 7021-8 #### [facility] CLIA [id number] [address] [place] [address] [place] HbA1c (Bld) [Mass fraction] 6.1 % High 4.3-5.6 [facility] Comment on above: Order Comment: Susana rowe Type: BLOOD SPECIMEN Ordering Facility: [facility] Address: [address] [place] [address] Result Comment: [place] Diabetes Association guidelines indicate that patients with HgbA1c in the range 5.7-6.4% are at increased risk for development of diabetes, and intervention by lifestyle modification may be beneficial. HgbA1c greater or equal to 6.5% is considered diagnostic of diabetes. Performed By: #### 5 7021-8 #### [facility] CLIA [id number] [address] [place] [address] [place] Iron and Iron binding capaci ty panelon 02-18-2023 Iron [Mass/Vol] 121 ug/dL Normal 41-186 [facility] Comment on above: Order Comment: Speci men Type: BLOOD SPECIMEN Ordering Facility: [facility] Address: [address] [place] [address] Performed By: #### 3 024-7, 3016-3, 81564-3, LIPNF #### [facility] CLIA [id number] [address] [place] [address] [place] [facility] Iron binding capacity [Mass/Vol] 383 ug/dL Normal 232-386 [facility] Comment on above: Order Comment: Speci men Type: BLOOD SPECIMEN Ordering Facility: [facility] Address: [address] [place] [address] Performed By: #### 3 024-7, 3016-3, 40876-7, LIPNF #### [facility] CLIA [id number] [address] [place] [address] [place] Iron/TIBC [Molar ratio] 31.6 % Normal 15.0-57.0 C [facility] Comment on above: Order Comment: Speci men Type: BLOOD SPECIMEN Ordering Facility: [facility] Address: [address] [place], [place] [address] Performed By: #### 3 024-7, 3016-3, 06647-0, LIPNF #### [facility] CLIA [id number] [address] [place] [address] [place] LIPID PANEL, NONFASTINGon Cholesterol [Mass/Vol] 184 mg/dL Normal <200 [facility] Comment on above: Order Comment: Speci soledad Type: BLOOD SPECIMEN Ordering Facility: [facility] Address: [address] [place] [address] Result Comment: <200 mg/dL, Desirable 200-239 mg/dL, Borderline high >239 mg/dL, High Performed By: #### 3 024-7, 3016-3, 54067-0, LIPNF #### [facility] CLIA [id number] [address] STATES OF [facility] HDL CHOLESTEROL, NF 55 mg/dL Normal >39 [facility] Comment on above: Order Comment: Susana soledad Type: BLOOD SPECIMEN Ordering Facility: [facility] Address: [address] [place] [address] Result Comment: 40-5 9 mg/dL, Acceptable >59 mg/dL, High: Negative risk factor for coronary heart disease <40 mg/dL, Low: Positive risk factor for coronary heart disease Performed By: #### 3 024-7, 3016-3, 13033-5, LIPNF #### [facility] CLIA [id number] [address] STATES OF [facility] LDL CHOLESTEROL, NF 113 mg/dL High <100 [facility] Comment on above: Order Comment: Speci soledad Type: BLOOD SPECIMEN Ordering Facility: [facility] Address: [address] [place] [address] Result Comment: <100 mg/dL, Optimal 100-129 mg/dL, Near optimal/above optimal 130-159 mg/dL, Borderline high 160-189 mg/dL, High >189 mg/dL, Very high Secondary prevention optimal LDL Cholesterol levels are recommended to be < 70 mg/dL Performed By: #### 3 024-7, 3016-3, 30930-3, LIPNF #### [facility] CLIA [id number] [address] OF [facility] LDL/HDL RATIO, NF 2.05 mg/dL Normal <2.54 [facility] Comment on above: Order Comment: Susana rowe Type: BLOOD SPECIMEN Ordering Facility: [facility] Address: [address] [place] [address] Result Comment: Frank bryson: 1. National Cholesterol Education Program ATP III Guideline At-A-Glance Quick Desk Reference: National Heart, Lung, and Blood [place]. National Institutes of Health. 2001: NIH Publication No. 01-3305. 2. An International Atherosclerosis Society position paper: global recommendations for the management of dyslipidemia: executive summary, Atherosclerosis. 2014: 232(2):410-413. Performed By: #### 3 024-7, 3016-3, 49165-8, LIPNF #### [facility] CLIA [id number] [address] [place] [address] [place] NON HDL CHOL, NF 129 mg/dL Normal <130 [facility] Comment on above: Order Comment: Susana rowe Type: BLOOD SPECIMEN Ordering Facility: [facility] Address: [address] [place] [address] Result Comment: <130 mg/dL, Optimal 130-159 mg/dL, Near optimal/above optimal 160-189 mg/dL, Borderline high 190-219 mg/dL, High >219 mg/dL, Very high Secondary prevention optimal non HDL Cholesterol levels are recommended to be <100 mg/dL Performed By: #### 3 024-7, 3016-3, 61141-1, LIPNF #### [facility] CLIA [id number] [address] [place] [address] [place] T CHOL/HDL RATIO NF 3.35 mg/dL Normal <5.10 [facility] Comment on above: Order Comment: Susana rowe Type: BLOOD SPECIMEN Ordering Facility: [facility] Address: [address] [place] [address] Performed By: #### 3 024-7, 3016-3, 92690-7, LIPNF #### [facility] CLIA [id number] [address] [place] [address] [place] TRIGLYCERIDES, NF 81 mg/dL Normal <150 [facility] Comment on above: Order Comment: Speci men Type: BLOOD SPECIMEN Ordering Facility: [facility] Address: [address] [place] [address] Result Comment: <150 mg/dL, Normal 150-199 mg/dL, Borderline high 200-499 mg/dL, High >499 mg/dL, Very high Performed By: #### 3 024-7, 3016-3, 75630-3, LIPNF #### [facility] CLIA [id number] [address] [place] VLDL CHOLESTEROL, NF 16 mg/dL Normal <30 [facility] Comment on above: Order Comment: Speci men Type: BLOOD SPECIMEN Ordering Facility: [facility] Address: [address] [place] [address] Performed By: #### 3 024-7, 3016-3, 30256-3, LIPNF #### [facility] CLIA [id number] [address] [place] [address] [place] T4 Free SerPl-mCncon 023 Free T4 [Mass/Vol] 1.2 ng/dL Normal 0.9-1.7 [facility] Comment on above: Order Comment: Speci men Type: BLOOD SPECIMEN Ordering Facility: [facility] Address: [address] [place] [address] Performed By: #### 3 024-7, 3016-3, 15787-3, LIPNF #### [facility] CLIA [id number] [address] [place] [address] [place] TSH SerPl-aCncon 02-18-2023 TSH Qn 1.260 m[IU]/L Normal 0.270-4.200 [facility] Comment on above: Order Comment: Speci men Type: BLOOD SPECIMEN Ordering Facility: [facility] Address: [address] [place] [address] Performed By: #### 3 024-7, 3016-3, 26528-5, LIPNF #### [facility] CLIA [id number] [address] [place] [address] [place] VITAMIN B1 (THIAMINE), WHOLE BLOODon 02-18-2023 Thiamine (Bld) [Moles/Vol] 180.0 nmol/L Normal 84.3-213.3 [facility] Comment on above: Order Comment: Susana rowe Type: BLOOD SPECIMEN Ordering Facility: [facility] Address: [address] [place], [place] [id number] Result Comment: This assay measures the concentration of thiamine diphosphate (TDP), the primary active form of vitamin B1. Approximately 90 percent of vitamin B1 present in whole blood is TDP. Thiamine and thiamine monophosphate, which comprise the remaining 10 percent, are not measured. This test was developed and its performance characteristics determined by [facility] Path[facility] and Laboratory [facility] [place] [facility] It has not been cleared or approved by the FDA. [facility] is regulated under CLIA as qualified to perform high-complexity testing. This test is used for clinical purposes. It should not be regarded as investigational or for research. Performed By: #### B 1WB #### [facility] CLIA [id number] [address] [place] [address] [place] VITAMIN B6/PYRIDOXINon 02-18 VITAMIN B6 221.1 nmol/L High 20.0-125.0 [facility] Comment on above: Order Comment: Susana rowe Type: BLOOD SPECIMEN Ordering Facility: [facility] Address: [address] [place] [id number] Result Comment: INTE RPRETIVE INFORMATION: Vitamin B6 (Pyridoxal 5-Phosphate) Pyridoxal 5'-phosphate measured in a specimen collected following an 8-hour or overnight fast accurately indicates vitamin B6 nutritional status. Non-fasting specimen concentration reflects recent vitamin intake. This test was developed and its performance characteristics determined by [facility] It has not been cleared or approved by the [place] Food and Drug Administration. This test was performed in a CLIA certified laboratory and is intended for clinical purposes. Performed By: [facility] [address] [place] [address] Software Quality Specialist: James Travis MD, PhD CLIA Number: [id number] Performed By: #### 5 [id number] #### [facility] CLIA [id number] [address] [place] [address] [place] Vit B12 SerPl-mCncon 023 Cobalamin (Vitamin B12) [Mass/Vol] 997 pg/mL Normal 232-1245 [facility] Comment on above: Order Comment: Speci men Type: BLOOD SPECIMEN Ordering Facility: [facility] Address: [address] [place] [address] Performed By: #### 2 132-9 #### [facility] CLIA [id number] [address] [facility] DESK [id number] [place] [address] No Panel InformationOrdered By: Dr. Mccullough on 06-10-2022 Prostate Specific Antigen Total < 0.01 ng/mL 0.0-4.0 [facility] Comment on above: This test was perfor med using the TPSA assay method for [employer] chemistry system. Values obtained with differentassay methods cannot be used interchangably.When changing PSA assays in the course of monitoring apatient, additional sequential testing should be carriedout to confirm baseline values. Absolute lymphocyte countOrd ered By: Dr. Peter on 05-20-2022 Lymphocytes Auto (Unsp spec) [#/Vol] 1.34 10*3/uL 0.83-4.51 [facility] Basophil percentageOrdered B y: Dr. Peter on 05-20-2022 Basophils/100 WBC (Bld) 0.8 % 0-1 [facility] [place] Bilirubin [Mass/Vol] 0.80 mg/dL 0.20-1.00 [facility] Comment on above: For patients on eltr ombopag therapy, use of Dimension [place] TBIL is not recommended. Chloride [Moles/Vol] 108 mmol/L 98-107 [facility] Cholesterol [Mass/Vol] 167 mg/dL <200 [facility] Comment on above: <200 mg/dL Desirable 200-240 mg/dL Borderline >240 mg/dL High Risk Eosinophils/100 WBC (Bld) 4.0 % 0-5 [facility] Glucose [Mass/Vol] 104 mg/dL 74-106 [facility] Comment on above: Fasting Glucose resu lt from 100 to 125 mg/dL suggests IMPAIRED HOMEOSTASIS per A.D.A. criteria. Neutrophils (Bld) [#/Vol] 2.8 10*3/uL 2.0-7.7 [facility] Neutrophils/100 WBC (Bld) 56.2 % 47-70 [facility] Potassium [Moles/Vol] 4.0 mmol/L 3.5-5.1 [facility] Protein [Mass/Vol] 6.8 g/dL 6.4-8.2 [facility] Sodium [Moles/Vol] 142 mmol/L 136-145 [facility] Triglyceride [Mass/Vol] 66 mg/dL <199 [facility] Comment on above: The drugs N-Acetylcy steine and Metamizole may falsely depress this assay.Serum Triglycerides Reference Interval Normal <150 mg/dL Borderline high 150 - 199 mg/dL High 200 - 499 mg/dL Very High > or = 500 mg/dL WBC (Bld) [#/Vol] 5.0 10*3/uL 4.4-11.0 [facility] Blood erythrocytes count (nu mber/volume)Ordered By: Dr. Peter on 05-20-2022 RBC (Bld) [#/Vol] 4.98 10*6/uL 4.6-6.[address] [facility] Blood hemoglobin measurement (mass/volume)Ordered By: Dr. Peter on 05-20-2022 Hemoglobin (Bld) [Mass/Vol] 14.4 g/dL 13.0-16.5 [facility] Blood lymphocytes/100 leukoc ytesOrdered By: Dr. Peter on 05-20-2022 Lymphocytes/100 WBC (Bld) 26.8 % 19-41 [facility] Blood monocytes/100 leukocyt esOrdered By: Dr. Peter on 05-20-2022 Monocytes/100 WBC (Bld) 11.8 % 0-10 [facility] Blood platelet mean volumeOr dered By: Dr. Peter on 05-20-2022 Platelet mean volume (Bld) [Entitic vol] 11.4 fL 6.2-12.0 [facility] Determination of erythrocyte mean corpuscular volume (MCV)Ordered By: Dr. Peter on 05-20-2022 MCV (RBC) [Entitic vol] 89.6 fL 80-94 [facility] [place] Hematocrit Auto (Bld) [Volum e fraction]Ordered By: Dr. Peter on 05-20-2022 Hematocrit (Bld) [Volume fraction] 44.6 % 40-54 [facility] Laboratory - Chemistry and C hemistry - challengeOrdered By: Dr. Peter on 05-20-2022 ALP [Catalytic activity/Vol] 63 U/L 45-117 [facility] ALT [Catalytic activity/Vol] 24 U/L 16-61 [facility] CO2 [Moles/Vol] 31.0 mmol/L 21.0-32.0 [facility] Free T4 [Mass/Vol] 0.91 ng/dL 0.76-1.46 [facility] Globulin (S) [Mass/Vol] 3.2 g/dL 2.2-4.2 [facility] [place] Urea nitrogen/Creatinine [Mass ratio] 17.8 mg/mg 10-20 [facility] Laboratory - Hematology and Cell countsOrdered By: Dr. Peter on 05-20-2022 Erythrocyte distribution width (RBC) [Entitic vol] 44.6 fL 35.1-43.9 [facility] Erythrocyte distribution width (RBC) [Ratio] 13.6 % 11.6-14.6 [facility] Immature granulocytes/100 WBC (Bld) 0.400 % 0.0-0.9 [facility] Comment on above: IG% - Immature Granu locytes (promyelocytes, myelocytes and metamyelocytes) > 1% indicates that a LEFT SHIFT is Present. MCH (RBC) [Entitic mass] 28.9 pg 27.0-32.0 [facility] Nucleated RBC/100 WBC (Bld) [Ratio] 0 % 0-5 [facility] MCHC Auto (RBC) [Mass/Vol]Or dered By: Dr. Peter on 05-20-2022 MCHC (RBC) [Mass/Vol] 32.3 g/dL 32-36 [facility] No Panel InformationOrdered By: Dr. Peter on 05-20-2022 Estimated GFR (MDRD) Amer 86 mL/min >60 [facility] Comment on above: GFR Calc Estimated GFR (MDRD) Non-Af Amer 71 mL/min >60 [facility] Comment on above: Non- GFR Calc Free Triiodothyronine (T3) pg/dL 2.8 pg/mL 2.18-3.98 [facility] Thyroid Stimulating Hormone (TSH) 1.16 uIU/mL 0.358-3.74 [facility] Vitamin D 25-Hydroxy 28.8 ng/mL [facility] Comment on above: Vitamin D 25(OH) Sta tus Range Deficiency <20 ng/mL (50nmol/L) Insufficiency 20 - 30 ng/mL (50 - 75 nmol/L) Sufficiency 30 - 100 ng/mL (75 - 250 nmol/L) Toxicity >100 ng/mL (>250 nmol/L) Platelets bldOrdered By: Dr. Peter on 05-20-2022 Platelets (Bld) [#/Vol] 186 10*3/uL 150-450 [facility] Serum or plasma albumin augie urement (mass/volume)Ordered By: Dr. Peter on 05-20-2022 Albumin [Mass/Vol] 3.6 g/dL 3.2-5.0 [facility] Serum or plasma albumin/glob ulin mass ratioOrdered By: Dr. Peter on 05-20-2022 Albumin/Globulin [Mass ratio] 1.1 {ratio} 0.9-2.4 [facility] Serum or plasma calcium augie urement (mass/volume)Ordered By: Dr. Peter on 05-20-2022 Calcium [Mass/Vol] 8.8 mg/dL 8.5-10.1 [facility] Serum or plasma cholesterol in HDL measurement (mass/volume)Ordered By: Dr. Peter on 05-20-2022 Cholesterol in HDL [Mass/Vol] 57 mg/dL >40 [facility] Comment on above: The drugs N-Acetylcy steine and Metamizole may falsely depress this assay. Reference Range HDL <40 mg/dL Low HDL Cholesterol HDL >or= 60 mg/dL High HDL Cholesterol Serum or plasma cholesterol in VLDL measurement (mass/volume)Ordered By: Dr. Peter on 05-20-2022 Cholesterol in VLDL [Mass/Vol] 13 mg/dL 5-40 [facility] Serum or plasma creatinine m easurement (mass/volume)Ordered By: Dr. Peter on 05-20-2022 Creatinine [Mass/Vol] 1.07 mg/dL 0.70-1.30 [facility] Comment on above: The validity of the calculated GFR & GFRAA in patients over 70 years has not been determined. Clinical correlation is essential. Serum or plasma low density lipoprotein (LDL) cholesterol measurement (mass/volume)Ordered By: Dr. Peter on 05-20-2022 Cholesterol in LDL [Mass/Vol] 97 mg/dL 0-130 [facility] Serum or plasma urea nitroge n measurement (mass/volume)Ordered By: Dr. Peter on 05-20-2022 Urea nitrogen [Mass/Vol] 19 mg/dL 7-18 [facility] Thin prep Papanicolaou smear with manual screeningOrdered By: Dr. Peter on 05-20-2022 Thin prep Papanicolaou smear with manual screening 17 U/L 15-37 [facility] Thin prep Papanicolaou smear with manual screening 3 5-15 [facility] Whole blood hemoglobin A1c/t otal hemoglobin ratio (mass fraction)Ordered By: Dr. Peter on 05-20-2022 HbA1c (Bld) [Mass fraction] 6.4 % 3.8-5.6 [facility] Comment on above: Normal < 5.7 % Predi abetic 5.7 - 6.4 % Diabetic >or= 6.5 % Please note range changes. Basophil percentageon 2021 Testosterone [Mass/Vol] 401 ng/dL 264-916 [facility] [place] Work Phone: Comment on above: Adult male reference interval is based on a population ofhealthy nonobese males (BMI <30) between 19 and 39 yearsold. Lilian et.al. JCEM 2017,102;4014-6528. PMID:[id number]. Free testosterone percentage on 02-05-2022 Testosterone Free/Testosterone.total [Mass fraction] 1.47 % 1.50-4.20 [facility] Work Phone: Comment on above: Performed at: [address] [id number] Director: Enio Almodovar PhD, Phone: [phone] at: [facility] [id number] Director: Kerrie Butts MD, Phone: [phone] Serum or plasma testosterone free measurement (mass/volume)on 02-05-2022 Testosterone Free [Mass/Vol] 5.89 ng/dL 5.00-21.00 [facility] Work Phone: Absolute lymphocyte counton 07-13-2021 Lymphocytes Auto (Unsp spec) [#/Vol] 0.92 10*3/uL 0.83-4.51 [facility] Work Phone: Basophil percentageon 2021 Basophils/100 WBC (Bld) 0.5 % 0-1 [facility] [place] Work Phone: Bilirubin [Mass/Vol] 0.60 mg/dL 0.20-1.00 [facility] Work Phone: Comment on above: For patients on eltr ombopag therapy, use of Dimension [place] TBIL is not recommended. Chloride [Moles/Vol] 104 mmol/L 98-107 [facility] Work Phone: Eosinophils/100 WBC (Bld) 3.1 % 0-5 [facility] Work Phone: Glucose [Mass/Vol] 220 mg/dL 74-106 [facility] Work Phone: Comment on above: Glucose result great er than or equal to 200 mg/dLsuggests DIABETES MELLITUS per A.D.A. criteria. Neutrophils (Bld) [#/Vol] 4.1 10*3/uL 2.0-7.7 [facility] Work Phone: Neutrophils/100 WBC (Bld) 71.1 % 47-70 [facility] Work Phone: Potassium [Moles/Vol] 3.8 mmol/L 3.5-5.1 [place] [facility] Work Phone: Protein [Mass/Vol] 6.9 g/dL 6.4-8.2 [facility] Work Phone: Sodium [Moles/Vol] 140 mmol/L 136-145 [facility] Work Phone: WBC (Bld) [#/Vol] 5.8 10*3/uL 4.4-11.0 [facility] Work Phone: Blood erythrocytes count (nu mber/volume)on 07-13-2021 RBC (Bld) [#/Vol] 5.10 10*6/uL 4.6-6.2 [facility] Work Phone: Blood hemoglobin measurement (mass/volume)on 07-13-2021 Hemoglobin (Bld) [Mass/Vol] 15.0 g/dL 13.0-16.5 [facility] Work Phone: Blood lymphocytes/100 leukoc yteson 07-13-2021 Lymphocytes/100 WBC (Bld) 15.9 % 19-41 [facility] Work Phone: Blood monocytes/100 leukocyt eson 07-13-2021 Monocytes/100 WBC (Bld) 9.1 % 0-10 [facility] [place] Work Phone: Blood platelet mean volumeon 07-13-2021 Platelet mean volume (Bld) [Entitic vol] 11.6 fL 6.2-12.0 [facility] Work Phone: Determination of erythrocyte mean corpuscular volume (MCV)on 07-13-2021 MCV (RBC) [Entitic vol] 88.4 fL 80-94 [facility] [place] Work Phone: Hematocrit Auto (Bld) [Volum e fraction]on 07-13-2021 Hematocrit (Bld) [Volume fraction] 45.1 % 40-54 [facility] Work Phone: Laboratory - Chemistry and C hemistry - challengeon 07-13-2021 ALP [Catalytic activity/Vol] 73 U/L 45-117 [facility] Work Phone: ALT [Catalytic activity/Vol] 29 U/L 16-61 [facility] Work Phone: CO2 [Moles/Vol] 33.0 mmol/L 21.0-32.0 [facility] Work Phone: Globulin (S) [Mass/Vol] 3.4 g/dL 2.2-4.2 [facility] [place] Work Phone: Urea nitrogen/Creatinine [Mass ratio] 14.0 mg/mg 10-20 [facility] Work Phone: Laboratory - Hematology and Cell countson 07-13-2021 Erythrocyte distribution width (RBC) [Entitic vol] 44.6 fL 35.1-43.9 [facility] Work Phone: Erythrocyte distribution width (RBC) [Ratio] 13.7 % 11.6-14.6 [facility] Work Phone: Immature granulocytes/100 WBC (Bld) 0.300 % 0.0-0.9 [facility] Work Phone: Comment on above: IG% - Immature Granu locytes (promyelocytes, myelocytes and metamyelocytes) > 1% indicates that a LEFT SHIFT is Present. MCH (RBC) [Entitic mass] 29.4 pg 27.0-32.0 [facility] Work Phone: Nucleated RBC/100 WBC (Bld) [Ratio] 0 % 0-5 [facility] Work Phone: MCHC Auto (RBC) [Mass/Vol]on 07-13-2021 MCHC (RBC) [Mass/Vol] 33.3 g/dL 32-36 [facility] Work Phone: No Panel Informationon 07-13 Estimated GFR (MDRD) Amer 86 mL/min >60 [facility] Work Phone: Comment on above: GFR Calc Estimated GFR (MDRD) Non-Af Amer 71 mL/min >60 [facility] Work Phone: Comment on above: Non- GFR Calc Platelets bldon 07-13-2021 Platelets (Bld) [#/Vol] 177 10*3/uL 150-450 [facility] Work Phone: Serum or plasma albumin augie urement (mass/volume)on 07-13-2021 Albumin [Mass/Vol] 3.5 g/dL 3.2-5.0 [facility] Work Phone: Serum or plasma albumin/glob ulin mass ratioon 07-13-2021 Albumin/Globulin [Mass ratio] 1.0 {ratio} 0.9-2.4 [facility] Work Phone: Serum or plasma calcium augie urement (mass/volume)on 07-13-2021 Calcium [Mass/Vol] 8.7 mg/dL 8.5-10.1 [facility] Work Phone: Serum or plasma creatinine m easurement (mass/volume)on 07-13-2021 Creatinine [Mass/Vol] 1.07 mg/dL 0.70-1.30 [facility] Work Phone: Comment on above: The validity of the calculated GFR & GFRAA in patients over 70 years has not been determined. Clinical correlation is essential. Serum or plasma urea nitroge n measurement (mass/volume)on 07-13-2021 Urea nitrogen [Mass/Vol] 15 mg/dL 7-18 [facility] Work Phone: Thin prep Papanicolaou smear with manual screeningon 07-13-2021 Thin prep Papanicolaou smear with manual screening 17 U/L 15-37 [facility] Work Phone: Thin prep Papanicolaou smear with manual screening 3 5-15 [facility] Work Phone: Whole blood hemoglobin A1c/t otal hemoglobin ratio (mass fraction)on 07-13-2021 HbA1c (Bld) [Mass fraction] 6.1 % 3.8-5.6 [facility] Work Phone: Comment on above: Normal < 5.7 % Predi abetic 5.7 - 6.4 % Diabetic >or= 6.5 % Please note range changes. No Panel Informationon 07-03 Prostate Specific Antigen Total < 0.01 ng/mL 0.0-4.0 [facility] Work Phone: Comment on above: This test was perfor med using the TPSA assay method for [employer] chemistry system. Values obtained with differentassay methods cannot be used interchangably.When changing PSA assays in the course of monitoring apatient, additional sequential testing should be carriedout to confirm baseline values. Vital Signs Date Time Vital Sign Value Performing Clinician Stuarti yulissa 03-13-2023 09:23-0400 Body height 165.[address] Ruby Peter Work Phone: [facility] 02-19-2023 10:01-0400 Body mass index (BMI) [Ratio] 23.4 kg/m2 Dr. Ruby Peter Work Phone: [facility] 02-19-2023 10:01-0400 Body temperature 98 [degF] Dr. Ruby Peter Work Phone: [facility] 02-19-2023 10:01-0400 Body weight 63.[address] Ruby Peter Work Phone: [facility] 02-19-2023 10:01-0400 Diastolic blood pressure 70 mm[Hg] Dr. Ruby Peter Work Phone: [facility] 02-19-2023 10:01-0400 Heart rate 62 /min Dr. Ruby Peter Work Phone: [facility] 02-19-2023 10:01-0400 Respiratory rate 16 /min Dr. Ruby Petre Work Phone: [facility] 02-19-2023 10:01-0400 SaO2% (BldA) [Mass fraction] 96 % Dr. Ruby Peter Work Phone: [facility] 02-19-2023 10:01-0400 Systolic blood pressure 121 mm[Hg] Dr. Ruby Peter Work Phone: [facility] 02-18-2023 10:08-0400 Body height 162.6 cm Deb Cioce KNOCKDOWN WORKER.STAFFING ADMINISTRATOR Work Phone: [facility] 02-18-2023 10:08-0400 Body weight 63.78 kg Deb Cioce KNOCKDOWN WORKER.STAFFING ADMINISTRATOR Work Phone: [facility] 02-18-2023 10:08-0400 Diastolic blood pressure 72 mm[Hg] Deb Cioce KNOCKDOWN WORKER.STAFFING ADMINISTRATOR Work Phone: [facility] 02-18-2023 10:08-0400 Heart rate 64 /min Deb Cioce KNOCKDOWN WORKER.STAFFING ADMINISTRATOR Work Phone: [facility] 02-18-2023 10:08-0400 SaO2% (BldA) [Mass fraction] 97 % Deb Cioce KNOCKDOWN WORKER.STAFFING ADMINISTRATOR Work Phone: [facility] 02-18-2023 10:08-0400 Systolic blood pressure 122 mm[Hg] Deb Cioce KNOCKDOWN WORKER.STAFFING ADMINISTRATOR Work Phone: [facility] 06-19-2022 10:58-0500 Body temperature 97.2 [degF] Dr. Ruby Peter Work Phone: [facility] 06-19-2022 10:58-0500 Body weight 65.[address] Ruby Peter Work Phone: [facility] 06-19-2022 10:58-0500 Diastolic blood pressure 75 mm[Hg] Dr. Ruby Peter Work Phone: [facility] 06-19-2022 10:58-0500 Heart rate 59 /min Dr. Ruby Peter Work Phone: [facility] 06-19-2022 10:58-0500 Respiratory rate 16 /min Dr. Ruby Peter Work Phone: [facility] 06-19-2022 10:58-0500 SaO2% (BldA) [Mass fraction] 96 % Dr. Ruby Peter Work Phone: [facility] 06-19-2022 10:58-0500 Systolic blood pressure 135 mm[Hg] Dr. Ruby Peter Work Phone: [facility] 05-08-2022 08:07-0500 Body temperature 97.2 [degF] Dr. Ruby Peter Work Phone: [facility] 05-08-2022 08:07-0500 Body weight 65.[address] Ruby Peter Work Phone: [facility] 05-08-2022 08:07-0500 Diastolic blood pressure 77 mm[Hg] Dr. Ruby Peter Work Phone: [facility] 05-08-2022 08:07-0500 Heart rate 73 /min Dr. Ruby Peter Work Phone: [facility] 05-08-2022 08:07-0500 Respiratory rate 16 /min Dr. Ruby Peter Work Phone: [facility] 05-08-2022 08:07-0500 SaO2% (BldA) [Mass fraction] 96 % Dr. Ruby Peter Work Phone: [facility] 05-08-2022 08:07-0500 Systolic blood pressure 142 mm[Hg] Dr. Ruby Peter Work Phone: [facility] 01-30-2022 14:09-0400 Body temperature 96.8 [degF] Dr. Ruby Peter Work Phone: [facility] Work Phone: 01-30-2022 14:09-0400 Body weight 65.[address] Ruby Peter Work Phone: [facility] Work Phone: 01-30-2022 14:09-0400 Diastolic blood pressure 75 mm[Hg] Dr. Ruby Peter Work Phone: [facility] Work Phone: 01-30-2022 14:09-0400 Heart rate 69 /min Dr. Ruby Peter Work Phone: [facility] Work Phone: 01-30-2022 14:09-0400 Respiratory rate 16 /min Dr. Ruby Peter Work Phone: [facility] Work Phone: 01-30-2022 14:09-0400 SaO2% (BldA) [Mass fraction] 94 % Dr. Ruby Peter Work Phone: [facility] Work Phone: 01-30-2022 14:09-0400 Systolic blood pressure 135 mm[Hg] Dr. Ruby Peter Work Phone: [facility] Work Phone: 10-09-2021 15:35-0400 Body temperature 98.4 [degF] Dr. Ruby Peter Work Phone: [facility] Work Phone: 10-09-2021 15:35-0400 Diastolic blood pressure 73 mm[Hg] Dr. Ruby Peter Work Phone: [facility] Work Phone: 10-09-2021 15:35-0400 Heart rate 62 /min Dr. Ruby Peter Work Phone: [facility] Work Phone: 10-09-2021 15:35-0400 Respiratory rate 16 /min Dr. Ruby Peter Work Phone: [facility] Work Phone: 10-09-2021 15:35-0400 SaO2% (BldA) [Mass fraction] 99 % Dr. Ruby Peter Work Phone: [facility] Work Phone: 10-09-2021 15:35-0400 Systolic blood pressure 126 mm[Hg] Dr. Ruby Peter Work Phone: [facility] Work Phone: 10-09-2021 12:37-0400 Body height 165.[address] Ruby Peter Work Phone: [facility] Work Phone: 10-09-2021 12:37-0400 Body mass index (BMI) [Ratio] 23.3 kg/m2 Dr. Ruby Peter Work Phone: [facility] Work Phone: 10-09-2021 12:37-0400 Body weight 63.[address] Ruby Peter Work Phone: [facility] Work Phone: 09-18-2021 15:33-0400 Body temperature 98.8 [degF] Dr. Compa Urbano Work Phone: [facility] Work Phone: 09-18-2021 15:33-0400 Diastolic blood pressure 62 mm[Hg] Dr. Compa Urbano Work Phone: [facility] Work Phone: 09-18-2021 15:33-0400 Heart rate 58 /min Dr. Compa Urbano Work Phone: [facility] Work Phone: 09-18-2021 15:33-0400 Respiratory rate 16 /min Dr. Compa Urbano Work Phone: [facility] Work Phone: 09-18-2021 15:33-0400 SaO2% (BldA) [Mass fraction] 97 % Dr. Compa Urbano Work Phone: [facility] Work Phone: 09-18-2021 15:33-0400 Systolic blood pressure 128 mm[Hg] Dr. Compa Urbano Work Phone: [facility] Work Phone: 09-18-2021 11:51-0400 Body height [address] Compa Urbano Work Phone: [facility] Work Phone: 09-18-2021 11:51-0400 Body mass index (BMI) [Ratio] 23.5 kg/m2 Dr. Compa Urbano Work Phone: [facility] Work Phone: 09-18-2021 11:51-0400 Body weight [address] Compa Urbano Work Phone: [facility] Work Phone: 07-03-2021 12:01-0500 Body temperature 95.6 [degF] Dr. Compa Urbano Work Phone: [facility] Work Phone: 07-03-2021 12:01-0500 Body weight 65.[address] Compa Urbano Work Phone: [facility] Work Phone: 07-03-2021 12:01-0500 Diastolic blood pressure 78 mm[Hg] Dr. Compa Urbano Work Phone: [facility] Work Phone: 07-03-2021 12:01-0500 Heart rate 62 /min Dr. Compa Urbano Work Phone: [facility] Work Phone: 07-03-2021 12:01-0500 Respiratory rate 16 /min Dr. Compa Urbano Work Phone: [facility] Work Phone: 07-03-2021 12:01-0500 SaO2% (BldA) [Mass fraction] 98 % Dr. Compa Urbano Work Phone: [facility] Work Phone: 07-03-2021 12:01-0500 Systolic blood pressure 140 mm[Hg] Dr. Compa Urbano Work Phone: [facility] Work Phone: 06-05-2021 13:07-0500 Body mass index (BMI) [Ratio] 24.3 kg/m2 Dr. Compa Urbano Work Phone: [facility] Work Phone: 06-05-2021 13:07-0500 Body temperature 98.4 [degF] Dr. Compa Urbano Work Phone: [facility] Work Phone: 06-05-2021 13:07-0500 Body weight 66.[address] Compa Urbano Work Phone: [facility] Work Phone: 06-05-2021 13:07-0500 Diastolic blood pressure 70 mm[Hg] Dr. Compa Urbano Work Phone: [facility] Work Phone: 06-05-2021 13:07-0500 Heart rate 98 /min Dr. Compa Urbano Work Phone: [facility] Work Phone: 06-05-2021 13:07-0500 Respiratory rate 16 /min Dr. Compa Urbano Work Phone: [facility] Work Phone: 06-05-2021 13:07-0500 SaO2% (BldA) [Mass fraction] 99 % Dr. Compa Urbano Work Phone: [facility] Work Phone: 01-05-2022 13:07-0500 Systolic blood pressure 120 mm[Hg] Dr. Compa Urbano Work Phone: [facility] Work Phone: Encounters Encounter Date Encounter Type Care Provider Facility Start: 08-26-2024 End: 08-26-2024 ambulatory Laryluis Hindser Facility:[facility] Start: 08-04-2024 End: 08-04-2024 ambulatory Leann Ovalle Facility:[facility] Start: 04-08-2024 End: 04-08-2024 ambulatory Chalon Clarita Facility:[facility] Start: 03-14-2024 End: 03-14-2024 ambulatory Chalon Clarita Facility:[facility] Start: 12-17-2023 End: 12-17-2023 ambulatory Chalon Clarita Facility:[facility] Start: 12-01-2023 End: 12-01-2023 ambulatory Chalon Clarita Facility:[facility] Start: 11-17-2023 ambulatory Garfield Cat [facility] Start: 11-17-2023 End: 11-17-2023 ambulatory Chalon Clarita [facility] [facility] Start: 11-14-2023 End: 11-14-2023 ambulatory Chalon Clarita Facility:[facility] Start: 11-05-2023 End: 11-05-2023 ambulatory Chalon Clarita Facility:[facility] Start: 09-29-2023 End: 09-29-2023 ambulatory Leann Ovalle Facility:[facility] Start: 05-23-2023 End: 05-23-[address] Ruby Peter Work Phone: [facility] Work Phone: Start: 05-23-2023 End: 05-23-[address] Ruby Peter Work Phone: [facility] Work Phone: Start: 03-16-2023 End: 03-16-[address] Ruby Peter Work Phone: [facility] Work Phone: Start: 02-19-2023 End: 02-19-[address] Ruby Peter Work Phone: [facility] Work Phone: Start: 02-18-2023 End: 02-19-2023 ambulatory DEB MONTILLA Facility:[facility] Start: 02-18-2023 End: 02-18-2023 Patient encounter procedure Deb Montilla KNOCKDOWN WORKER.STAFFING ADMINISTRATOR Work Phone: Endocrinology Comment on above: Prediabetes (Primary Dx) Start: 06-19-2022 End: 06-19-[address] Ruby Peter Work Phone: [facility] [place] Start: 06-10-2022 End: 06-10-[address] Ruby Peter Work Phone: [facility] Work Phone: Start: 06-10-2022 End: 06-10-[address] Ruby Pteer Work Phone: [facility], Specimen Start: 05-20-2022 End: 05-20-[address] Ruby Peter Work Phone: [facility] Work Phone: Start: 05-20-2022 End: 05-20-[address] Ruby Peter Work Phone: [facility] Start: 05-08-2022 End: 05-08-[address] Ruby Peter Work Phone: [facility] [place] Start: 02-05-2022 End: 02-05-[address] Ruby Peter Work Phone: [facility] Work Phone: Start: 02-05-2022 End: 02-05-[address] Ruby Peter Work Phone: [facility] Start: 01-30-2022 End: 01-30-[address] Ruby Peter Work Phone: [facility] [place] Start: 10-09-2021 End: 10-09-2021 Admission to same day surgery center [facility] Start: 09-18-2021 End: 09-18-2021 Admission to same day surgery center [facility] Compa Urbano [facility] Start: 09-05-2021 Non-patient / Non-visit Dr. Mary Urbano Work Phone: [facility] Start: 07-13-2021 End: 07-13-[address] Compa Urbano Work Phone: [facility] Start: 07-03-2021 End: 07-03-[address] Compa Urbano Work Phone: [facility] Start: 07-03-2021 End: 07-03-[address] Compa Urbano Work Phone: [facility] Start: 06-24-2021 Non-patient / Non-visit Dr. Mary Urbano Work Phone: [facility] Start: 06-24-2021 End: 06-24-[address] Compa Urbano Work Phone: [facility] Start: 06-05-2021 End: 06-05-[address] oCmpa Urbano Work Phone: [facility] Start: 08-19-2017 End: 08-20-2017 Ambulatory Compa Luo Facility:[facility] [place] Procedures Date Procedure Procedure Detail Performing Clinician Start: 10-09-2021 Interstim Therapy 2 (Not Applicable) Dr. Ruby Peter Work Phone: Start: 10-09-2021 End: 10-09-[address] Ruby Peter Work Phone: Start: 09-18-2021 Pelvis X-ray Dr. Ruby Peter Work Phone: Start: 09-18-[address] Compa Urbano Work Phone: Start: 09-18-2021 Interstim Therapy 1 (Not Applicable) Dr. Compa Urbano Work Phone: Start: 06-24-2021 Radionuclide imaging of perfusion of myocardium under exercise stress Dr. Cmopa Urbano Work Phone: History of repair of inguinal hernia Hx of bilateral inguinal hernia repair Dr. Compa Urbano Work Phone: History of tonsillectomy History of tonsillectomy and adenoidectomy Dr. Compa Urbano Work Phone: Plan of Treatment Date Care Activity Detail Author Start: 02-18-2026 Diabetes Screening Diabetes Screenin g [facility] Start: 02-19-2024 BP Controlled (<130/80) BP Controlled (<130/80) [facility] Start: 02-18-2023 End: 04-20-2023 25-hydroxyvitamin D3 [Mass/volume] in Serum or Plasma [facility] Work Phone: Comment on above: Expected: 02/18/2023 , Expires: 04/20/2023 Start: 02-18-2023 End: 04-20-2023 ALBUMIN/CREAT RATIO RND UR [facility] Work Phone: Comment on above: Expected: 02/18/2023 , Expires: 04/20/2023 Start: 02-18-2023 End: 04-20-2023 Cobalamin (Vitamin B12) [Mass/volume] in Serum or Plasma [facility] Work Phone: Comment on above: Expected: 02/18/2023 , Expires: 04/20/2023 Start: 02-18-2023 End: 04-20-2023 Iron and Iron binding capacity panel - Serum or Plasma [facility] Work Phone: Comment on above: Expected: 02/18/2023 , Expires: 04/20/2023 Start: 02-18-2023 End: 04-20-2023 LIPID PANEL, NONFASTING [facility] Work Phone: Comment on above: Expected: 02/18/2023 , Expires: 04/20/2023 Start: 02-18-2023 End: 04-20-2023 Pyridoxine [Mass/volume] in Serum or Plasma [facility] Work Phone: Comment on above: Expected: 02/18/2023 , Expires: 04/20/2023 Start: 02-18-2023 End: 04-20-2023 Thyrotropin [Units/volume] in Serum or Plasma [facility] Work Phone: Comment on above: Expected: 02/18/2023 , Expires: 04/20/2023 Start: 02-18-2023 End: 04-20-2023 Thyroxine (T4) free [Mass/volume] in Serum or Plasma [facility] Work Phone: Comment on above: Expected: 02/18/2023 , Expires: 04/20/2023 Start: 02-18-2023 End: 04-20-2023 VITAMIN B1 (THIAMINE), WHOLE BLOOD [facility] Work Phone: Comment on above: Expected: 02/18/2023 , Expires: 04/20/2023 Start: 01-30-2023 Influenza vaccination Influenza Vacc ine (#1) [facility] Start: 07-21-2022 Covid-19 Vaccine (6 - Moderna series) Covid-19 Vaccine (6 - Moderna series) [facility] Start: 06-01-2022 Advance Directive Discussion Advance Directive Discussion [facility] Start: 09-18-2021 Pelvis X-ray Pelvis 1 or 2 Views [facility] Work Phone: Start: 09-18-2021 Anes integ musc & nr v head neck&posterior trunk ANESTH HEAD/NECK/PTRUNK [facility] Work Phone: Start: 09-18-2021 Prq impltj neurostim eltrd sacral nrve w/imaging IMPLANT NEUROELECTRODES [facility] Work Phone: Start: 03-15-2011 Pneumococcal Vaccine : 65+ (2 - PCV) Pneumococcal Vaccine: 65+ (2 - PCV) [facility] Start: 1995 Shingrix Vaccine (1 of 2) Shingrix Vaccine (1 of 2) [facility] Start: 1964 Urine microalbumin profile DTaP,Tdap,Td Vaccine (1 - Tdap) [facility] Start: 1963 Annual PCP Team Chronic Disease Visit Annual PCP Team Chronic Disease Visit [facility] Start: 1963 Hepatitis C Screening Hepatitis C [facility] Patient referral [facility] Work Phone: Testosterone Free [Mass/volume] in Serum or Plasma [facility] Work Phone: Testosterone measurement [facility] Work Phone: Immunizations Immunization Date Immunization Notes Care Provider Mike stephenson 03-16-2023 influenza, injectabl e, quadrivalent, preservative free Dr. Ruby Peter Work Phone: [facility] 03-11-2022 influenza virus vacc ine, unspecified formulation Deb Cioce KNOCKDOWN WORKER.STAFFING ADMINISTRATOR Work Phone: [facility] 03-01-[address] Compa Urbano Work Phone: [facility] 04-05-2012 influenza virus vacc ine, unspecified formulation Deb Cioce KNOCKDOWN WORKER.STAFFING ADMINISTRATOR Work Phone: [facility] 03-15-2010 pneumococcal polysaccharide vaccine, 23 valent Deb Cioce KNOCKDOWN WORKER.STAFFING ADMINISTRATOR Work Phone: [facility] Payers Date Payer Category Payer Self-pay [id number] 2019 Medicare [id number] 2017 Medicare 2016 Unknown [id number] 2011 Medicare ANTH MEDICARE PPO [id number] 2010 Medicare [id number] Medicare [id number] Unknown [id number] 2.16.8 [id number] Unknown [id number] 2.16.8 [id number] Unknown [id number] 2.16.8 [id number] Unknown [id number] 2.16.8 [id number] Unknown [id number] 2.16.8 [id number] Unknown [id number] 2.16.8 [id number] Unknown [id number] 2.16.8 [id number] Unknown [id number] 2.16.8 [id number] Unknown [id number] 2.16.8 [id number] Unknown [id number] 2.16.8 [id number] Unknown [id number] 2.16.8 [id number] Social History Date Type Detail Facility Start: 09-11-2021 End: 03-16-2023 Tobacco smoking status NHIS Unknown if ever smoked [facility] Start: 11-02-2019 Non-smoker [facility] Start: 1945 Sex Assigned At Male [place] Start: 02-18-2023 Tobacco smoking stat us MAIS Never smoked tobacco [facility] Start: 02-18-2023 Tobacco use and exposure Smokeless tobacco non-user [facility] Start: 02-18-2023 Alcohol intake Current drinke r of alcohol (finding) [facility] Start: 02-18-2023 History of Social function [facility] Start: 02-18-2023 Tobacco use panel [facility] National Score (1-100), lower number is lower risk 75 [facility] Start: 10-30-2010 Alcohol Comment seldom [facility] Start: 1945 Sex Assigned At Not on file C [facility] Medical Equipment Procedure Code Equipment Code Equipment Origin al Text Equipment Identifier Dates CLIP,HEMALEXANDRU ELIZABETH [employer] FDA Start: 11-09-2019 CLIP,HEMALEXANDRU ELIZABETH [employer] FDA Start: 11-09-2019 CLIP,HEMALEXANDRU ELIZABETH [employer] FDA Start: 11-09-2019 CLIP,HEMALEXANDRU ELIZABETH [employer] FDA Start: 11-09-2019 CLIPHEMALEXANDRU ELIZABETH [employer] FDA Start: 11-09-2019 SERENAHEMALEXANDRU PATHAK FDA Start: 11-09-2019 CLIPHEMALEXANDRU PATHAK FDA Start: 11-09-2019 CLIPHEMALEXANDRU ELIZABETH [employer] FDA Start: 11-09-2019 CLIPHEMALEXANDRU PATHAK FDA Start: 11-09-2019 CLIP,HEMALEXANDRU PATHAK FDA Start: 11-09-2019 CLIP,HEMALEXANDRU PATHAK FDA Start: 11-09-2019 CLIP,HEMALEXANDRU PATHAK FDA Start: 11-09-2019 CLIPHEMALEXANDRU [place] Tu PATHAK FDA Start: 11-09-2019 CLIPHEMALEXANDRU PATHAK FDA Start: 11-09-2019 LEAD KIT 28CM BLADDER STIM FDA Start: 09-18-2021 SERENAHEMALEXANDRU PATHAK FDA Start: 11-09-2019 CLIPHEMALEXANDRU PATHAK FDA Start: 11-09-2019 CLIPHEMALEXANDRU PATHAK FDA Start: 11-09-2019 CLIPHEMALEXANDRU ELIZABETH [employer] FDA Start: 11-09-2019 CLIP,KRISALEXANDRU PATHAK FDA Start: 11-09-2019 CLIPALYSON FDA Start: 11-09-2019 CLIP,ALYSON PATHAK FDA Start: 11-09-2019 LEAD KIT 28CM BLADDER STIM FDA Start: 09-18-2021 NEUROSTIM ,INTER STIM X INS FDA Start: 10-09-2021 CLIP,HEMALEXANDRU PATHAK FDA Start: 11-09-2019 CLIP,HEMALEXANDRU PATHAK FDA Start: 11-09-2019 CLIP,HEMALEXANDRU PATHAK FDA Start: 11-09-2019 CLIP,HEMALEXANDRU PATHAK FDA Start: 11-09-2019 CLIP,KRISALEXANDRU PATHAK FDA Start: 11-09-2019 CLIP,ALYSON PATHAK FDA Start: 11-09-2019 CLIP,KRISALEXANDRU PATHAK FDA Start: 11-09-2019 LEAD KIT 28CM BLADDER STIM FDA Start: 09-18-2021 NEUROSTIM ,INTER STIM X INS FDA Start: 10-09-2021 CLIP,ALYSON PATHAK FDA Start: 11-09-2019 CLIP,KRISALEXANDRU PATHAK FDA Start: 11-09-2019 CLIP,KRISALEXANDRU PATHAK FDA Start: 11-09-2019 CLIPKRISALEXANDRU PATHAK FDA Start: 11-09-2019 CLIP,KRISALEXANDRU PATHAK FDA Start: 11-09-2019 CLIPKRISALEXANDRU PATHAK FDA Start: 11-09-2019 CLIPKRISALEXANDRU PATHAK FDA Start: 11-09-2019 LEAD KIT 28CM BLADDER STIM FDA Start: 09-18-2021 NEUROSTIM ,INTER STIM X INS FDA Start: 10-09-2021 CLIPKRISALEXANDRU PATHAK FDA Start: 11-09-2019 CLIPHEMALEXANDRU PATHAK FDA Start: 11-09-2019 CLIPHEMALEXANDRU PATHAK FDA Start: 11-09-2019 CLIPALYSON LG FDA Start: 11-09-2019 CLIPHEMALEXANDRU PATHAK FDA Start: 11-09-2019 CLIPKRISALEXANDRU PATHAK FDA Start: 11-09-2019 CLIP,ALYSON PATHAK FDA Start: 11-09-2019 LEAD KIT 28CM BLADDER STIM FDA Start: 09-18-2021 NEUROSTIM ,INTER STIM X INS FDA Start: 10-09-2021 Blood Sugar Diagnostic (Embrace Pro Test Strips) strip Start: 12-31-2022 Lancets (Embrace Lancets) 30 gauge misc Start: 12-31-2022 Blood Sugar Diagnostic (Embrace Pro Test Strips) strip Start: 12-23-2022 End: 12-23-2022 Blood Sugar Diagnostic (Embrace Pro Test Strips) strip Start: 12-23-2022 End: 12-31-2022 Lancets (Embrace Lancets) 30 gauge misc Start: 12-23-2022 End: 12-23-2022 Lancets (Embrace Lancets) 30 gauge misc Start: 12-23-2022 End: 12-31-2022 Mental Status Date Assessment Result Facility 10-09-2021 Cognitive function Voice/Name [facility] Work Phone: 09-18-2021 Cognitive function Voice/Name [facility] Work Phone: Progress note 02-18-2023 Note Date & Type Note Facility 02-18-2023 Note HNO ID: [id number] Author: Deb Montilla APRN.STAFFING ADMINISTRATOR Service: ? Author Type: Nurse Practitioner Type: Progress Notes Filed: 02/18/2023 11:01 AM Note Text: NEW CONSULT OFFICE PROGRESS NOTE Reason for Consultation: PRE DIABETES Referring Physician: SELF My final recommendations will be communicated back to the requesting physician by way of shared Medical record or letter via [place] mail. HISTORY OF PRESENT ILLNESS; Venessa Álvarez is a 77 year old MALE [...] has no known microvascular complications of diabetes. Venessa has no know macrovascular complications of diabetes.. DM Education No Knows how to carb count No DIETARY HISTORY: Breakfast: at home - cereal w milk OR eggs/toast IF OUT - blueberry pancakes/liu oanh w several eggs, coffee Lunch apple with PB OR celery with PB OR - eats out - [employer] OR [employer] OR fast food -burger/fries OR roast [...] Procedure Laterality Date COLONOSCOP W/ OR W/O [facility] SPEC 07/15/12 Colonoscopy repeat 5 years PAST [...] 122/72 Pulse 64 Ht 162.6 cm (5' 4) Wt 63.8 kg (140 lb 9.6 oz) [...] X 3 A (more content not included)... [facility] History of Present illness Narrative 02-18-2023 Deb Montilla APRN.[facility] - 02/18/2023 10:15 AM EDT Note Date & Type Note Facility 02-18-2023 History of Presen t illness Narrative NEW CONSULT OFFICE PROGRESS NOTE Reason for Consultation: PRE DIABETES Referring Physician: SELF My final recommendations will be communicated back to the requesting physician by way of shared Medical record or letter via [place] mail. HISTORY OF PRESENT ILLNESS; Venessa Álvarez is a 77 year old MALE [...] has no known microvascular complications of diabetes. Venessa has no know macrovascular complications of diabetes.. DM Education No Knows how to carb count No DIETARY HISTORY: Breakfast: at home - cereal w milk OR eggs/toast IF OUT - blueberry pancakes/liu max w several eggs, coffee Lunch apple with PB OR celery with PB OR - eats out - [employer] OR [employer] OR fast food -burger/fries OR roast [...] Procedure Laterality Date COLONOSCOP W/ OR W/O [facility] SPEC 07/15/12 Colonoscopy repeat 5 years PAST [...] 122/72 Pulse 64 Ht 162.6 cm (5' 4) Wt 63.8 kg (140 lb 9.6 oz) [...] WHOLE BLOOD, VITAMIN B6/PYRIDOXIN, IRON + TIBC Deb Montilla CNP documented in this encounter [facility] History of Past illness Narrative 01-24-2011 Note Date & Type Note Facility 01-24-2011 History of Past i llness Narrative Problem Noted Date Diagnosed Date Resolved Date Irritated//Inflamed Seborrheic Keratosis 01/24/2011 11/13/2011 Actinic keratoses: Premalignant AK's 01/22/2011 11/13/2011 Other seborrheic keratosis 01/22/2011 0 11/13/2011 Melanocytic nevus of trunk 01/22/2011 0 11/13/2011 Intradermal nevus 01/22/2011 11/13/2011 Actinic skin damage 01/22/2011 11/13/19 12 documented as of this encounter (statuses as of 02/18/2023) [facility] Evaluation note Note Date & Type Note Facility Evaluation note Diagnosis Onset Date Anxiety and depression acute Dyspnea on exertion acute Hyperlipemia acute HTN (hypertension) chronic Anxiety and depression acute Chronic fatigue and malaise acute Tiredness acute [facility] Work Phone: Evaluation note Note Date & Type Note Facility Evaluation note Diagnosis Onset Date Anxiety and depression acute Chronic fatigue and malaise acute Tiredness acute [facility] Work Phone: Evaluation note Note Date & Type Note Facility Evaluation note Diagnosis Onset Date Anxiety and depression acute Chronic fatigue and malaise acute Dizziness acute Hyperlipemia acute Sleep apnea in adult acute HTN (hypertension) chronic [facility] Work Phone: Evaluation note Note Date & Type Note Facility Evaluation note Diagnosis Onset Date Anxiety and depression acute Chronic fatigue and malaise acute Dizziness acute Hyperlipemia acute Sleep apnea in adult acute HTN (hypertension) chronic Anxiety and depression acute Hx of colonoscopy acute Hyperlipemia acute Prostate cancer acute HTN (hypertension) chronic Medicare annual wellness visit, subsequent noneactive [facility] Work Phone: Evaluation note Note Date & Type Note Facility Evaluation note Diagnosis Onset Date Anxiety and depression acute Hx of colonoscopy acute Hyperlipemia acute Prostate cancer acute HTN (hypertension) chronic Medicare annual wellness visit, subsequent noneactive Anxiety and depression acute Hyperlipemia acute Imbalance acute HTN (hypertension) [facility] Work Phone: Evaluation note Note Date & Type Note Facility Evaluation note Diagnosis Prediabetes- Primary Other abnormal glucose documented in this encounter [facility] Evaluation note Note Date & Type Note Facility Evaluation note Diagnosis Onset Date Abdominal fullness acute Anxiety and depression acute Need for influenza vaccination acute [facility] Work Phone: Summary Purpose Family History No Family History Records Found Relationship Condition Age at Onset Recorded Date/T reynold Not Specified Arthritis Unknown Diabetes mellitus Unknown Cardiac disease Unknown Hypertension Unknown mother Arthritis Unknown father Cardiac disease Unknown Depression Unknown brother Diabetes mellitus Unknown Advance Directives No Advanced Directives Records Found Advance Directive Response Recorded Date/ Time Name of Medical Power of Winch Driver September 11, 2021 2:02pm Living Will Yes September 11, 2021 2:21pm Power of Winch Driver Yes September 11 2:21pm Advance Directive Response Recorded Date/ Time Name of Medical Power of Winch Driver September 11, 2021 2:02pm Living Will Yes October 09, 2021 8 :00am Power of Winch Driver Yes October 09, 2021 8:00am Advance Directive Response Recorded Date/ Time Living Will Yes October 09, 2021 8 :00am Power of Winch Driver Yes October 09, 2021 8:00am Advance Directive Response Recorded Date/ Time Living Will Yes October 09, 2021 7 :00am Power of Winch Driver Yes October 09, 2021 7:00am Advance Directive Response Recorded Date/ Time Living Will Yes March 13 8:23am Power of Winch Driver Yes March 13, 2023 8:23am Chief Complaint and Reason for Visit Chief Complaint Depression/HIGH BP DYSPNEA/FATIGUE DYSPNEA/FATIGUE 1 M FU E ORDER Amb Documentation INTERSTIM THERAPY 1 Reason for Visit Anxiety and depressi on Dyspnea on exertion Hyperlipemia HTN (hypertension) Anxiety and depression Chronic fatigue and malaise Tiredness Chief Complaint DYSPNEA/FATIGUE DYSPNEA/FATIGUE 1 M FU E ORDER Amb Documentation INTERSTIM THERAPY 1 Reason for Visit Anxiety and depressi on Chronic fatigue and malaise Tiredness Chief Complaint dizziness Reason for Visit Anxiety and depressi on Chronic fatigue and malaise Dizziness Hyperlipemia Sleep apnea in adult HTN (hypertension) Chief Complaint dizziness YEARLY WELLNESS INT LABS Reason for Visit Anxiety and depressi on Chronic fatigue and malaise Dizziness Hyperlipemia Sleep apnea in adult HTN (hypertension) Anxiety and depression Hx of colonoscopy Hyperlipemia Prostate cancer HTN (hypertension) Medicare annual wellness visit, subsequent Chief Complaint YEARLY WELLNESS INT LABS Balance issues Reason for Visit Anxiety and depressi on Hx of colonoscopy Hyperlipemia Prostate cancer HTN (hypertension) Medicare annual wellness visit, subsequent Anxiety and depression Hyperlipemia Imbalance HTN (hypertension) Chief Complaint BRUISED RIB FLU SHOT Reason for Visit Abdominal fullness Anxiety and depression Need for influenza vaccination Additional Source Comments (unrecognized sect ion and content) No Status Records FoundNo Status Records FoundNo Status Records Found INFORMATION SOURCE (unrecogn ized section and content) DATE CREATED AUTHOR 11/20/2017 [facility] DATE CREATED AUTHOR AUTHOR'S ORGANIZ ATION 03/05/2023 [facility] DATE CREATED AUTHOR AUTHOR'S ORGANIZ ATION 09/03/2024 [facility] Goals (unrecognized section and content) Goals may be documented in a n alternate sectionGoals may be documented in an alternate sectionGoals may be documented in an alternate sectionGoals may be documented in an alternate sectionGoals may be documented in an alternate sectionGoals may be documented in an alternate section Care Teams (unrecognized sec tion and content) Team Status: Active Member Role Status Dates Dr. Compa Urbano MD Family Provider Active Dr. Ruby Peter MD Primary Care Provider Active Team Status: Inactive Member Role Status Dates Dr. Ruby Peter MD Primary Care Provider, [facility] Provider Active Team Status: Inactive Member Role Status Dates Dr. Ruby Peter MD Primary Care Pro vider, Attending Provider, Referring Provider Active Team Status: Inactive Member Role Status Dates Dr. Ruby Peter MD Primary Care Provider Active Dr. Capo Mccullough MD Attending Provider Active Flue Cleaner Relationship Specialty Start Date End Date Ruby Peter MD [address] [place] [address] PCP - General Internal Medicine 12/31/22 Team Status: Inactive Member Role Status Dates Dr. Ruby Peter MD Primary Care Provider Active Lydia Simms MD Attending Provider, Referring Provide r Active Dr. Capo Mcculolugh MD Other Provider Active Source Comments (unrecognize d section and content) In the event this informatio n is protected by the Federal Confidentiality of Alcohol and Drug Abuse Patient Records regulations: The Federal rules restrict any use of the information to criminally investigate or prosecute any alcohol or drug abuse patient.[facility] Reason for Visit (unrecogniz ed section and content) Reason Comments type 2 diabetes FOR RECORDS PERTAINING TO PATIENTS WHO ARE [...] BE BASED ON THE PRIMARY CLINICAL RECORDS. [employer] provides no warranty or guarantee of the accuracy or completeness of information in this document.
--- NOTE | 2025-04-20 06:41 | RAD_ITS ---
PROCEDURE: CERV SPINE 4 OR 5 VIEWS 04/20/2025 REASON FOR EXAM: NECK PAIN WITH NEUROPATHY TECHNIQUE: Procedure Code: [facility] Modality: DX Procedure: CERV SPINE 4 OR 5 VIEWS COMPARISON: None FINDINGS: Vertebrae: Spondylosis at the C5-C6 and C6-C7 levels. disc spaces: Marked degree of disc space narrowing at the C5-C6 and C6-C7 levels. Mild bilateral neural foraminal stenosis at the C5-C6 level. Alignment: Loss of the normal cervical lordosis. soft tissues: Other: RAD/Cerv Spine 4 or 5 Views IMPRESSION: MODERATE CERVICAL DEGENERATIVE CHANGES. Disclaimer: Reading Location: [id number]
[2025-04-20 07:50] LABS: Cholesterol 208 mg/dL (<=200); Low Density Lipoprotein Calc. 137 mg/dL; Triglycerides 98 mg/dL; Very Low Density Lipoprotein 20 mg/dL (5-40); cholesterol:hdl ratio screen 3.90
[2025-04-20 07:55] LABS: PSA,Total - Annual Screen < 0.02 ng/mL (0.02-4.00)
== END | disposition home or self-care (01) ==
PROVIDERS: PCP Family Medicine; Referring Provider Family Medicine; Visit Provider Family Medicine
DX: Z12.5 Encounter for screening for malignant neoplasm of prostate (principal); M10.1 Lead-induced gout; E11.9 Type 2 diabetes mellitus without complications; E78.5 Hyperlipidemia, unspecified
CPT/HCPCS: 36415; 72050; 80061; 83036; 84153; G0103

== ENCOUNTER → 2025-05-01 | Outpatient (CLI) | payer MEDICARE, SELFPAY ==
[2025-05-01 15:33] LABS: Microalbumin,Random Urine 25.3 mg/L (<20 mg/L)
== END | disposition home or self-care (01) ==
LOC: MTLAB 11:09
PROVIDERS: PCP Family Medicine; Referring Provider Family Medicine; Visit Provider Family Medicine
DX: E11.9 Type 2 diabetes mellitus without complications (principal)
CPT/HCPCS: 82043